=== PATIENT | female | born 1955 | race Caucasian/White ===

== ENCOUNTER → 2016-06-28 | Outpatient (CLI) | payer BC ==
[2016-06-28 08:39] LABS: CHLORIDE,CL 102 mmol/L (98-110); SODIUM,NA 137 mmol/L (136-146)
== END ==
LOC: MW.CHFP 07:57
PROVIDERS: ATTEND Student in an Organized Health Care Education/Training Program
DX: Z00.00 Encounter for general adult medical examination without abnormal findings (principal); I10 Essential (primary) hypertension; E78.00 Pure hypercholesterolemia, unspecified
CPT/HCPCS: 36415; 80053; 80061; 84443

== ENCOUNTER 2016-07-19 22:31 | Emergency (ER) | payer BC ==
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
[2016-07-20] MEDS ORDERED: LORazepam 2 MG/ML MDV IVPUSH ONE (00:04)
[2016-07-20] MEDS ORDERED: diphenhydrAMINE 50 MG/ML SDV IVPUSH ONE (00:04)
[2016-07-20] MEDS ORDERED: Haloperidol Lactate 5 MG/ML SDV IM ONE (00:06)
[2016-07-20 00:41] LABS: CHLORIDE,CL 99 mmol/L (98-110); SODIUM,NA 132 mmol/L (136-146)
[2016-07-20 01:42] VITALS: BP 96/57
--- NOTE | 2016-07-20 11:41 | CT ---
EXAM DATE: 07/19/16 PATIENT'S AGE: 60 Patient: MARS BROWN Facility: [place], [place] Site . Site : 1955 Study: CT Head [id number]/3/2017 11:22:58 PM Ordering Physician: Doctor Gilliam Final Report: INDICATION: Trauma TECHNIQUE: CT head without contrast. COMPARISON: 01/29/2016 FINDINGS: The ventricles and sulci demonstrate normal configuration and size for the patient`s age. There is no mass effect or midline shift. Small hypodensities inferior to the basal ganglia could represent chronic lacunar infarcts or dilated perivascular spaces. There is no loss of cantrell-white differentiation. There is no evidence of an acute intracranial hemorrhage. There is a right orbital floor fracture. There is right periorbital, preseptal and facial soft tissue swelling. There is blood in the right maxillary sinus. There is ethmoid sinus mucosal thickening and a mucosal retention cyst or polyp in the right sphenoid sinus. There is sclerosis of the right mastoid tip. Right exophthalmos is noted. IMPRESSION: No evidence of an acute intracranial hemorrhage, mass effect or loss of cantrell- white differentiation. Right orbital floor fracture and periorbital swelling. Correlate with facial bone imaging. Dictated by Alec Meléndez MD @ 07/19/2016 11:38:19 PM Dictated by: Alec Meléndez MD @ 07/19/2016 23:38:24 (Electronic Signature) Report Signed by Proxy and Original Signed Document filed in the Medical Record. CHRISTINA
--- NOTE | 2016-07-20 11:42 | CT ---
EXAM DATE: 07/19/16 PATIENT'S AGE: 60 Patient: MARS BROWN Facility: [place], [place] Site . Site : 1955 Study: CT Facial [id number]/3/2017 11:23:53 PM Ordering Physician: Doctor Gilliam Final Report: INDICATION: Trauma TECHNIQUE: CT maxillofacial without contrast. COMPARISON: None available FINDINGS: There is a displaced right orbital floor fracture with approximately 8 millimeter depression into the right maxillary sinus. There is right periorbital , preseptal and facial soft tissue swelling. There is right exophthalmos. A small amount of right intraorbital, extraconal blood is seen along the lateral aspect of the orbital floor. There is mild thickening of the right inferior rectus muscle in the region of the fracture. Few small foci of right intraorbital, extraconal gas are noted. There is blood in the right maxillary sinus. Mucosal thickening is seen in the paranasal sinuses with a right sphenoid sinus mucosal retention cyst or polyp. IMPRESSION: A depressed right orbital floor fracture. Small right intraorbital, extraconal blood and mild thickening of the right inferior rectus muscle with right exophthalmos. Recommend further ophthalmologic evaluation. Dictated by Alec Meléndez MD @ 07/19/2016 11:46:07 PM Dictated by: Alec Meléndez MD @ 07/19/2016 23:46:16 (Electronic Signature) Report Signed by Proxy and Original Signed Document filed in the Medical Record. CHRISTINA
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
== END 2016-07-20 01:20 ==
LOC: MW.ED 22:31
DX: S02.31XA Fracture of orbital floor, right side, initial encounter for closed fracture (principal); I25.2 Old myocardial infarction; I25.10 Atherosclerotic heart disease of native coronary artery without angina pectoris; F32.9 Major depressive disorder, single episode, unspecified; E03.9 Hypothyroidism, unspecified; F17.210 Nicotine dependence, cigarettes, uncomplicated; Z98.890 Other specified postprocedural states; Z79.82 Long term (current) use of aspirin; Z79.899 Other long term (current) drug therapy; Z88.0 Allergy status to penicillin; Y09 Assault by unspecified means
CPT/HCPCS: 36415; 70450; 70486; 71010; 80053; 82553; 84484; 85025; 93005; 96374; 96375; 99285; G0480; J1200; J1630; J2060; 99283

== ENCOUNTER 2016-09-30 23:25 | Inpatient (IN) | payer BC ==
[2016-09-30] MEDS ORDERED: Sodium Chloride 0.9% 2,000 ML IV ONE (23:46)
[2016-09-30] MEDS ORDERED: Thiamine 200 MG/2 ML MDV IVPUSH ONE (23:46)
--- NOTE | 2016-09-30 23:49 | EDM.PDOC ---
ED HPI GENERAL MEDICAL PROBLEM - General Chief Complaint: Neurological Problem Stated Complaint: POSSIBLE STROKE Time Seen by Provider: 09/30/16 23:30 Source of Information: Reports: EMS History Limitations: Reports: Intoxication - History of Present Illness INITIAL COMMENTS - FREE TEXT/NARRATIVE: HISTORY AND PHYSICAL: History of present illness: [61-year-old female with a history of alcoholism hyponatremia and hypothyroidism with chronic noncompliance and multiple prior visits to the emergency department for intoxication alcohol abuse and complications thereof, now brought in by EMS for evaluation of altered mental status. Friend went to check on the patient and she was confused and generally weak. She was brought by EMS to the emergency department. Review of systems: As per history of present illness and below otherwise all systems reviewed and negative. Past medical history: As per history of present illness and as reviewed below otherwise noncontributory. Surgical history: As per history of present illness and as reviewed below otherwise noncontributory. Social history: No reported history of drug or alcohol abuse. Family history: As per history of present illness and as reviewed below otherwise noncontributory. Physical exam: Fatigued appearing patient falling asleep easily but easily awakened to verbal stimuli. A shunt is able to comply with a complete neurologic exam and answer questions. She is confused but her neurologic exam is nonfocal. HEENT: Atraumatic, normocephalic, pupils reactive, negative for conjunctival pallor or scleral icterus, mucous membranes moist, throat clear, neck supple, nontender, trachea midline. Lungs: Clear to auscultation, breath sounds equal bilaterally, chest nontender. Heart: S1S2, regular, negative for clicks, rubs, or JVD. Abdomen: Soft, nondistended, nontender. Negative for masses or hepatosplenomegaly. Negative for costovertebral tenderness. Pelvis: Stable nontender. Genitourinary: Deferred. Rectal: Deferred. Extremities: Atraumatic, negative for cords or calf pain. Neurovascular unremarkable. Neuro: Awake, somnolent but arousable, oriented x person and place. Cranial nerves II through XII unremarkable. Cerebellum unremarkable. Motor and sensory unremarkable throughout. Exam nonfocal. Diagnostics: [Chest x-ray unremarkable EKG normal sinus rhythm normal axis no STEMI] Therapeutics: [IV fluids initiated as well as supplemental potassium. Thiamine administered as well as IV Synthroid] Impression: [] Plan: [Patient with altered mental status initially suspected website optimization strategist intoxication given patient's extensive history of alcoholism however a: Was negative and sodium 102. Suspect patient's altered mental status is secondary to her severe hyponatremia. Cautious and conservative repletion of her sodium initiated with IV fluids. Potassium and Synthroid supplemented. CT of the head unremarkable and patient nonfocal neurologically. Case discussed with Dr. Amadeo Castillo hospitalist website optimization strategist who is aware history and findings and agrees with inpatient admission to his service to the ICU.] Critical care 73 minutes Definitive disposition and diagnosis as appropriate pending reevaluation and review of above. - Related Data Allergies Allergy/AdvReac Type Severity Reaction Status Date / Time Penicillins Allergy Cannot Verified 09/30/16 23:31 Remember Home Meds: Home Meds Aspirin [Halfprin] 81 mg PO DAILY #10 tab.ec 01/22/16 [Rx] Escitalopram [Lexapro] 20 mg PO DAILY #10 tablet 01/22/16 [Rx] Levothyroxine Sodium [Levothyroxine Sodium] 150 mcg PO DAILY 07/19/16 [History] buPROPion HCl [Wellbutrin SR] 150 mg PO DAILY 07/19/16 [History] Past Medical History HEENT History: Reports: None Cardiovascular History: Reports: CAD, High Cholesterol, [place] Respiratory History: Reports: Asthma, COPD Gastrointestinal History: Reports: Pancreatitis Genitourinary History: Reports: None 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 History: Reports: 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 Neurological History: Reports: None Psychiatric History: Reports: Addiction, Depression Endocrine/Metabolic History: Reports: Hypothyroidism Hematologic History: Reports: None Immunologic History: Reports: None Oncologic (Cancer) History: Reports: None Dermatologic History: Reports: None - Infectious Disease History Infectious Disease History: Reports: None - Past Surgical History Musculoskeletal Surgical History: Reports: Other (See Below) Social & Family History - Family History Family Medical History: Noncontributory HEENT: Reports: None Cardiac: Reports: None Respiratory: Reports: None GI: Reports: None : Reports: None OBGYN: Reports: None Musculoskeletal: Reports: None Neurological: Reports: None Psychiatric: Reports: None Endocrine/Metabolic: Reports: None Hematologic: Reports: None Immunologic: Reports: None Dermatologic: Reports: None Oncologic: Reports: None - Tobacco Use Smoking Status *Q: Unknown Ever Smoked Years of Tobacco use: 20 Packs/Tins Daily: 2 Second Hand Smoke Exposure: No - Caffeine Use Caffeine Use: Reports: None - Alcohol Use Days Per Week of Alcohol Use: 7 Number of Drinks Per Day: 6 Total Drinks Per Week: 42 - Recreational Drug Use Recreational Drug Use: No - Living Situation & Occupation Living situation: Reports: ED ROS GENERAL - Review of Systems Review Of Systems: See Below (History of present illness) ED EXAM, GENERAL - Physical Exam Exam: See Below (History of present illness) Course - Vital Signs Last Recorded V/S: Last Vital Signs Temp 36.6 C 09/30/16 23:31 Pulse 68 09/30/16 23:31 Resp 16 09/30/16 23:31 BP 115/65 09/30/16 23:31 Pulse Ox 98 09/30/16 23:31 - Orders/Labs/Meds Orders: Active Orders 24 hr Category Date Time Status Patient Status [ADT] Stat ADT 10/01/16 00:52 Active EKG Documentation Completion [RC] STAT Care 09/30/16 23:46 Active Peripheral IV Care [RC] . DIRECTED Care 09/30/16 23:46 Active Chest 1V Frontal [CR] Stat Exams 09/30/16 23:46 Taken Head wo Cont [CT] Stat Exams 09/30/16 23:47 Taken FREE T3 [REF] Stat Lab 09/30/16 23:29 Received Peripheral IV Insertion Adult [OM.PC] Stat Oth 09/30/16 23:46 Ordered Medication Orders Sodium Chloride (Normal Saline) 1,000 mls @ 25 mls/hr IV .BOLUS ONE Stop: 10/02/16 17:22 Potassium Chloride/Sodium Chloride (Normal Saline With 40 Meq Kcl) 500 mls @ 125 mls/hr IV ASDIRECTED [facility] Labs: Laboratory Tests 09/30/16 09/30/16 09/30/16 Range/Units 23:29 23:29 23:29 WBC 20.96 H (4.0-11.0) K/uL RBC 4.39 (4.30-5.90) M/uL Hgb 14.7 (12.0-16.0) g/dL Hct 38.2 (36.0-46.0) % MCV 87.0 (80.0-98.0) fL MCH 33.5 H (27.0-32.0) pg MCHC 38.5 H (31.0-37.0) g/dL RDW Std Deviation 38.5 (28.0-62.0) fl RDW Coeff of Ayleen 12 (11.0-15.0) % Plt Count 209 (150-400) K/uL MPV 10.40 (7.40-12.00) fL Add Manual Diff YES Neutrophils % (Manual) 70 (48.0-80.0) % Band Neutrophils % 5 % Lymphocytes % (Manual) 12 L (16.0-40.0) % Monocytes % (Manual) 13 (0.0-15.0) % Nucleated RBC % 0.0 /100WBC Absolute Seg Neuts 14.7 Band Neutrophils # 1.0 Lymphocytes # (Manual) 2.5 Monocytes # (Manual) 2.7 Nucleated RBCs # 0 K/uL Sodium 102 L* (136-146) mmol/L Potassium 3.0 L (3.5-5.1) mmol/L Chloride 55 L (98-110) mmol/L Carbon Dioxide 27 (21-31) mmol/L BUN 12 (6.0-23.0) mg/dL Creatinine 0.7 (0.6-1.5) mg/dL Est Cr Clr Drug Dosing TNP Estimated GFR (MDRD) > 60.0 ml/min Glucose 106 (60-110) mg/dL Calcium 8.8 (8.8-10.8) mg/dL Total Bilirubin 1.2 (0.1-1.5) mg/dL AST 56 H (5-40) IU/L ALT 36 (8-54) IU/L Alkaline Phosphatase 71 (40-150) Troponin I < 0.10 (0.0-0.29) NG/ML Total Protein 7.0 (6.0-8.0) g/dL Albumin 4.5 (3.4-4.8) g/dL Globulin 2.5 (2.0-3.5) g/dL Albumin/Globulin Ratio 1.8 (1.3-2.8) TSH 3rd Generation 20.23 H (0.47-5.0) uIU/mL Urine Color Urine Appearance Urine pH (5.0-8.0) Ur Specific [place] (1.001-1.035) Urine Protein (NEGATIVE) mg/dL Urine Glucose (UA) (NEGATIVE) mg/dL Urine Ketones (NEGATIVE) mg/dL Urine Occult Blood (NEGATIVE) Urine Nitrite (NEGATIVE) Urine Bilirubin (NEGATIVE) Urine Urobilinogen (<2.0) EU/dL Ur Leukocyte Esterase (NEGATIVE) Urine RBC (0-2/HPF) Urine WBC (0-5/HPF) Ur Epithelial Cells (NONE-FEW) Urine Bacteria (NEGATIVE) Salicylates < 5.0 (0-20) mg/dL Urine Opiates Screen (NEGATIVE) Ur Oxycodone Screen (NEGATIVE) Urine Methadone Screen (NEGATIVE) Acetaminophen < 3.0 ug/mL Ur Barbiturates Screen (NEGATIVE) Ur Phencyclidine Scrn (NEGATIVE) Ur Amphetamine Screen (NEGATIVE) U Methamphetamines Scrn (NEGATIVE) U Benzodiazepines Scrn (NEGATIVE) U Cocaine Metab Screen (NEGATIVE) U Marijuana (THC) Screen (NEGATIVE) Ethyl Alcohol mg/dL 09/30/16 10/01/16 10/01/16 Range/Units 23:29 01:05 01:05 WBC (4.0-11.0) K/uL RBC (4.30-5.90) M/uL Hgb (12.0-16.0) g/dL Hct (36.0-46.0) % MCV (80.0-98.0) fL MCH (27.0-32.0) pg MCHC (31.0-37.0) g/dL RDW Std Deviation (28.0-62.0) fl RDW Coeff of Ayleen (11.0-15.0) % Plt Count (150-400) K/uL MPV (7.40-12.00) fL Add Manual Diff Neutrophils % (Manual) (48.0-80.0) % Band Neutrophils % % Lymphocytes % (Manual) (16.0-40.0) % Monocytes % (Manual) (0.0-15.0) % Nucleated RBC % /100WBC Absolute Seg Neuts Band Neutrophils # Lymphocytes # (Manual) Monocytes # (Manual) Nucleated RBCs # K/uL Sodium (136-146) mmol/L Potassium (3.5-5.1) mmol/L Chloride (98-110) mmol/L Carbon Dioxide (21-31) mmol/L BUN (6.0-23.0) mg/dL Creatinine (0.6-1.5) mg/dL Est Cr Clr Drug Dosing Estimated GFR (MDRD) ml/min Glucose (60-110) mg/dL Calcium (8.8-10.8) mg/dL Total Bilirubin (0.1-1.5) mg/dL AST (5-40) IU/L ALT (8-54) IU/L Alkaline Phosphatase (40-150) Troponin I (0.0-0.29) NG/ML Total Protein (6.0-8.0) g/dL Albumin (3.4-4.8) g/dL Globulin (2.0-3.5) g/dL Albumin/Globulin Ratio (1.3-2.8) TSH 3rd Generation (0.47-5.0) uIU/mL Urine Color YELLOW Urine Appearance CLEAR Urine pH 6.0 (5.0-8.0) Ur Specific [place] 1.025 (1.001-1.035) Urine Protein TRACE (NEGATIVE) mg/dL Urine Glucose (UA) NEGATIVE (NEGATIVE) mg/dL Urine Ketones 15 H (NEGATIVE) mg/dL Urine Occult Blood NEGATIVE (NEGATIVE) Urine Nitrite NEGATIVE (NEGATIVE) Urine Bilirubin NEGATIVE (NEGATIVE) Urine Urobilinogen 0.2 (<2.0) EU/dL Ur Leukocyte Esterase NEGATIVE (NEGATIVE) Urine RBC 0-2 (0-2/HPF) Urine WBC 0-1 (0-5/HPF) Ur Epithelial Cells RARE (NONE-FEW) Urine Bacteria FEW (NEGATIVE) Salicylates (0-20) mg/dL Urine Opiates Screen NEGATIVE (NEGATIVE) Ur Oxycodone Screen NEGATIVE (NEGATIVE) Urine Methadone Screen NEGATIVE (NEGATIVE) Acetaminophen ug/mL Ur Barbiturates Screen NEGATIVE (NEGATIVE) Ur Phencyclidine Scrn NEGATIVE (NEGATIVE) Ur Amphetamine Screen NEGATIVE (NEGATIVE) U Methamphetamines Scrn NEGATIVE (NEGATIVE) U Benzodiazepines Scrn NEGATIVE (NEGATIVE) U Cocaine Metab Screen NEGATIVE (NEGATIVE) U Marijuana (THC) Screen NEGATIVE (NEGATIVE) Ethyl Alcohol < 10.0 mg/dL Meds: Medications Generic Name Dose Route Start Last Admin Trade Name Freq PRN Reason Stop Dose Admin Sodium Chloride 1,000 mls @ 25 mls/hr 10/01/16 01:23 Normal Saline IV 10/02/16 17:22 .BOLUS ONE Potassium Chloride/Sodium Chloride 500 mls @ 125 mls/hr 10/01/16 01:30 Normal Saline With 40 Meq Kcl IV ASDIRECTED [facility] Discontinued Medications Generic Name Dose Route Start Last Admin Trade Name Padilla PRN Reason Stop Dose Admin Sodium Chloride 2,000 mls @ 999 mls/hr 09/30/16 23:46 10/01/16 00:34 Normal Saline IV 10/01/16 01:46 Not Given .Bolus ONE Sodium Chloride 1,000 mls @ 200 mls/hr 10/01/16 00:08 10/01/16 00:34 Normal Saline IV 10/01/16 05:07 200 mls/hr .BOLUS ONE Administration Potassium Chloride/Dextrose/Sod Cl 50 mls @ 25 mls/hr 10/01/16 00:45 D5 Ns With 20 Meq Kcl IV ASDIRECTED [facility] Levothyroxine Sodium 100 mcg 10/01/16 00:48 10/01/16 01:51 Synthroid IVPUSH 10/01/16 00:49 100 mcg ONETIME ONE Administration Ondansetron HCl 4 mg 10/01/16 00:23 10/01/16 00:34 Zofran IVPUSH 10/01/16 00:24 4 mg ONETIME ONE Administration Thiamine HCl 100 mg 09/30/16 23:46 10/01/16 00:34 Vitamin B-1 IVPUSH 09/30/16 23:47 100 mg ONETIME ONE Administration Departure - Departure Time of Disposition: 00:56 Disposition: Admitted As Inpatient 65 Condition: Critical Clinical Impression: Hyponatremia, Hypokalemia, Hypochloremia, Noncompliance with medication regimen , Hypothyroidism, Altered mental status - Discharge Information - My Orders Last 24 Hours: My Active Orders 09/30/16 23:29 FREE T3 [REF] Stat 09/30/16 23:46 EKG Documentation Completion [RC] STAT Peripheral IV Care [RC] . DIRECTED Chest 1V Frontal [CR] Stat Peripheral IV Insertion Adult [OM.PC] Stat 09/30/16 23:47 Head wo Cont [CT] Stat 10/01/16 00:52 Patient Status [ADT] Stat - Assessment/Plan Last 24 Hours: My Active Orders 09/30/16 23:29 FREE T3 [REF] Stat 09/30/16 23:46 EKG Documentation Completion [RC] STAT Peripheral IV Care [RC] . DIRECTED Chest 1V Frontal [CR] Stat Peripheral IV Insertion Adult [OM.PC] Stat 09/30/16 23:47 Head wo Cont [CT] Stat 10/01/16 00:52 Patient Status [ADT] Stat
[2016-09-30 23:56] LABS: CHLORIDE,CL 55 mmol/L (98-110); SODIUM,NA 102 mmol/L (136-146)
[2016-10-01 00:05] LABS: ACETAMINOPHEN < 3.0 ug/mL
[2016-10-01] MEDS ORDERED: Sodium Chloride 0.9% 1,000 ML IV ONE ×2 (00:08→01:23)
[2016-10-01] MEDS ORDERED: Ondansetron 4 MG/2 ML SDV IVPUSH ONE (00:23)
[2016-10-01] MEDS ORDERED: DEXTROSE IV SCH (00:45)
[2016-10-01] MEDS ORDERED: KCL IV SCH (00:45)
[2016-10-01] MEDS ORDERED: NACL IV SCH (00:45)
[2016-10-01] MEDS ORDERED: Levothyroxine 100 MCG Vial IVPUSH ONE (00:48)
[2016-10-01] MEDS ORDERED: Sodium Chloride 0.9% with KCl 500 ML IV SCH (01:30)
[2016-10-01 02:41] LABS: CHLORIDE,CL 56 mmol/L (98-110); SODIUM,NA 102 mmol/L (136-146)
[2016-10-01] MEDS ORDERED: Potassium Chloride 20 MEQ Tab.ER PO ONE ×2 (02:57→19:35)
[2016-10-01] MEDS ORDERED: LORazepam 2 MG/ML MDV IVPUSH PRN (03:05)
[2016-10-01] MEDS ORDERED: Sodium Chloride 0.9% with KCl 1,000 ML IV SCH (03:15)
--- NOTE | 2016-10-01 03:15 | PCM.HP ---
H&P History of Present Illness - History of Present Illness Initial Comments - Free Text/Narative: 61 yo female with pmh of hypothyrodism and alcoholism. She has had multiple admission for alcohol intoxication and hyponatremia. She presents to the ED due to altered mental status. She was found by friends to be confused with generalized weakness. In the ED she was noted to have a sodium of 102 but alcohol level was undetectable. - Related Data Allergies/Adverse Reactions: Allergies Allergy/AdvReac Type Severity Reaction Status Date / Time Penicillins Allergy Cannot Verified 09/30/16 23:31 Remember Home Medications: Home Meds Aspirin [Halfprin] 81 mg PO DAILY #10 tab.ec 01/22/16 [Rx] Escitalopram [Lexapro] 20 mg PO DAILY #10 tablet 01/22/16 [Rx] Levothyroxine Sodium [Levothyroxine Sodium] 150 mcg PO ACBREAKFAST 07/19/16 [ History] buPROPion HCl [Wellbutrin SR] 150 mg PO BID 07/19/16 [History] Past Medical History HEENT History: Reports: None Cardiovascular History: Reports: CAD, High Cholesterol, [place] Respiratory History: Reports: Asthma, COPD Gastrointestinal History: Reports: Pancreatitis Genitourinary History: Reports: None [employer] History: Reports: None Neurological History: Reports: None Psychiatric History: Reports: Addiction, Depression Endocrine/Metabolic History: Reports: Hypothyroidism Hematologic History: Reports: None Immunologic History: Reports: None Oncologic (Cancer) History: Reports: None Dermatologic History: Reports: None - Infectious Disease History Infectious Disease History: Reports: None - Past Surgical History Musculoskeletal Surgical History: Reports: Other (See Below) Social & Family History - Family History Family Medical History: Noncontributory HEENT: Reports: None Cardiac: Reports: None Respiratory: Reports: None GI: Reports: None : Reports: None OBGYN: Reports: None Musculoskeletal: Reports: None Neurological: Reports: None Psychiatric: Reports: None Endocrine/Metabolic: Reports: None Hematologic: Reports: None Immunologic: Reports: None Dermatologic: Reports: None Oncologic: Reports: None - Tobacco Use Smoking Status *Q: Unknown Ever Smoked Years of Tobacco use: 20 Packs/Tins Daily: 2 Second Hand Smoke Exposure: No - Caffeine Use Caffeine Use: Reports: None - Alcohol Use Days Per Week of Alcohol Use: 7 Number of Drinks Per Day: 6 Total Drinks Per Week: 42 - Recreational Drug Use Recreational Drug Use: No - Living Situation & Occupation Living situation: Reports: H&P Review of Systems - Review of Systems: Review Of Systems: See Below Exam - Exam Exam: See Below - Vital Signs Vital Signs: Last Vital Signs Temp 36.1 C 10/01/16 02:00 Pulse 68 09/30/16 23:31 Resp 12 10/01/16 02:00 BP 113/59 L 10/01/16 02:00 Pulse Ox 97 10/01/16 02:00 Weight: 43.998 kg - Exam General: Alert, Oriented (orientated to place), Lethargic HEENT: Mucosa Moist & [place] Neck: Supple, Trachea Midline, Full Range of Motion. No: JVD Lungs: Clear to Auscultation, Normal Respiratory Effort Cardiovascular: Regular Rate, Regular Rhythm Abdomen: Soft. No: Tenderness Extremities: Normal Inspection. No: Edema Skin: Warm, Dry, Intact Neurological: Cranial Nerves Intact, Strength Equal Bilateral, Normal Speech, Normal Tone. No: Focal Deficit Neuro Extensive - Mental Status: Memory Loss-Recent Events (unable to recall todays events) - Patient Data Lab Results Last 24 hrs: Laboratory Results - last 24 hr 10/01/16 10/01/16 Range/Units 02:20 02:20 Sodium 102 L* (136-146) mmol/L Potassium 2.9 L (3.5-5.1) mmol/L Chloride 56 L (98-110) mmol/L Carbon Dioxide 30 (21-31) mmol/L BUN 11 (6.0-23.0) mg/dL Creatinine 0.6 (0.6-1.5) mg/dL Est Cr Clr Drug Dosing TNP Estimated GFR (MDRD) > 60.0 ml/min Glucose 79 (60-110) mg/dL Calcium 8.4 L (8.8-10.8) mg/dL Magnesium 1.7 (1.5-2.3) mEq/L Result Diagrams: 10/01/16 08:25 10/01/16 10:49 *Q Meaningful Use (ADM) - VTE *Q VTE Criteria *Q: - Stroke *Q Stroke Criteria *Q: - AMI *Q AMI Criteria *Q: Problem List Initiated/Reviewed/Updated: Yes Orders Last 24hrs: Active Orders 24 hr Category Date Time Status BMP [BASIC METABOLIC PANEL,BMP] [CHEM] Q2H Lab 10/01/16 04:30 Ordered BMP [BASIC METABOLIC PANEL,BMP] [CHEM] Q2H Lab 10/01/16 06:30 Ordered BMP [BASIC METABOLIC PANEL,BMP] [CHEM] Q2H Lab 10/01/16 08:30 Ordered MAGNESIUM [CHEM] Routine Lab 10/01/16 02:20 Results OSMOLALITY - SERUM [REF] Routine Lab 10/01/16 02:46 Received OSMOLALITY - URINE Routine Lab 10/01/16 02:46 Ordered SODIUM,URINE RANDOM [URCHEM] Routine Lab 10/01/16 02:50 Uncollected T4 FREE [CHEM] Routine Lab 10/01/16 02:20 Results T4 TOTAL [CHEM] Routine Lab 10/01/16 02:20 Results Folic Acid Med 10/01/16 09:00 Active 1 mg SUBCUT DAILY LORazepam [Ativan] Med 10/01/16 03:05 Ordered See Protocol IVPUSH Q4H PRN Sodium Chloride 0.9% with KCl 40 mEq @ Enter Rate (1000 Med 10/01/16 03:15 Ordered mL) Sodium Chloride 0.9% with KCl [Normal Saline with 40 mEq KCl] 1,000 ml IV ASDIRECTED Thiamine [Vitamin B-1] Med 10/01/16 21:00 Active 100 mg PO BEDTIME Medication Orders Folic Acid (Folic Acid) 1 mg SUBCUT DAILY EDOUARD Potassium Chloride/Sodium Chloride (Normal Saline With 40 Meq Kcl) 1,000 mls @ 150 mls/hr IV ASDIRECTED EDOUARD Stop: 10/01/16 09:54 Lorazepam (Ativan) 0 mg IVPUSH Q4H PRN; Protocol PRN Reason: Agitation Thiamine HCl (Vitamin B-1) 100 mg PO BEDTIME EDOUARD Assessment/Plan Comment:: 61 yo female who presents with altered mental status. Patient is alert, cooperative but lethargic. She has severe hyponatremia with history of alcohol abuse. Difficult to assess how far off from baseline her mental status is. Hyponatremia: sodium is 102. I called eICU and spoke with Dr. Tolentino who will help with monitoring sodium. Will give NS at 150 and check sodium q2hrs ETOH abuse: Thiamin and folic acid, CIWA protocol with prn ativan Hypothyrodsim: will check t4, 100mg IV of synthroid given in ED.
[2016-10-01 05:39] LABS: CHLORIDE,CL 58 mmol/L (98-110)
[2016-10-01 05:42] LABS: SODIUM,NA 105 mmol/L (136-146)
[2016-10-01 07:02] LABS: CHLORIDE,CL 62 mmol/L (98-110)
[2016-10-01 07:15] LABS: SODIUM,NA 104 mmol/L (136-146)
[2016-10-01] MEDS: Folic Acid 50 MG/10 ML MDV SUBCUT SCH (08:26)
[2016-10-01 09:04] LABS: CHLORIDE,CL 65 mmol/L (98-110)
[2016-10-01 09:14] LABS: SODIUM,NA 108 mmol/L (136-146)
[2016-10-01] MEDS ORDERED: Sodium Chloride 0.45% with KCl 1,000 ML IV SCH (10:30)
[2016-10-01] MEDS: Nicotine 21 MG/24 Hr Patch TRDERM SCH (10:46)
[2016-10-01] MEDS: Ondansetron 4 MG/2 ML SDV IVPUSH PRN ×2 (11:45→21:44)
[2016-10-01 12:19] LABS: CHLORIDE,CL 70 mmol/L (98-110)
[2016-10-01 12:26] LABS: SODIUM,NA 111 mmol/L (136-146)
[2016-10-01] MEDS ORDERED: Dextrose 5% in Water 1,000 ML IV SCH (12:45)
--- NOTE | 2016-10-01 14:26 | PCM.PN ---
- Review of Systems Systems Review Comment:: more awake today. - Patient Data Vitals - most recent: Last Vital Signs Temp 36.9 C 10/01/16 11:00 Pulse 59 L 10/01/16 00:30 Resp 14 10/01/16 12:00 BP 110/59 L 10/01/16 12:00 Pulse Ox 98 10/01/16 12:00 Weight - most recent: 43.998 kg I&O - last 24 hours: Intake & Output 09/30/16 10/01/16 10/01/16 22:59 06:59 14:59 Intake Total 190 2000 Output Total 400 1400 Balance -210 600 Lab Results last 24 hrs: Laboratory Results - last 24 hr 10/01/16 10/01/16 10/01/16 Range/Units 02:20 02:20 04:25 WBC (4.0-11.0) K/uL RBC (4.30-5.90) M/uL Hgb (12.0-16.0) g/dL Hct (36.0-46.0) % MCV (80.0-98.0) fL MCH (27.0-32.0) pg MCHC (31.0-37.0) g/dL RDW Std Deviation (28.0-62.0) fl RDW Coeff of Ayleen (11.0-15.0) % Plt Count (150-400) K/uL MPV (7.40-12.00) fL Neut % (Auto) (48.0-80.0) % Lymph % (Auto) (16.0-40.0) % [place] % (Auto) (0.0-15.0) % Eos % (Auto) (0.0-7.0) % Baso % (Auto) (0.0-1.5) % Neut # (Auto) (1.4-5.7) K/uL Lymph # (Auto) (0.6-2.4) K/uL [place] # (Auto) (0.0-0.8) K/uL Eos # (Auto) (0.0-0.7) K/uL Baso # (Auto) (0.0-0.1) K/uL Nucleated RBC % /100WBC Nucleated RBCs # K/uL Sodium 102 L* 105 L* (136-146) mmol/L Potassium 2.9 L 3.1 L (3.5-5.1) mmol/L Chloride 56 L 58 L (98-110) mmol/L Carbon Dioxide 30 28 (21-31) mmol/L BUN 11 11 (6.0-23.0) mg/dL Creatinine 0.6 0.6 (0.6-1.5) mg/dL Est Cr Clr Drug Dosing TNP TNP Estimated GFR (MDRD) > 60.0 > 60.0 ml/min Glucose 79 66 (60-110) mg/dL Calcium 8.4 L 8.4 L (8.8-10.8) mg/dL Magnesium 1.7 (1.5-2.3) mEq/L Free T4 1.10 (0.7-1.48) ng/dL 10/01/16 10/01/16 10/01/16 Range/Units 06:35 08:25 08:25 WBC 20.79 H (4.0-11.0) K/uL RBC 4.20 L (4.30-5.90) M/uL Hgb 14.2 (12.0-16.0) g/dL Hct 37.1 (36.0-46.0) % MCV 88.3 (80.0-98.0) fL MCH 33.8 H (27.0-32.0) pg MCHC 38.3 H (31.0-37.0) g/dL RDW Std Deviation 39.0 (28.0-62.0) fl RDW Coeff of Ayleen 12 (11.0-15.0) % Plt Count 181 (150-400) K/uL MPV 10.50 (7.40-12.00) fL Neut % (Auto) 82.8 H (48.0-80.0) % Lymph % (Auto) 4.8 L (16.0-40.0) % [place] % (Auto) 12.4 (0.0-15.0) % Eos % (Auto) 0.0 (0.0-7.0) % Baso % (Auto) 0.0 (0.0-1.5) % Neut # (Auto) 17.2 H (1.4-5.7) K/uL Lymph # (Auto) 1.0 (0.6-2.4) K/uL [place] # (Auto) 2.6 H (0.0-0.8) K/uL Eos # (Auto) 0.0 (0.0-0.7) K/uL Baso # (Auto) 0.0 (0.0-0.1) K/uL Nucleated RBC % 0.3 /100WBC Nucleated RBCs # 0 K/uL Sodium 104 L* 108 L* (136-146) mmol/L Potassium 3.1 L 3.2 L (3.5-5.1) mmol/L Chloride 62 L 65 L (98-110) mmol/L Carbon Dioxide 28 27 (21-31) mmol/L BUN 11 10 (6.0-23.0) mg/dL Creatinine 0.6 0.6 (0.6-1.5) mg/dL Est Cr Clr Drug Dosing 74.74 74.74 Estimated GFR (MDRD) > 60.0 > 60.0 ml/min Glucose 74 72 (60-110) mg/dL Calcium 8.0 L 8.1 L (8.8-10.8) mg/dL Magnesium (1.5-2.3) mEq/L Free T4 (0.7-1.48) ng/dL 10/01/16 Range/Units 10:49 WBC (4.0-11.0) K/uL RBC (4.30-5.90) M/uL Hgb (12.0-16.0) g/dL Hct (36.0-46.0) % MCV (80.0-98.0) fL MCH (27.0-32.0) pg MCHC (31.0-37.0) g/dL RDW Std Deviation (28.0-62.0) fl RDW Coeff of Ayleen (11.0-15.0) % Plt Count (150-400) K/uL MPV (7.40-12.00) fL Neut % (Auto) (48.0-80.0) % Lymph % (Auto) (16.0-40.0) % [place] % (Auto) (0.0-15.0) % Eos % (Auto) (0.0-7.0) % Baso % (Auto) (0.0-1.5) % Neut # (Auto) (1.4-5.7) K/uL Lymph # (Auto) (0.6-2.4) K/uL [place] # (Auto) (0.0-0.8) K/uL Eos # (Auto) (0.0-0.7) K/uL Baso # (Auto) (0.0-0.1) K/uL Nucleated RBC % /100WBC Nucleated RBCs # K/uL Sodium 111 L* (136-146) mmol/L Potassium 3.3 L (3.5-5.1) mmol/L Chloride 70 L (98-110) mmol/L Carbon Dioxide 28 (21-31) mmol/L BUN 10 (6.0-23.0) mg/dL Creatinine 0.7 (0.6-1.5) mg/dL Est Cr Clr Drug Dosing 64.06 Estimated GFR (MDRD) > 60.0 ml/min Glucose 75 (60-110) mg/dL Calcium 8.5 L (8.8-10.8) mg/dL Magnesium (1.5-2.3) mEq/L Free T4 (0.7-1.48) ng/dL Med Orders - Current: Current Medications Folic Acid (Folic Acid) 1 mg SUBCUT DAILY [facility] Last Admin: 10/01/16 08:26 Dose: 1 mg Dextrose/Water (Dextrose 5% In Water) 1,000 mls @ 50 mls/hr IV ASDIRECTED [facility] Last Admin: 10/01/16 12:55 Dose: 50 mls/hr Levofloxacin (Levaquin) 750 mg PO Q24H EDOUARD Lorazepam (Ativan) 0 mg IVPUSH Q4H PRN; Protocol PRN Reason: Agitation Nicotine (Habitrol) 21 mg TRDERM DAILY [facility] Last Admin: 10/01/16 10:46 Dose: 21 mg Ondansetron HCl (Zofran) 4 mg IVPUSH Q6H PRN PRN Reason: Nausea/Vomiting Last Admin: 10/01/16 11:45 Dose: 4 mg Thiamine HCl (Vitamin B-1) 100 mg PO BEDTIME EDOUARD Discontinued Medications Sodium Chloride (Normal Saline) 2,000 mls @ 999 mls/hr IV .Bolus ONE Stop: 10/01/16 01:46 Last Admin: 10/01/16 00:34 Dose: Not Given Sodium Chloride (Normal Saline) 1,000 mls @ 200 mls/hr IV .BOLUS ONE Stop: 10/01/16 05:07 Last Admin: 10/01/16 00:34 Dose: 200 mls/hr Potassium Chloride/Dextrose/Sod Cl (D5 Ns With 20 Meq Kcl) 50 mls @ 25 mls/hr IV ASDIRECTED EDOUARD Sodium Chloride (Normal Saline) 1,000 mls @ 25 mls/hr IV .BOLUS ONE Stop: 10/02/16 17:22 Last Infusion: 10/01/16 02:31 Dose: 25 mls/hr Potassium Chloride/Sodium Chloride (Normal Saline With 40 Meq Kcl) 500 mls @ 125 mls/hr IV ASDIRECTED EDOUARD Last Infusion: 10/01/16 02:32 Dose: 125 mls/hr Potassium Chloride/Sodium Chloride (Normal Saline With 40 Meq Kcl) 1,000 mls @ 150 mls/hr IV ASDIRECTED EDOUARD Stop: 10/01/16 09:54 Last Admin: 10/01/16 03:22 Dose: 150 mls/hr Potassium Chloride/Sodium Chloride (1/2 Ns With 20 Meq Kcl) 1,000 mls @ 50 mls/ hr IV ASDIRECTED EDOUARD Last Admin: 10/01/16 10:50 Dose: 50 mls/hr Levothyroxine Sodium (Synthroid) 100 mcg IVPUSH ONETIME ONE Stop: 10/01/16 00:49 Last Admin: 10/01/16 01:51 Dose: 100 mcg Ondansetron HCl (Zofran) 4 mg IVPUSH ONETIME ONE Stop: 10/01/16 00:24 Last Admin: 10/01/16 00:34 Dose: 4 mg Potassium Chloride (Klor-Con M20) 40 meq PO ONETIME ONE Stop: 10/01/16 02:58 Last Admin: 10/01/16 03:07 Dose: 40 meq Thiamine HCl (Vitamin B-1) 100 mg IVPUSH ONETIME ONE Stop: 09/30/16 23:47 Last Admin: 10/01/16 00:34 Dose: 100 mg - Exam General: alert, oriented HEENT: Mucous membr. moist/pink Neck: supple Lungs: Clear to auscultation, Normal respiratory effort Cardiovascular: Regular Rate, Regular Rhythm Abdomen: bowel sounds present, soft, no tenderness, no distension Back Exam: No: CVA Tenderness (L), CVA Tenderness (R) Extremities: no edema Skin: warm, dry, intact Neurological: no new focal deficit - Problem List Review Problem List Initiated/Reviewed/Updated: Yes - My Orders Last 24 Hours: My Active Orders 10/01/16 01:05 CULTURE URINE [RM] Routine OSMOLALITY - URINE Routine 10/01/16 02:20 MAGNESIUM [CHEM] Routine T4 FREE [CHEM] Routine T4 TOTAL [CHEM] Routine 10/01/16 02:46 OSMOLALITY - SERUM [REF] Routine 10/01/16 03:05 LORazepam [Ativan] See Protocol IVPUSH Q4H PRN 10/01/16 09:00 Folic Acid 1 mg SUBCUT DAILY 10/01/16 10:19 Blood Culture x2 Reflex Set [OM.PC] Stat 10/01/16 10:34 CULTURE BLOOD [BC] Stat 10/01/16 10:49 CULTURE BLOOD [BC] Stat 10/01/16 14:30 Levofloxacin [Levaquin] 750 mg PO Q24H 10/01/16 21:00 Thiamine [Vitamin B-1] 100 mg PO BEDTIME 10/01/16 Breakfast Regular Diet [DIET] 10/02/16 05:11 CBC WITH AUTO DIFF [HEME] AM 10/03/16 05:11 CBC WITH AUTO DIFF [HEME] AM 10/04/16 05:11 CBC WITH AUTO DIFF [HEME] AM - Plan Plan:: 61 yo female who presents with altered mental status. Patient is alert, cooperative but lethargic. She has severe hyponatremia with history of alcohol abuse. Difficult to assess how far off from baseline her mental status is. Hyponatremia: sodium is 111. patient on d5W to slow down rate of correction. eICU following ETOH abuse: Thiamin and folic acid, CIWA protocol with prn ativan Hypothyrodsim: resume home dose of thyroid replacement Leukocytosis: unexplained no source identified on exam. no fevers, patient does not appear toxic. patient does report dysuria. Will start Levaquin empirically. blood and urine cultures obtained.
[2016-10-01] MEDS ORDERED: Levofloxacin 500 MG Tab PO SCH (14:30)
[2016-10-01] MEDS: Levofloxacin 250 MG Tab PO SCH (14:44)
[2016-10-01 15:08] LABS: CHLORIDE,CL 72 mmol/L (98-110)
[2016-10-01 15:11] LABS: SODIUM,NA 113 mmol/L (136-146)
[2016-10-01] MEDS: Desmopressin 4 MCG/1 ML Amp SUBCUT SCH ×2 (16:12→18:32)
--- NOTE | 2016-10-01 17:35 | CT ---
EXAM DATE: 10/01/16 PATIENT'S AGE: 61 Patient: MARS BROWN Facility: [place], [place] Site . Site : 1955 Study: CT Head [id number]/[id number] 11:51:49 PM Ordering Physician: Doctor Gilliam Final Report: INDICATION: Change in mental status TECHNIQUE: CT head without contrast. COMPARISON: 07/18/2016 FINDINGS: CSF spaces: Within normal limits for age. Brain parenchyma: The cantrell-white differentiation is normal. No sign of mass, hemorrhage, or midline shift. Skull base and calvarium: Serosal thickening right maxillary sinus. The visualized orbits are grossly unremarkable. No skull fractures. IMPRESSION: Unremarkable noncontrast head CT. Dictated by Tyrel Pierre MD @ 10/01/2016 12:05:17 AM Dictated by: Tyrel Pierre MD @ 10/01/2016 00:05:19 (Electronic Signature) Report Signed by Proxy. CHRISTINA
--- NOTE | 2016-10-01 17:36 | CR ---
EXAM DATE: 10/01/16 PATIENT'S AGE: 61 Patient: MARS BROWN Facility: [place], [place] Site . Site : 1955 Study: XRay Chest [id number]/16/2017 12:06:34 AM Ordering Physician: Doctor Gilliam Final Report: INDICATION: Altered mental status TECHNIQUE: Chest radiograph 1 view COMPARISON: 07/20/2016. FINDINGS: Cardiovascular and mediastinum: The heart silhouette is normal in size and morphology. The mediastinum is normal in appearance. Lungs and pleural spaces: Both lungs are unremarkable in appearance. No sign of pleural effusion seen. No pneumothorax is identified. Bones and soft tissues: Left clavicular reconstruction plate noted without interval change. IMPRESSION: 1. No acute cardiopulmonary disease is seen. Dictated by Abhi Escalante MD @ 10/01/2016 12:11:35 AM Dictated by: Abhi Escalante MD @ 10/01/2016 00:12:10 (Electronic Signature) Report Signed by Proxy. CHRISTINA
[2016-10-01 19:27] LABS: CHLORIDE,CL 73 mmol/L (98-110)
[2016-10-01 19:33] LABS: SODIUM,NA 112 mmol/L (136-146)
[2016-10-01] MEDS ORDERED: Potassium Chloride 40 MEQ in Dextrose 5% in Water 1,000 ML IV SCH ×2 (19:45)
[2016-10-01] MEDS: Thiamine 100 MG Tab PO SCH (20:07)
[2016-10-01] MEDS: Aluminum Hydroxide/Magnesium Hydroxide/Simethicone Susp 30 ML Cup PO PRN (20:47)
[2016-10-01] MEDS: Morphine 2 MG/ML Syringe IVPUSH PRN (21:44)
[2016-10-01 23:40] LABS: CHLORIDE,CL 73 mmol/L (98-110)
[2016-10-01 23:41] LABS: SODIUM,NA 109 mmol/L (136-146)
[2016-10-02] MEDS ORDERED: Potassium Chloride 10% 20 MEQ/15 ML Soln 30 ML UD Cup PO ONE (00:09)
[2016-10-02] MEDS: Desmopressin 4 MCG/1 ML Amp SUBCUT SCH ×3 (00:29→13:01)
[2016-10-02 02:32] LABS: CHLORIDE,CL 75 mmol/L (98-110)
[2016-10-02 02:36] LABS: SODIUM,NA 110 mmol/L (136-146)
[2016-10-02] MEDS: Levothyroxine 150 MCG Tab PO SCH (06:40)
[2016-10-02 07:44] LABS: CHLORIDE,CL 79 mmol/L (98-110)
[2016-10-02 07:51] LABS: SODIUM,NA 112 mmol/L (136-146)
[2016-10-02] MEDS: Folic Acid 50 MG/10 ML MDV SUBCUT SCH (09:05)
[2016-10-02] MEDS: Nicotine 21 MG/24 Hr Patch TRDERM SCH (09:05)
[2016-10-02 12:55] LABS: CHLORIDE,CL 79 mmol/L (98-110)
[2016-10-02 12:58] LABS: SODIUM,NA 112 mmol/L (136-146)
--- NOTE | 2016-10-02 13:34 | PCM.PN ---
- Review of Systems Systems Review Comment:: reports abdominal pain - Patient Data Vitals - most recent: Last Vital Signs Temp 36.3 C 10/02/16 08:00 Pulse 59 L 10/01/16 00:30 Resp 13 10/02/16 13:00 BP 105/63 10/02/16 13:00 Pulse Ox 98 10/02/16 13:00 Weight - most recent: 47.5 kg I&O - last 24 hours: Intake & Output 10/01/16 10/02/16 10/02/16 22:59 06:59 14:59 Intake Total 487 767 Output Total 300 300 Balance 187 467 Lab Results last 24 hrs: Laboratory Results - last 24 hr 10/01/16 10/01/16 10/01/16 Range/Units 14:30 14:30 18:38 WBC (4.0-11.0) K/uL RBC (4.30-5.90) M/uL Hgb (12.0-16.0) g/dL Hct (36.0-46.0) % MCV (80.0-98.0) fL MCH (27.0-32.0) pg MCHC (31.0-37.0) g/dL RDW Std Deviation (28.0-62.0) fl RDW Coeff of Ayleen (11.0-15.0) % Plt Count (150-400) K/uL MPV (7.40-12.00) fL Neut % (Auto) (48.0-80.0) % Lymph % (Auto) (16.0-40.0) % [place] % (Auto) (0.0-15.0) % Eos % (Auto) (0.0-7.0) % Baso % (Auto) (0.0-1.5) % Neut # (Auto) (1.4-5.7) K/uL Lymph # (Auto) (0.6-2.4) K/uL [place] # (Auto) (0.0-0.8) K/uL Eos # (Auto) (0.0-0.7) K/uL Baso # (Auto) (0.0-0.1) K/uL Nucleated RBC % /100WBC Nucleated RBCs # K/uL Lactate 0.9 (0.20-2.00) mmol/L Sodium 113 L* 112 L* (136-146) mmol/L Potassium 3.3 L 2.6 L (3.5-5.1) mmol/L Chloride 72 L 73 L (98-110) mmol/L Carbon Dioxide 30 26 (21-31) mmol/L BUN 12 12 (6.0-23.0) mg/dL Creatinine 0.7 0.7 (0.6-1.5) mg/dL Est Cr Clr Drug Dosing 57.88 57.88 mL/min Estimated GFR (MDRD) > 60.0 > 60.0 ml/min Glucose 100 123 H (60-110) mg/dL Calcium 8.5 L 8.0 L (8.8-10.8) mg/dL Troponin I (0.0-0.29) NG/ML 10/01/16 10/01/16 10/02/16 Range/Units 19:28 22:55 02:05 WBC (4.0-11.0) K/uL RBC (4.30-5.90) M/uL Hgb (12.0-16.0) g/dL Hct (36.0-46.0) % MCV (80.0-98.0) fL MCH (27.0-32.0) pg MCHC (31.0-37.0) g/dL RDW Std Deviation (28.0-62.0) fl RDW Coeff of Ayleen (11.0-15.0) % Plt Count (150-400) K/uL MPV (7.40-12.00) fL Neut % (Auto) (48.0-80.0) % Lymph % (Auto) (16.0-40.0) % [place] % (Auto) (0.0-15.0) % Eos % (Auto) (0.0-7.0) % Baso % (Auto) (0.0-1.5) % Neut # (Auto) (1.4-5.7) K/uL Lymph # (Auto) (0.6-2.4) K/uL [place] # (Auto) (0.0-0.8) K/uL Eos # (Auto) (0.0-0.7) K/uL Baso # (Auto) (0.0-0.1) K/uL Nucleated RBC % /100WBC Nucleated RBCs # K/uL Lactate (0.20-2.00) mmol/L Sodium 109 L* 110 L* (136-146) mmol/L Potassium 2.9 L 4.2 (3.5-5.1) mmol/L Chloride 73 L 75 L (98-110) mmol/L Carbon Dioxide 26 24 (21-31) mmol/L BUN 12 11 (6.0-23.0) mg/dL Creatinine 0.7 0.7 (0.6-1.5) mg/dL Est Cr Clr Drug Dosing 57.88 57.88 mL/min Estimated GFR (MDRD) > 60.0 > 60.0 ml/min Glucose 132 H 84 (60-110) mg/dL Calcium 7.8 L 8.1 L (8.8-10.8) mg/dL Troponin I < 0.10 (0.0-0.29) NG/ML 10/02/16 10/02/16 10/02/16 Range/Units 02:05 07:10 07:10 WBC 11.11 H (4.0-11.0) K/uL RBC 3.89 L (4.30-5.90) M/uL Hgb 12.9 (12.0-16.0) g/dL Hct 35.3 L (36.0-46.0) % MCV 90.7 (80.0-98.0) fL MCH 33.2 H (27.0-32.0) pg MCHC 36.5 (31.0-37.0) g/dL RDW Std Deviation 40.9 (28.0-62.0) fl RDW Coeff of Ayleen 12 (11.0-15.0) % Plt Count 172 (150-400) K/uL MPV 10.10 (7.40-12.00) fL Neut % (Auto) 72.8 (48.0-80.0) % Lymph % (Auto) 16.6 (16.0-40.0) % [place] % (Auto) 10.2 (0.0-15.0) % Eos % (Auto) 0.3 (0.0-7.0) % Baso % (Auto) 0.1 (0.0-1.5) % Neut # (Auto) 8.1 H (1.4-5.7) K/uL Lymph # (Auto) 1.8 (0.6-2.4) K/uL [place] # (Auto) 1.1 H (0.0-0.8) K/uL Eos # (Auto) 0.0 (0.0-0.7) K/uL Baso # (Auto) 0.0 (0.0-0.1) K/uL Nucleated RBC % 0.0 /100WBC Nucleated RBCs # 0 K/uL Lactate (0.20-2.00) mmol/L Sodium 112 L* (136-146) mmol/L Potassium 4.8 (3.5-5.1) mmol/L Chloride 79 L (98-110) mmol/L Carbon Dioxide 26 (21-31) mmol/L BUN 11 (6.0-23.0) mg/dL Creatinine 0.8 (0.6-1.5) mg/dL Est Cr Clr Drug Dosing 54.67 mL/min Estimated GFR (MDRD) > 60.0 ml/min Glucose 89 (60-110) mg/dL Calcium 8.3 L (8.8-10.8) mg/dL Troponin I < 0.10 (0.0-0.29) NG/ML 10/02/16 10/02/16 Range/Units 07:10 12:20 WBC (4.0-11.0) K/uL RBC (4.30-5.90) M/uL Hgb (12.0-16.0) g/dL Hct (36.0-46.0) % MCV (80.0-98.0) fL MCH (27.0-32.0) pg MCHC (31.0-37.0) g/dL RDW Std Deviation (28.0-62.0) fl RDW Coeff of Ayleen (11.0-15.0) % Plt Count (150-400) K/uL MPV (7.40-12.00) fL Neut % (Auto) (48.0-80.0) % Lymph % (Auto) (16.0-40.0) % [place] % (Auto) (0.0-15.0) % Eos % (Auto) (0.0-7.0) % Baso % (Auto) (0.0-1.5) % Neut # (Auto) (1.4-5.7) K/uL Lymph # (Auto) (0.6-2.4) K/uL [place] # (Auto) (0.0-0.8) K/uL Eos # (Auto) (0.0-0.7) K/uL Baso # (Auto) (0.0-0.1) K/uL Nucleated RBC % /100WBC Nucleated RBCs # K/uL Lactate (0.20-2.00) mmol/L Sodium 112 L* (136-146) mmol/L Potassium 4.0 (3.5-5.1) mmol/L Chloride 79 L (98-110) mmol/L Carbon Dioxide 24 (21-31) mmol/L BUN 12 (6.0-23.0) mg/dL Creatinine 0.7 (0.6-1.5) mg/dL Est Cr Clr Drug Dosing 62.48 mL/min Estimated GFR (MDRD) > 60.0 ml/min Glucose 80 (60-110) mg/dL Calcium 8.5 L (8.8-10.8) mg/dL Troponin I < 0.10 (0.0-0.29) NG/ML Jonathan Results last 24 hrs: Microbiology 10/01/16 10:49 Aerobic Blood Culture - Preliminary Blood - Venous NO GROWTH AFTER 1 DAY Anaerobic Blood Culture - Preliminary NO GROWTH AFTER 1 DAY 10/01/16 10:34 Aerobic Blood Culture - Preliminary Blood - Venous - Lab Draw NO GROWTH AFTER 1 DAY Anaerobic Blood Culture - Preliminary NO GROWTH AFTER 1 DAY Med Orders - Current: Current Medications Al Hydroxide/Mg Hydroxide (Mag-Al Plus) 30 ml PO Q4H PRN PRN Reason: Indigestion Last Admin: 10/01/16 20:47 Dose: 30 ml Folic Acid (Folic Acid) 1 mg SUBCUT DAILY [facility] Last Admin: 10/02/16 09:05 Dose: 1 mg Levofloxacin (Levaquin) 750 mg PO Q24H [facility] Last Admin: 10/01/16 14:44 Dose: 750 mg Levothyroxine Sodium (Levothyroxine) 150 mcg PO ACBREAKFAST [facility] Last Admin: 10/02/16 06:40 Dose: 150 mcg Lorazepam (Ativan) 0 mg IVPUSH Q4H PRN; Protocol PRN Reason: Agitation Morphine Sulfate (Morphine) 2 mg IVPUSH Q2H PRN PRN Reason: Pain Last Admin: 10/01/16 21:44 Dose: 2 mg Nicotine (Habitrol) 21 mg TRDERM DAILY [facility] Last Admin: 10/02/16 09:05 Dose: 21 mg Ondansetron HCl (Zofran) 4 mg IVPUSH Q6H PRN PRN Reason: Nausea/Vomiting Last Admin: 10/01/16 21:44 Dose: 4 mg Thiamine HCl (Vitamin B-1) 100 mg PO BEDTIME [facility] Last Admin: 10/01/16 20:07 Dose: 100 mg Discontinued Medications Desmopressin Acetate (Desmopressin) 2 mcg SUBCUT Q6HR [facility] Last Admin: 10/02/16 13:01 Dose: Not Given Sodium Chloride (Normal Saline) 2,000 mls @ 999 mls/hr IV .Bolus ONE Stop: 10/01/16 01:46 Last Admin: 10/01/16 00:34 Dose: Not Given Sodium Chloride (Normal Saline) 1,000 mls @ 200 mls/hr IV .BOLUS ONE Stop: 10/01/16 05:07 Last Admin: 10/01/16 00:34 Dose: 200 mls/hr Potassium Chloride/Dextrose/Sod Cl (D5 Ns With 20 Meq Kcl) 50 mls @ 25 mls/hr IV ASDIRECTED [facility] Sodium Chloride (Normal Saline) 1,000 mls @ 25 mls/hr IV .BOLUS ONE Stop: 10/02/16 17:22 Last Infusion: 10/01/16 02:31 Dose: 25 mls/hr Potassium Chloride/Sodium Chloride (Normal Saline With 40 Meq Kcl) 500 mls @ 125 mls/hr IV ASDIRECTED [facility] Last Infusion: 10/01/16 02:32 Dose: 125 mls/hr Potassium Chloride/Sodium Chloride (Normal Saline With 40 Meq Kcl) 1,000 mls @ 150 mls/hr IV ASDIRECTED [facility] Stop: 10/01/16 09:54 Last Admin: 10/01/16 03:22 Dose: 150 mls/hr Potassium Chloride/Sodium Chloride (1/2 Ns With 20 Meq Kcl) 1,000 mls @ 50 mls/ hr IV ASDIRECTED [facility] Last Admin: 10/01/16 10:50 Dose: 50 mls/hr Dextrose/Water (Dextrose 5% In Water) 1,000 mls @ 100 mls/hr IV ASDIRECTED [facility] Stop: 10/02/16 00:08 Last Infusion: 10/01/16 20:39 Dose: 100 mls/hr Potassium Chloride 40 meq/ (Dextrose/Water) 1,020 mls @ 150 mls/hr IV ASDIRECTED [facility] Last Infusion: 10/02/16 00:24 Dose: 150 mls/hr Levofloxacin (Levaquin) 750 mg PO Q24H [facility] Levothyroxine Sodium (Synthroid) 100 mcg IVPUSH ONETIME ONE Stop: 10/01/16 00:49 Last Admin: 10/01/16 01:51 Dose: 100 mcg Ondansetron HCl (Zofran) 4 mg IVPUSH ONETIME ONE Stop: 10/01/16 00:24 Last Admin: 10/01/16 00:34 Dose: 4 mg Potassium Chloride (Klor-Con M20) 40 meq PO ONETIME ONE Stop: 10/01/16 02:58 Last Admin: 10/01/16 03:07 Dose: 40 meq Potassium Chloride (Klor-Con M20) 40 meq PO ONETIME ONE Stop: 10/01/16 19:36 Last Admin: 10/01/16 20:08 Dose: 40 meq Potassium Chloride (Potassium Chloride) 60 meq PO ONETIME ONE Stop: 10/02/16 00:10 Last Admin: 10/02/16 00:29 Dose: 60 meq Potassium Chloride (Klor-Con M20) 20 meq PO BID [facility] Stop: 10/04/16 09:01 Thiamine HCl (Vitamin B-1) 100 mg IVPUSH ONETIME ONE Stop: 09/30/16 23:47 Last Admin: 10/01/16 00:34 Dose: 100 mg - Exam General: alert, oriented Lungs: Clear to auscultation, Normal respiratory effort Cardiovascular: Regular Rate, Regular Rhythm Abdomen: bowel sounds present, soft, no tenderness, no distension Extremities: no edema Skin: warm, dry, intact Neurological: no new focal deficit - Problem List Review Problem List Initiated/Reviewed/Updated: Yes - My Orders Last 24 Hours: My Active Orders 10/01/16 14:30 Levofloxacin [Levaquin] 750 mg PO Q24H 10/01/16 19:17 EKG 12 Lead [EKG Documentation Completion] [RC] STAT 10/01/16 21:00 Thiamine [Vitamin B-1] 100 mg PO BEDTIME 10/02/16 07:30 Levothyroxine 150 mcg PO ACBREAKFAST 10/02/16 Lunch Regular Diet [DIET] 10/03/16 05:11 CBC WITH AUTO DIFF [HEME] AM 10/04/16 05:11 CBC WITH AUTO DIFF [HEME] AM - Plan Plan:: 61 yo female who presents with altered mental status. Patient is alert, cooperative but lethargic. She has severe hyponatremia with history of alcohol abuse. Difficult to assess how far off from baseline her mental status is. Hyponatremia: sodium is 112. IVF discontinued. eICU following ETOH abuse: Thiamin and folic acid, CIWA protocol with prn ativan Hypothyrodsim: resume home dose of thyroid replacement Leukocytosis: unexplained. Levaquin started empirically yesterday. blood and urine cultures pending.
[2016-10-02] MEDS: Pantoprazole 40 MG Tab.CR PO SCH (13:51)
[2016-10-02] MEDS: Levofloxacin 250 MG Tab PO SCH (13:51)
[2016-10-02 16:35] LABS: CHLORIDE,CL 79 mmol/L (98-110)
[2016-10-02 16:39] LABS: SODIUM,NA 115 mmol/L (136-146)
[2016-10-02] MEDS: Thiamine 100 MG Tab PO SCH (20:56)
[2016-10-02] MEDS ORDERED: Potassium Chloride 20 MEQ Tab.ER PO SCH (21:00)
[2016-10-02 21:07] LABS: CHLORIDE,CL 82 mmol/L (98-110)
[2016-10-02 21:13] LABS: SODIUM,NA 115 mmol/L (136-146)
[2016-10-02] MEDS: Morphine 2 MG/ML Syringe IVPUSH PRN (21:28)
[2016-10-02] MEDS ORDERED: Dextrose 5% in Water 1,000 ML IV SCH (22:00)
[2016-10-03 01:00] LABS: CHLORIDE,CL 83 mmol/L (98-110)
[2016-10-03 01:02] LABS: SODIUM,NA 114 mmol/L (136-146)
[2016-10-03] MEDS: Morphine 2 MG/ML Syringe IVPUSH PRN (03:50)
[2016-10-03 04:42] LABS: CHLORIDE,CL 84 mmol/L (98-110)
[2016-10-03 04:43] LABS: SODIUM,NA 114 mmol/L (136-146)
[2016-10-03] MEDS: Levothyroxine 150 MCG Tab PO SCH (06:40)
[2016-10-03 08:34] LABS: CHLORIDE,CL 82 mmol/L (98-110)
[2016-10-03 08:36] LABS: SODIUM,NA 116 mmol/L (136-146)
[2016-10-03] MEDS: Pantoprazole 40 MG Tab.CR PO SCH (08:54)
[2016-10-03] MEDS: Nicotine 21 MG/24 Hr Patch TRDERM SCH (08:54)
[2016-10-03] MEDS: Folic Acid 50 MG/10 ML MDV SUBCUT SCH (08:54)
--- NOTE | 2016-10-03 09:47 | PCM.PN ---
- Review of Systems Systems Review Comment:: denies any pain, no new complaints - Patient Data Vitals - most recent: Last Vital Signs Temp 36.3 C 10/03/16 09:00 Pulse 59 L 10/01/16 00:30 Resp 11 L 10/03/16 09:00 BP 112/49 L 10/03/16 09:00 Pulse Ox 96 10/03/16 09:00 Weight - most recent: 47.9 kg I&O - last 24 hours: Intake & Output 10/02/16 10/03/16 10/03/16 22:59 06:59 14:59 Intake Total 100 253 Output Total 900 300 Balance -800 -47 Lab Results last 24 hrs: Laboratory Results - last 24 hr 10/02/16 10/02/16 10/02/16 Range/Units 12:20 12:20 16:01 WBC (4.0-11.0) K/uL RBC (4.30-5.90) M/uL Hgb (12.0-16.0) g/dL Hct (36.0-46.0) % MCV (80.0-98.0) fL MCH (27.0-32.0) pg MCHC (31.0-37.0) g/dL RDW Std Deviation (28.0-62.0) fl RDW Coeff of Ayleen (11.0-15.0) % Plt Count (150-400) K/uL MPV (7.40-12.00) fL Neut % (Auto) (48.0-80.0) % Lymph % (Auto) (16.0-40.0) % [place] % (Auto) (0.0-15.0) % Eos % (Auto) (0.0-7.0) % Baso % (Auto) (0.0-1.5) % Neut # (Auto) (1.4-5.7) K/uL Lymph # (Auto) (0.6-2.4) K/uL [place] # (Auto) (0.0-0.8) K/uL Eos # (Auto) (0.0-0.7) K/uL Baso # (Auto) (0.0-0.1) K/uL Nucleated RBC % /100WBC Nucleated RBCs # K/uL Sodium 112 L* 115 L* (136-146) mmol/L Potassium 4.0 4.1 (3.5-5.1) mmol/L Chloride 79 L 79 L (98-110) mmol/L Carbon Dioxide 24 26 (21-31) mmol/L BUN 12 15 (6.0-23.0) mg/dL Creatinine 0.7 0.9 (0.6-1.5) mg/dL Est Cr Clr Drug Dosing 62.48 48.60 mL/min Estimated GFR (MDRD) > 60.0 > 60.0 ml/min Glucose 80 82 (60-110) mg/dL Calcium 8.5 L 8.4 L (8.8-10.8) mg/dL Total Bilirubin 0.5 (0.1-1.5) mg/dL Direct Bilirubin 0.3 (0.0-0.5) mg/dL Indirect Bilirubin 0.2 (0.0-1.0) mg/dL AST 31 (5-40) IU/L ALT 21 (8-54) IU/L Alkaline Phosphatase 65 (40-150) Total Protein 5.9 L (6.0-8.0) g/dL Albumin 3.8 (3.4-4.8) g/dL Globulin 2.1 (2.0-3.5) g/dL Albumin/Globulin Ratio 1.8 (1.3-2.8) Amylase 66 (10-90) U/L Lipase 60 (7-80) U/L 10/02/16 10/03/16 10/03/16 Range/Units 19:56 00:20 04:10 WBC 12.32 H (4.0-11.0) K/uL RBC 3.64 L (4.30-5.90) M/uL Hgb 12.0 (12.0-16.0) g/dL Hct 33.4 L (36.0-46.0) % MCV 91.8 (80.0-98.0) fL MCH 33.0 H (27.0-32.0) pg MCHC 35.9 (31.0-37.0) g/dL RDW Std Deviation 42.3 (28.0-62.0) fl RDW Coeff of Ayleen 13 (11.0-15.0) % Plt Count 201 (150-400) K/uL MPV 10.30 (7.40-12.00) fL Neut % (Auto) 70.3 (48.0-80.0) % Lymph % (Auto) 18.3 (16.0-40.0) % [place] % (Auto) 10.2 (0.0-15.0) % Eos % (Auto) 1.1 (0.0-7.0) % Baso % (Auto) 0.1 (0.0-1.5) % Neut # (Auto) 8.7 H (1.4-5.7) K/uL Lymph # (Auto) 2.3 (0.6-2.4) K/uL [place] # (Auto) 1.3 H (0.0-0.8) K/uL Eos # (Auto) 0.1 (0.0-0.7) K/uL Baso # (Auto) 0.0 (0.0-0.1) K/uL Nucleated RBC % 0.0 /100WBC Nucleated RBCs # 0 K/uL Sodium 115 L* 114 L* (136-146) mmol/L Potassium 4.2 4.0 (3.5-5.1) mmol/L Chloride 82 L 83 L (98-110) mmol/L Carbon Dioxide 23 22 (21-31) mmol/L BUN 16 14 (6.0-23.0) mg/dL Creatinine 0.8 0.7 (0.6-1.5) mg/dL Est Cr Clr Drug Dosing 54.67 62.48 mL/min Estimated GFR (MDRD) > 60.0 > 60.0 ml/min Glucose 82 92 (60-110) mg/dL Calcium 8.6 L 8.1 L (8.8-10.8) mg/dL Total Bilirubin (0.1-1.5) mg/dL Direct Bilirubin (0.0-0.5) mg/dL Indirect Bilirubin (0.0-1.0) mg/dL AST (5-40) IU/L ALT (8-54) IU/L Alkaline Phosphatase (40-150) Total Protein (6.0-8.0) g/dL Albumin (3.4-4.8) g/dL Globulin (2.0-3.5) g/dL Albumin/Globulin Ratio (1.3-2.8) Amylase (10-90) U/L Lipase (7-80) U/L 10/03/16 10/03/16 Range/Units 04:10 08:05 WBC (4.0-11.0) K/uL RBC (4.30-5.90) M/uL Hgb (12.0-16.0) g/dL Hct (36.0-46.0) % MCV (80.0-98.0) fL MCH (27.0-32.0) pg MCHC (31.0-37.0) g/dL RDW Std Deviation (28.0-62.0) fl RDW Coeff of Ayleen (11.0-15.0) % Plt Count (150-400) K/uL MPV (7.40-12.00) fL Neut % (Auto) (48.0-80.0) % Lymph % (Auto) (16.0-40.0) % [place] % (Auto) (0.0-15.0) % Eos % (Auto) (0.0-7.0) % Baso % (Auto) (0.0-1.5) % Neut # (Auto) (1.4-5.7) K/uL Lymph # (Auto) (0.6-2.4) K/uL [place] # (Auto) (0.0-0.8) K/uL Eos # (Auto) (0.0-0.7) K/uL Baso # (Auto) (0.0-0.1) K/uL Nucleated RBC % /100WBC Nucleated RBCs # K/uL Sodium 114 L* 116 L* (136-146) mmol/L Potassium 4.0 3.7 (3.5-5.1) mmol/L Chloride 84 L 82 L (98-110) mmol/L Carbon Dioxide 21 25 (21-31) mmol/L BUN 14 13 (6.0-23.0) mg/dL Creatinine 0.8 0.7 (0.6-1.5) mg/dL Est Cr Clr Drug Dosing 54.67 63.01 mL/min Estimated GFR (MDRD) > 60.0 > 60.0 ml/min Glucose 93 103 (60-110) mg/dL Calcium 8.3 L 8.4 L (8.8-10.8) mg/dL Total Bilirubin (0.1-1.5) mg/dL Direct Bilirubin (0.0-0.5) mg/dL Indirect Bilirubin (0.0-1.0) mg/dL AST (5-40) IU/L ALT (8-54) IU/L Alkaline Phosphatase (40-150) Total Protein (6.0-8.0) g/dL Albumin (3.4-4.8) g/dL Globulin (2.0-3.5) g/dL Albumin/Globulin Ratio (1.3-2.8) Amylase (10-90) U/L Lipase (7-80) U/L Jonathan Results last 24 hrs: Microbiology 10/01/16 10:49 Aerobic Blood Culture - Preliminary Blood - Venous NO GROWTH AFTER 1 DAY Anaerobic Blood Culture - Preliminary NO GROWTH AFTER 1 DAY 10/01/16 10:34 Aerobic Blood Culture - Preliminary Blood - Venous - Lab Draw NO GROWTH AFTER 1 DAY Anaerobic Blood Culture - Preliminary NO GROWTH AFTER 1 DAY Med Orders - Current: Current Medications Al Hydroxide/Mg Hydroxide (Mag-Al Plus) 30 ml PO Q4H PRN PRN Reason: Indigestion Last Admin: 10/01/16 20:47 Dose: 30 ml Folic Acid (Folic Acid) 1 mg SUBCUT DAILY [facility] Last Admin: 10/03/16 08:54 Dose: 1 mg Levofloxacin (Levaquin) 750 mg PO Q24H [facility] Last Admin: 10/02/16 13:51 Dose: 750 mg Levothyroxine Sodium (Levothyroxine) 150 mcg PO ACBREAKFAST [facility] Last Admin: 10/03/16 06:40 Dose: 150 mcg Lorazepam (Ativan) 0 mg IVPUSH Q4H PRN; Protocol PRN Reason: Agitation Morphine Sulfate (Morphine) 2 mg IVPUSH Q2H PRN PRN Reason: Pain Last Admin: 10/03/16 03:50 Dose: 2 mg Nicotine (Habitrol) 21 mg TRDERM DAILY [facility] Last Admin: 10/03/16 08:54 Dose: 21 mg Ondansetron HCl (Zofran) 4 mg IVPUSH Q6H PRN PRN Reason: Nausea/Vomiting Last Admin: 10/01/16 21:44 Dose: 4 mg Pantoprazole Sodium (Protonix) 40 mg PO DAILY [facility] Last Admin: 10/03/16 08:54 Dose: 40 mg Thiamine HCl (Vitamin B-1) 100 mg PO BEDTIME [facility] Last Admin: 10/02/16 20:56 Dose: 100 mg Discontinued Medications Desmopressin Acetate (Desmopressin) 2 mcg SUBCUT Q6HR [facility] Last Admin: 10/02/16 13:01 Dose: Not Given Sodium Chloride (Normal Saline) 2,000 mls @ 999 mls/hr IV .Bolus ONE Stop: 10/01/16 01:46 Last Admin: 10/01/16 00:34 Dose: Not Given Sodium Chloride (Normal Saline) 1,000 mls @ 200 mls/hr IV .BOLUS ONE Stop: 10/01/16 05:07 Last Admin: 10/01/16 00:34 Dose: 200 mls/hr Potassium Chloride/Dextrose/Sod Cl (D5 Ns With 20 Meq Kcl) 50 mls @ 25 mls/hr IV ASDIRECTED [facility] Sodium Chloride (Normal Saline) 1,000 mls @ 25 mls/hr IV .BOLUS ONE Stop: 10/02/16 17:22 Last Infusion: 10/01/16 02:31 Dose: 25 mls/hr Potassium Chloride/Sodium Chloride (Normal Saline With 40 Meq Kcl) 500 mls @ 125 mls/hr IV ASDIRECTED [facility] Last Infusion: 10/01/16 02:32 Dose: 125 mls/hr Potassium Chloride/Sodium Chloride (Normal Saline With 40 Meq Kcl) 1,000 mls @ 150 mls/hr IV ASDIRECTED [facility] Stop: 10/01/16 09:54 Last Admin: 10/01/16 03:22 Dose: 150 mls/hr Potassium Chloride/Sodium Chloride (1/2 Ns With 20 Meq Kcl) 1,000 mls @ 50 mls/ hr IV ASDIRECTED [facility] Last Admin: 10/01/16 10:50 Dose: 50 mls/hr Dextrose/Water (Dextrose 5% In Water) 1,000 mls @ 100 mls/hr IV ASDIRECTED [facility] Stop: 10/02/16 00:08 Last Infusion: 10/01/16 20:39 Dose: 100 mls/hr Potassium Chloride 40 meq/ (Dextrose/Water) 1,020 mls @ 150 mls/hr IV ASDIRECTED [facility] Last Infusion: 10/02/16 00:24 Dose: 150 mls/hr Dextrose/Water (Dextrose 5% In Water) 1,000 mls @ 50 mls/hr IV ASDIRECTED [facility] Stop: 10/03/16 01:09 Last Infusion: 10/02/16 22:28 Dose: 0 mls/hr Levofloxacin (Levaquin) 750 mg PO Q24H [facility] Levothyroxine Sodium (Synthroid) 100 mcg IVPUSH ONETIME ONE Stop: 10/01/16 00:49 Last Admin: 10/01/16 01:51 Dose: 100 mcg Ondansetron HCl (Zofran) 4 mg IVPUSH ONETIME ONE Stop: 10/01/16 00:24 Last Admin: 10/01/16 00:34 Dose: 4 mg Potassium Chloride (Klor-Con M20) 40 meq PO ONETIME ONE Stop: 10/01/16 02:58 Last Admin: 10/01/16 03:07 Dose: 40 meq Potassium Chloride (Klor-Con M20) 40 meq PO ONETIME ONE Stop: 10/01/16 19:36 Last Admin: 10/01/16 20:08 Dose: 40 meq Potassium Chloride (Potassium Chloride) 60 meq PO ONETIME ONE Stop: 10/02/16 00:10 Last Admin: 10/02/16 00:29 Dose: 60 meq Potassium Chloride (Klor-Con M20) 20 meq PO BID [facility] Stop: 10/04/16 09:01 Thiamine HCl (Vitamin B-1) 100 mg IVPUSH ONETIME ONE Stop: 09/30/16 23:47 Last Admin: 10/01/16 00:34 Dose: 100 mg - Exam General: alert, oriented, cooperative Neck: supple Lungs: Clear to auscultation, Normal respiratory effort Cardiovascular: Regular Rate, Regular Rhythm Abdomen: bowel sounds present, soft, no tenderness, no distension Extremities: no edema Skin: warm, dry, intact Neurological: no new focal deficit - Problem List Review Problem List Initiated/Reviewed/Updated: Yes - My Orders Last 24 Hours: My Active Orders 10/02/16 13:26 Code Status [Resuscitation Status] Routine 10/02/16 13:30 Pantoprazole [ProTONIX] 40 mg PO DAILY 10/02/16 Lunch Regular Diet [DIET] 10/04/16 05:11 CBC WITH AUTO DIFF [HEME] AM - Plan Plan:: 61 yo female who presents with altered mental status. Patient is alert, cooperative but lethargic. She has severe hyponatremia with history of alcohol abuse. Difficult to assess how far off from baseline her mental status is. Hyponatremia: sodium is 116. checking sodium q4hs. eICU following ETOH abuse: Thiamin and folic acid, CIWA protocol with prn ativan Hypothyrodsim: home dose of thyroid replacement Leukocytosis: unexplained. Levaquin started empirically yesterday. blood cultures pending. if cultures still now growth tomorrow will d/c
[2016-10-03 12:41] LABS: CHLORIDE,CL 85 mmol/L (98-110)
[2016-10-03 12:44] LABS: SODIUM,NA 115 mmol/L (136-146)
[2016-10-03 16:31] LABS: CHLORIDE,CL 86 mmol/L (98-110)
[2016-10-03 16:34] LABS: SODIUM,NA 119 mmol/L (136-146)
[2016-10-03] MEDS: Thiamine 100 MG Tab PO SCH (20:03)
[2016-10-03] MEDS: Aluminum Hydroxide/Magnesium Hydroxide/Simethicone Susp 30 ML Cup PO PRN (20:03)
[2016-10-03 20:28] LABS: CHLORIDE,CL 90 mmol/L (98-110)
[2016-10-03 20:30] LABS: SODIUM,NA 120 mmol/L (136-146)
[2016-10-04 01:01] LABS: CHLORIDE,CL 91 mmol/L (98-110); SODIUM,NA 123 mmol/L (136-146)
[2016-10-04 04:44] LABS: CHLORIDE,CL 94 mmol/L (98-110); SODIUM,NA 124 mmol/L (136-146)
[2016-10-04] MEDS: Levothyroxine 150 MCG Tab PO SCH (06:31)
[2016-10-04] MEDS: Pantoprazole 40 MG Tab.CR PO SCH (08:39)
[2016-10-04] MEDS: Nicotine 21 MG/24 Hr Patch TRDERM SCH (08:40)
[2016-10-04] MEDS: Folic Acid 50 MG/10 ML MDV SUBCUT SCH (09:26)
[2016-10-04] MEDS: Ondansetron 4 MG/2 ML SDV IVPUSH PRN ×2 (10:46→20:14)
--- NOTE | 2016-10-04 12:19 | PCM.PN ---
- Review of Systems Systems Review Comment:: feeling better - Patient Data Vitals - most recent: Last Vital Signs Temp 36.8 C 10/04/16 12:00 Pulse 65 10/04/16 01:00 Resp 14 10/04/16 12:00 BP 120/67 10/04/16 12:00 Pulse Ox 99 10/04/16 12:00 Weight - most recent: 47.3 kg I&O - last 24 hours: Intake & Output 10/03/16 10/04/16 10/04/16 22:59 06:59 14:59 Intake Total 200 550 Output Total 850 1750 Balance -650 -1200 Lab Results last 24 hrs: Laboratory Results - last 24 hr 10/03/16 10/03/16 10/03/16 Range/Units 12:00 15:54 20:05 WBC (4.0-11.0) K/uL RBC (4.30-5.90) M/uL Hgb (12.0-16.0) g/dL Hct (36.0-46.0) % MCV (80.0-98.0) fL MCH (27.0-32.0) pg MCHC (31.0-37.0) g/dL RDW Std Deviation (28.0-62.0) fl RDW Coeff of Ayleen (11.0-15.0) % Plt Count (150-400) K/uL MPV (7.40-12.00) fL Neut % (Auto) (48.0-80.0) % Lymph % (Auto) (16.0-40.0) % Sunflower % (Auto) (0.0-15.0) % Eos % (Auto) (0.0-7.0) % Baso % (Auto) (0.0-1.5) % Neut # (Auto) (1.4-5.7) K/uL Lymph # (Auto) (0.6-2.4) K/uL Sunflower # (Auto) (0.0-0.8) K/uL Eos # (Auto) (0.0-0.7) K/uL Baso # (Auto) (0.0-0.1) K/uL Nucleated RBC % /100WBC Nucleated RBCs # K/uL Sodium 115 L* 119 L* 120 L (136-146) mmol/L Potassium 4.1 4.1 4.0 (3.5-5.1) mmol/L Chloride 85 L 86 L 90 L (98-110) mmol/L Carbon Dioxide 21 24 21 (21-31) mmol/L BUN 13 12 13 (6.0-23.0) mg/dL Creatinine 0.7 0.8 0.7 (0.6-1.5) mg/dL Est Cr Clr Drug Dosing 63.01 55.13 63.01 mL/min Estimated GFR (MDRD) > 60.0 > 60.0 > 60.0 ml/min Glucose 94 110 121 H (60-110) mg/dL Calcium 8.5 L 8.9 8.7 L (8.8-10.8) mg/dL 10/04/16 10/04/16 10/04/16 Range/Units 00:15 04:20 04:20 WBC 13.56 H (4.0-11.0) K/uL RBC 3.93 L (4.30-5.90) M/uL Hgb 12.9 (12.0-16.0) g/dL Hct 36.5 (36.0-46.0) % MCV 92.9 (80.0-98.0) fL MCH 32.8 H (27.0-32.0) pg MCHC 35.3 (31.0-37.0) g/dL RDW Std Deviation 43.2 (28.0-62.0) fl RDW Coeff of Ayleen 13 (11.0-15.0) % Plt Count 221 (150-400) K/uL MPV 9.90 (7.40-12.00) fL Neut % (Auto) 73.3 (48.0-80.0) % Lymph % (Auto) 16.7 (16.0-40.0) % Sunflower % (Auto) 7.7 (0.0-15.0) % Eos % (Auto) 2.1 (0.0-7.0) % Baso % (Auto) 0.2 (0.0-1.5) % Neut # (Auto) 9.9 H (1.4-5.7) K/uL Lymph # (Auto) 2.3 (0.6-2.4) K/uL Sunflower # (Auto) 1.0 H (0.0-0.8) K/uL Eos # (Auto) 0.3 (0.0-0.7) K/uL Baso # (Auto) 0.0 (0.0-0.1) K/uL Nucleated RBC % 0.0 /100WBC Nucleated RBCs # 0 K/uL Sodium 123 L 124 L (136-146) mmol/L Potassium 3.8 4.0 (3.5-5.1) mmol/L Chloride 91 L 94 L (98-110) mmol/L Carbon Dioxide 23 22 (21-31) mmol/L BUN 13 13 (6.0-23.0) mg/dL Creatinine 0.7 0.7 (0.6-1.5) mg/dL Est Cr Clr Drug Dosing 63.01 63.01 mL/min Estimated GFR (MDRD) > 60.0 > 60.0 ml/min Glucose 105 124 H (60-110) mg/dL Calcium 8.5 L 8.6 L (8.8-10.8) mg/dL Jonathan Results last 24 hrs: Microbiology 10/01/16 10:49 Aerobic Blood Culture - Preliminary Blood - Venous NO GROWTH AFTER 3 DAYS Anaerobic Blood Culture - Preliminary NO GROWTH AFTER 3 DAYS 10/01/16 10:34 Aerobic Blood Culture - Preliminary Blood - Venous - Lab Draw NO GROWTH AFTER 3 DAYS Anaerobic Blood Culture - Preliminary NO GROWTH AFTER 3 DAYS Med Orders - Current: Current Medications Acetaminophen (Tylenol) 650 mg PO Q6H PRN PRN Reason: Pain Al Hydroxide/Mg Hydroxide (Mag-Al Plus) 30 ml PO Q4H PRN PRN Reason: Indigestion Last Admin: 10/03/16 20:03 Dose: 30 ml Folic Acid (Folic Acid) 1 mg SUBCUT DAILY [facility] Last Admin: 10/04/16 09:26 Dose: 1 mg Levothyroxine Sodium (Levothyroxine) 150 mcg PO ACBREAKFAST [facility] Last Admin: 10/04/16 06:31 Dose: 150 mcg Lorazepam (Ativan) 0 mg IVPUSH Q4H PRN; Protocol PRN Reason: Agitation Morphine Sulfate (Morphine) 2 mg IVPUSH Q2H PRN PRN Reason: Pain Last Admin: 10/03/16 03:50 Dose: 2 mg Nicotine (Habitrol) 21 mg TRDERM DAILY [facility] Last Admin: 10/04/16 08:40 Dose: 21 mg Ondansetron HCl (Zofran) 4 mg IVPUSH Q6H PRN PRN Reason: Nausea/Vomiting Last Admin: 10/04/16 10:46 Dose: 4 mg Pantoprazole Sodium (Protonix) 40 mg PO DAILY [facility] Last Admin: 10/04/16 08:39 Dose: 40 mg Thiamine HCl (Vitamin B-1) 100 mg PO BEDTIME [facility] Last Admin: 10/03/16 20:03 Dose: 100 mg Discontinued Medications Desmopressin Acetate (Desmopressin) 2 mcg SUBCUT Q6HR [facility] Last Admin: 10/02/16 13:01 Dose: Not Given Sodium Chloride (Normal Saline) 2,000 mls @ 999 mls/hr IV .Bolus ONE Stop: 10/01/16 01:46 Last Admin: 10/01/16 00:34 Dose: Not Given Sodium Chloride (Normal Saline) 1,000 mls @ 200 mls/hr IV .BOLUS ONE Stop: 10/01/16 05:07 Last Admin: 10/01/16 00:34 Dose: 200 mls/hr Potassium Chloride/Dextrose/Sod Cl (D5 Ns With 20 Meq Kcl) 50 mls @ 25 mls/hr IV ASDIRECTED [facility] Sodium Chloride (Normal Saline) 1,000 mls @ 25 mls/hr IV .BOLUS ONE Stop: 10/02/16 17:22 Last Infusion: 10/01/16 02:31 Dose: 25 mls/hr Potassium Chloride/Sodium Chloride (Normal Saline With 40 Meq Kcl) 500 mls @ 125 mls/hr IV ASDIRECTED [facility] Last Infusion: 10/01/16 02:32 Dose: 125 mls/hr Potassium Chloride/Sodium Chloride (Normal Saline With 40 Meq Kcl) 1,000 mls @ 150 mls/hr IV ASDIRECTED [facility] Stop: 10/01/16 09:54 Last Admin: 10/01/16 03:22 Dose: 150 mls/hr Potassium Chloride/Sodium Chloride (1/2 Ns With 20 Meq Kcl) 1,000 mls @ 50 mls/ hr IV ASDIRECTED [facility] Last Admin: 10/01/16 10:50 Dose: 50 mls/hr Dextrose/Water (Dextrose 5% In Water) 1,000 mls @ 100 mls/hr IV ASDIRECTED [facility] Stop: 10/02/16 00:08 Last Infusion: 10/01/16 20:39 Dose: 100 mls/hr Potassium Chloride 40 meq/ (Dextrose/Water) 1,020 mls @ 150 mls/hr IV ASDIRECTED [facility] Last Infusion: 10/02/16 00:24 Dose: 150 mls/hr Dextrose/Water (Dextrose 5% In Water) 1,000 mls @ 50 mls/hr IV ASDIRECTED [facility] Stop: 10/03/16 01:09 Last Infusion: 10/02/16 22:28 Dose: 0 mls/hr Levofloxacin (Levaquin) 750 mg PO Q24H [facility] Levofloxacin (Levaquin) 750 mg PO Q24H [facility] Last Admin: 10/02/16 13:51 Dose: 750 mg Levothyroxine Sodium (Synthroid) 100 mcg IVPUSH ONETIME ONE Stop: 10/01/16 00:49 Last Admin: 10/01/16 01:51 Dose: 100 mcg Ondansetron HCl (Zofran) 4 mg IVPUSH ONETIME ONE Stop: 10/01/16 00:24 Last Admin: 10/01/16 00:34 Dose: 4 mg Potassium Chloride (Klor-Con M20) 40 meq PO ONETIME ONE Stop: 10/01/16 02:58 Last Admin: 10/01/16 03:07 Dose: 40 meq Potassium Chloride (Klor-Con M20) 40 meq PO ONETIME ONE Stop: 10/01/16 19:36 Last Admin: 10/01/16 20:08 Dose: 40 meq Potassium Chloride (Potassium Chloride) 60 meq PO ONETIME ONE Stop: 10/02/16 00:10 Last Admin: 10/02/16 00:29 Dose: 60 meq Potassium Chloride (Klor-Con M20) 20 meq PO BID [facility] Stop: 10/04/16 09:01 Thiamine HCl (Vitamin B-1) 100 mg IVPUSH ONETIME ONE Stop: 09/30/16 23:47 Last Admin: 10/01/16 00:34 Dose: 100 mg - Exam General: alert, cooperative Lungs: Clear to auscultation, Normal respiratory effort Cardiovascular: Regular Rate, Regular Rhythm Abdomen: bowel sounds present, soft, no tenderness, no distension Skin: warm, dry, intact Neurological: no new focal deficit - Problem List Review Problem List Initiated/Reviewed/Updated: Yes - Plan Plan:: 61 yo female who admitted with hyponatremia Hyponatremia: sodium is 124. eICU following ETOH abuse: Thiamin and folic acid, CIWA protocol with prn ativan Hypothyrodsim: home dose of thyroid replacement
[2016-10-04 12:53] LABS: CHLORIDE,CL 91 mmol/L (98-110); SODIUM,NA 125 mmol/L (136-146)
[2016-10-04] MEDS: Acetaminophen 325 MG Tab PO PRN (18:24)
[2016-10-04] MEDS: Thiamine 100 MG Tab PO SCH (20:14)
[2016-10-04 20:39] LABS: CHLORIDE,CL 92 mmol/L (98-110); SODIUM,NA 126 mmol/L (136-146)
[2016-10-05] MEDS ORDERED: Benzocaine/Cetylpyridinium/Menthol Lozenge MUCMEM PRN (03:32)
[2016-10-05 05:24] LABS: CHLORIDE,CL 97 mmol/L (98-110); SODIUM,NA 128 mmol/L (136-146)
[2016-10-05] MEDS: Levothyroxine 150 MCG Tab PO SCH (06:52)
[2016-10-05] MEDS: Pantoprazole 40 MG Tab.CR PO SCH (08:16)
[2016-10-05] MEDS: Folic Acid 50 MG/10 ML MDV SUBCUT SCH (08:16)
[2016-10-05] MEDS: Nicotine 21 MG/24 Hr Patch TRDERM SCH (08:17)
[2016-10-05] MEDS: Ondansetron 4 MG/2 ML SDV IVPUSH PRN (08:17)
--- NOTE | 2016-10-05 09:34 | PCM.PN ---
- General Info Date of Service: 10/05/16 Admission Dx/Problem (Free Text): Hyponatremia Subjective Update: Feeling nauseated this am. No vomiting. Has been up moving but feels week. Ate breakfast this morning. No chest pain, sob, palpitations. Functional Status: Reports: pain controlled, tolerating diet, ambulating - Review of Systems General: Reports: Weakness, Fatigue. Denies: Fever HEENT: Denies: dysphasia Pulmonary: Denies: shortness of breath, pleuritic chest pain, wheezing Cardiovascular: Denies: Chest Pain, Palpitations, Edema Gastrointestinal: Reports: Nausea. Denies: Abdominal pain, Constipation, Diarrhea, Vomiting Genitourinary: Denies: dysuria, hematuria Musculoskeletal: Denies: neck pain, leg pain Skin: Denies: cyanosis Neurological: Denies: Confusion Psychiatric: Denies: confusion - Patient Data Vitals - most recent: Last Vital Signs Temp 36.4 C 10/05/16 08:45 Pulse 66 10/05/16 08:45 Resp 17 10/05/16 08:45 BP 101/60 10/05/16 08:45 Pulse Ox 99 10/05/16 08:45 Weight - most recent: 47.5 kg I&O - last 24 hours: Intake & Output 10/04/16 10/05/16 10/05/16 22:59 06:59 14:59 Intake Total 800 200 Output Total 600 1350 Balance 200 -1150 Lab Results last 24 hrs: Laboratory Results - last 24 hr 10/01/16 10/04/16 10/04/16 Range/Units 02:20 12:15 20:12 WBC (4.0-11.0) K/uL RBC (4.30-5.90) M/uL Hgb (12.0-16.0) g/dL Hct (36.0-46.0) % MCV (80.0-98.0) fL MCH (27.0-32.0) pg MCHC (31.0-37.0) g/dL RDW Std Deviation (28.0-62.0) fl RDW Coeff of Ayleen (11.0-15.0) % Plt Count (150-400) K/uL MPV (7.40-12.00) fL Add Manual Diff Neutrophils % (Manual) (48.0-80.0) % Lymphocytes % (Manual) (16.0-40.0) % Monocytes % (Manual) (0.0-15.0) % Eosinophils % (Manual) (0.0-7.0) % Nucleated RBC % /100WBC Absolute Seg Neuts Lymphocytes # (Manual) Monocytes # (Manual) Eosinophils # (Manual) Nucleated RBCs # K/uL Sodium 125 L 126 L (136-146) mmol/L Potassium 4.8 4.2 (3.5-5.1) mmol/L Chloride 91 L 92 L (98-110) mmol/L Carbon Dioxide 24 23 (21-31) mmol/L BUN 14 18 (6.0-23.0) mg/dL Creatinine 0.7 0.7 (0.6-1.5) mg/dL Est Cr Clr Drug Dosing 62.22 62.22 mL/min Estimated GFR (MDRD) > 60.0 > 60.0 ml/min Glucose 122 H 90 (60-110) mg/dL Calcium 8.8 8.6 L (8.8-10.8) mg/dL Magnesium 1.7 (1.5-2.3) mEq/L Free T4 1.10 (0.7-1.48) ng/dL Thyroxine (T4) 3.31 L (4.87-11.72) ug/dL 10/05/16 10/05/16 Range/Units 04:50 04:50 WBC 10.90 (4.0-11.0) K/uL RBC 3.54 L (4.30-5.90) M/uL Hgb 12.0 (12.0-16.0) g/dL Hct 33.4 L (36.0-46.0) % MCV 94.4 (80.0-98.0) fL MCH 33.9 H (27.0-32.0) pg MCHC 35.9 (31.0-37.0) g/dL RDW Std Deviation 45.2 (28.0-62.0) fl RDW Coeff of Ayleen 13 (11.0-15.0) % Plt Count 229 (150-400) K/uL MPV 9.80 (7.40-12.00) fL Add Manual Diff YES Neutrophils % (Manual) 69 (48.0-80.0) % Lymphocytes % (Manual) 26 (16.0-40.0) % Monocytes % (Manual) 4 (0.0-15.0) % Eosinophils % (Manual) 1 (0.0-7.0) % Nucleated RBC % 0.0 /100WBC Absolute Seg Neuts 7.5 Lymphocytes # (Manual) 2.8 Monocytes # (Manual) 0.4 Eosinophils # (Manual) 0.1 Nucleated RBCs # 0 K/uL Sodium 128 L (136-146) mmol/L Potassium 4.2 (3.5-5.1) mmol/L Chloride 97 L (98-110) mmol/L Carbon Dioxide 23 (21-31) mmol/L BUN 15 (6.0-23.0) mg/dL Creatinine 0.7 (0.6-1.5) mg/dL Est Cr Clr Drug Dosing 62.48 mL/min Estimated GFR (MDRD) > 60.0 ml/min Glucose 98 (60-110) mg/dL Calcium 8.2 L (8.8-10.8) mg/dL Magnesium (1.5-2.3) mEq/L Free T4 (0.7-1.48) ng/dL Thyroxine (T4) (4.87-11.72) ug/dL Jonathan Results last 24 hrs: Microbiology 10/01/16 10:49 Aerobic Blood Culture - Preliminary Blood - Venous NO GROWTH AFTER 3 DAYS Anaerobic Blood Culture - Preliminary NO GROWTH AFTER 3 DAYS 10/01/16 10:34 Aerobic Blood Culture - Preliminary Blood - Venous - Lab Draw NO GROWTH AFTER 3 DAYS Anaerobic Blood Culture - Preliminary NO GROWTH AFTER 3 DAYS Med Orders - Current: Current Medications Acetaminophen (Tylenol) 650 mg PO Q6H PRN PRN Reason: Pain Last Admin: 10/04/16 18:24 Dose: 650 mg Al Hydroxide/Mg Hydroxide (Mag-Al Plus) 30 ml PO Q4H PRN PRN Reason: Indigestion Last Admin: 10/03/16 20:03 Dose: 30 ml Benzocaine/Menthol (Cepacol Sore Throat) 1 lozenge MUCMEM Q2H PRN PRN Reason: Sore Throat Last Admin: 10/05/16 04:39 Dose: 1 lozenge Folic Acid (Folic Acid) 1 mg SUBCUT DAILY [facility] Last Admin: 10/05/16 08:16 Dose: 1 mg Levothyroxine Sodium (Levothyroxine) 150 mcg PO ACBREAKFAST [facility] Last Admin: 10/05/16 06:52 Dose: 150 mcg Lorazepam (Ativan) 0 mg IVPUSH Q4H PRN; Protocol PRN Reason: Agitation Morphine Sulfate (Morphine) 2 mg IVPUSH Q2H PRN PRN Reason: Pain Last Admin: 10/03/16 03:50 Dose: 2 mg Nicotine (Habitrol) 21 mg TRDERM DAILY [facility] Last Admin: 10/05/16 08:17 Dose: 21 mg Ondansetron HCl (Zofran) 4 mg IVPUSH Q6H PRN PRN Reason: Nausea/Vomiting Last Admin: 10/05/16 08:17 Dose: 4 mg Pantoprazole Sodium (Protonix) 40 mg PO DAILY [facility] Last Admin: 10/05/16 08:16 Dose: 40 mg Thiamine HCl (Vitamin B-1) 100 mg PO BEDTIME [facility] Last Admin: 10/04/16 20:14 Dose: 100 mg Discontinued Medications Desmopressin Acetate (Desmopressin) 2 mcg SUBCUT Q6HR [facility] Last Admin: 10/02/16 13:01 Dose: Not Given Sodium Chloride (Normal Saline) 2,000 mls @ 999 mls/hr IV .Bolus ONE Stop: 10/01/16 01:46 Last Admin: 10/01/16 00:34 Dose: Not Given Sodium Chloride (Normal Saline) 1,000 mls @ 200 mls/hr IV .BOLUS ONE Stop: 10/01/16 05:07 Last Admin: 10/01/16 00:34 Dose: 200 mls/hr Potassium Chloride/Dextrose/Sod Cl (D5 Ns With 20 Meq Kcl) 50 mls @ 25 mls/hr IV ASDIRECTED [facility] Sodium Chloride (Normal Saline) 1,000 mls @ 25 mls/hr IV .BOLUS ONE Stop: 10/02/16 17:22 Last Infusion: 10/01/16 02:31 Dose: 25 mls/hr Potassium Chloride/Sodium Chloride (Normal Saline With 40 Meq Kcl) 500 mls @ 125 mls/hr IV ASDIRECTED [facility] Last Infusion: 10/01/16 02:32 Dose: 125 mls/hr Potassium Chloride/Sodium Chloride (Normal Saline With 40 Meq Kcl) 1,000 mls @ 150 mls/hr IV ASDIRECTED [facility] Stop: 10/01/16 09:54 Last Admin: 10/01/16 03:22 Dose: 150 mls/hr Potassium Chloride/Sodium Chloride (1/2 Ns With 20 Meq Kcl) 1,000 mls @ 50 mls/ hr IV ASDIRECTED [facility] Last Admin: 10/01/16 10:50 Dose: 50 mls/hr Dextrose/Water (Dextrose 5% In Water) 1,000 mls @ 100 mls/hr IV ASDIRECTED [facility] Stop: 10/02/16 00:08 Last Infusion: 10/01/16 20:39 Dose: 100 mls/hr Potassium Chloride 40 meq/ (Dextrose/Water) 1,020 mls @ 150 mls/hr IV ASDIRECTED [facility] Last Infusion: 10/02/16 00:24 Dose: 150 mls/hr Dextrose/Water (Dextrose 5% In Water) 1,000 mls @ 50 mls/hr IV ASDIRECTED [facility] Stop: 10/03/16 01:09 Last Infusion: 10/02/16 22:28 Dose: 0 mls/hr Levofloxacin (Levaquin) 750 mg PO Q24H [facility] Levofloxacin (Levaquin) 750 mg PO Q24H [facility] Last Admin: 10/02/16 13:51 Dose: 750 mg Levothyroxine Sodium (Synthroid) 100 mcg IVPUSH ONETIME ONE Stop: 10/01/16 00:49 Last Admin: 10/01/16 01:51 Dose: 100 mcg Ondansetron HCl (Zofran) 4 mg IVPUSH ONETIME ONE Stop: 10/01/16 00:24 Last Admin: 10/01/16 00:34 Dose: 4 mg Potassium Chloride (Klor-Con M20) 40 meq PO ONETIME ONE Stop: 10/01/16 02:58 Last Admin: 10/01/16 03:07 Dose: 40 meq Potassium Chloride (Klor-Con M20) 40 meq PO ONETIME ONE Stop: 10/01/16 19:36 Last Admin: 10/01/16 20:08 Dose: 40 meq Potassium Chloride (Potassium Chloride) 60 meq PO ONETIME ONE Stop: 10/02/16 00:10 Last Admin: 10/02/16 00:29 Dose: 60 meq Potassium Chloride (Klor-Con M20) 20 meq PO BID [facility] Stop: 10/04/16 09:01 Thiamine HCl (Vitamin B-1) 100 mg IVPUSH ONETIME ONE Stop: 09/30/16 23:47 Last Admin: 10/01/16 00:34 Dose: 100 mg - Exam Quality Assessment: DVT prophylaxis General: alert, oriented, cooperative, no acute distress HEENT: Pupils equal, Pupils reactive, EOMI, Mucous membr. moist/pink Neck: supple Lungs: Clear to auscultation, Normal respiratory effort Cardiovascular: Regular Rate, Regular Rhythm Abdomen: bowel sounds present, soft, no tenderness, no distension Back Exam: Normal Inspection Extremities: no edema, normal pulses, no tenderness/swelling Peripheral Pulses: 2+: Radial (L), Radial (R), Posterior Tibial (L), Posterior Tibial (R), Dorsalis Pedis (L), Dorsalis Pedis (R) Skin: warm, dry, intact Neurological: no new focal deficit Psy/Mental Status: alert, normal affect, normal mood - Problem List & Annotations (1) Altered mental status SNOMED Code(s): 422312607 Code(s): R41.82 - ALTERED MENTAL STATUS, UNSPECIFIED Status: Resolved Priority: Medium Current Visit: Yes Qualifiers: Altered mental status type: transient alteration of awareness Qualified Code(s): R40.4 - Transient alteration of awareness (2) Hyponatremia SNOMED Code(s): 02345584 Code(s): E87.1 - HYPO-OSMOLALITY AND HYPONATREMIA Status: Acute Priority : High Current Visit: Yes (3) Hypothyroidism SNOMED Code(s): 52296515 Code(s): E03.9 - HYPOTHYROIDISM, UNSPECIFIED Status: Chronic Priority: Medium Current Visit: Yes Qualifiers: Hypothyroidism type: unspecified Qualified Code(s): E03.9 - Hypothyroidism , unspecified (4) Alcohol abuse SNOMED Code(s): 54015955 Code(s): F10.10 - ALCOHOL ABUSE, UNCOMPLICATED Status: Acute Priority: High Current Visit: Yes - Problem List Review Problem List Initiated/Reviewed/Updated: Yes - Plan Plan:: 61 yo female admitted 10/01/16 for hyponatremia with pmh of ETOH abuse and hyothyroidism. Hypnatremia: Na 128 today, most likely getting near her baseline from her chronic ETOH abuse. No symptoms today. Will continue to monitor and plan for discharge in next day. ETOH abuse: Chronic. CIWA 0-2 with no ativan overnight. Continue Thiamine and Folic acid. Hypothyroidism: Cont. home thyroid replacement. VTE: SCD, High fall risk. Dispo: 1-2 days.
[2016-10-05] MEDS: buPROPion 150 MG Tab.SR PO SCH ×2 (13:40→20:08)
[2016-10-05] MEDS: Acetaminophen 325 MG Tab PO PRN (13:40)
[2016-10-05] MEDS: Escitalopram 10 MG Tab PO SCH (13:40)
[2016-10-05 17:36] LABS: CHLORIDE,CL 96 mmol/L (98-110); SODIUM,NA 129 mmol/L (136-146)
[2016-10-05] MEDS: Thiamine 100 MG Tab PO SCH (20:08)
[2016-10-06 05:02] LABS: CHLORIDE,CL 101 mmol/L (98-110); SODIUM,NA 131 mmol/L (136-146)
[2016-10-06] MEDS: Levothyroxine 150 MCG Tab PO SCH (06:29)
[2016-10-06 07:29] VITALS: BP 101/57
[2016-10-06] MEDS: buPROPion 150 MG Tab.SR PO SCH (08:01)
[2016-10-06] MEDS: Pantoprazole 40 MG Tab.CR PO SCH (08:01)
[2016-10-06] MEDS: Escitalopram 10 MG Tab PO SCH (08:01)
[2016-10-06] MEDS: Folic Acid 50 MG/10 ML MDV SUBCUT SCH (08:02)
[2016-10-06] MEDS: Nicotine 21 MG/24 Hr Patch TRDERM SCH (08:03)
[2016-10-06] MEDS: Ondansetron 4 MG/2 ML SDV IVPUSH PRN (09:40)
--- NOTE | 2016-10-06 12:56 | PCM.DCSUM1 ---
<Theo Mercado - Last Filed: 10/06/16 12:53> Discharge Summary - Hospital Course HPI Initial Comments: 61-year-old female admitted 10/01/16 for hyponatremia with past medical history of EtOH abuse and hypothyroidism. Brief History: Patient has had multiple admissions for alcohol intoxication and hyponatremia. She initially presented to the ED on 10/01/16 for altered mental status. She was reportedly found by friends to be confused with generalized weakness. When she presented in the ED she was noted to have a sodium of 102. EtOH was undetectable. Head CT and chest x-ray in the emergency department was unremarkable.ECG showed no acute ischemic changes. Patient was admitted for hyponatremia most likely secondary to EtOH. - Discharge Data Discharge Date: 10/06/16 Discharge Disposition: Home, Self-Care 01 Condition: Good - Discharge Diagnosis/Problem(s) (1) Altered mental status SNOMED Code(s): 924249521 ICD Code: R41.82 - ALTERED MENTAL STATUS, UNSPECIFIED Status: Resolved Priority: Medium Qualifiers: Altered mental status type: transient alteration of awareness Qualified Code(s): R40.4 - Transient alteration of awareness (2) Hyponatremia SNOMED Code(s): 75991223 ICD Code: E87.1 - HYPO-OSMOLALITY AND HYPONATREMIA Status: Resolved Priority: High (3) Hypothyroidism SNOMED Code(s): 94668515 ICD Code: E03.9 - HYPOTHYROIDISM, UNSPECIFIED Status: Chronic Priority: Medium Qualifiers: Hypothyroidism type: unspecified Qualified Code(s): E03.9 - Hypothyroidism , unspecified (4) Alcohol abuse SNOMED Code(s): 54424661 ICD Code: F10.10 - ALCOHOL ABUSE, UNCOMPLICATED Status: Chronic Priority : High - Patient Summary/Data Hospital Course: Hyponatremia was slowly resolved using D5W to limit rapid increase. Patient's cognition improved dramatically as hyponatremia resolved. On day of discharge patient's sodium was 131 which looking at previous admissions was close to her normal baseline. Patient was treated with thiamine and folic acid and CIWA protocol was initiated for alcohol withdrawal. On day of discharge, patient showed no signs of withdrawal and had not received Ativan for greater than 24 hours. She was instructed to abstain from alcohol and discussion on AA as well as formal treatment was discussed. Patient reported that she been to previous treatments and does attend AA but does not wish for formal treatment at this time. - Patient Instructions Diet: Heart Healthy Diet Activity: Rest and Relax Today Driving: Do Not Drive Showering/Bathing: May Shower Notify Provider of: Fever, Increased Pain, Swelling and Redness, Nausea and/or Vomiting Other/Special Instructions: Follow-up with PCP. Abstain from ETOH. Return to ED if having any new symptoms. - Discharge Plan Prescriptions/Med Rec: Ondansetron [Zofran ODT] 4 mg PO Q6H PRN #14 tab.dis PRN Reason: Nausea Pantoprazole [ProTONIX] 40 mg PO DAILY #14 tab.cr Home Medications: Home Meds Aspirin [Halfprin] 81 mg PO DAILY #10 tab.ec 01/22/16 [Rx] Escitalopram [Lexapro] 20 mg PO DAILY #10 tablet 01/22/16 [Rx] Levothyroxine Sodium 150 mcg PO ACBREAKFAST 07/19/16 [History] buPROPion HCl [Wellbutrin SR] 150 mg PO BID 07/19/16 [History] Ondansetron [Zofran ODT] 4 mg PO Q6H PRN #14 tab.dis 10/06/16 [Rx] Pantoprazole [ProTONIX] 40 mg PO DAILY #14 tab.cr 10/06/16 [Rx] Patient Handouts: Ondansetron oral dissolving tablet, Hyponatremia, Easy-to- Read, Pantoprazole tablets Referrals: Tyrel Youssef MD [Physician] - 10/13/16 10:15 am - Discharge Summary/Plan Comment DC Time >30 min.: Yes Discharge Summary/Plan Comment: 61-year-old female admitted 10/01/16 for hyponatremia with past medical history of EtOH abuse and hypothyroidism. Patient has had multiple admissions for alcohol intoxication and hyponatremia. She initially presented to the ED on 10/01/16 for altered mental status. She was reportedly found by friends to be confused with generalized weakness. When she presented in the ED she was noted to have a sodium of 102. EtOH was undetectable. Head CT and chest x-ray in the emergency department was unremarkable. ECG showed no acute ischemic changes. Patient was admitted for hyponatremia most likely secondary to EtOH. Hyponatremia was slowly resolved using D5W to limit rapid increase. Patient's cognition improved dramatically as hyponatremia resolved. On day of discharge patient's sodium was 131 which looking at previous admissions was close to her normal baseline. Patient was treated with thiamine and folic acid and CIWA protocol was initiated for alcohol withdrawal. On day of discharge, patient showed no signs of withdrawal and had not received Ativan for greater than 24 hours. She was instructed to abstain from alcohol and discussion on AA as well as formal treatment was discussed. Patient reported that she been to previous treatments and does attend AA but does not wish for formal treatment at this time. Patient was discharged in good condition with a prescription for Protonix for her GERD and Zofran for her occasional nausea. She was also scheduled a followup appointment with Tyrel Youssef M.D., patient's PCP. - General Info Date of Service: 10/06/16 Admission Dx/Problem (Free Text: Hyponatremia Subjective Update: Doing well this am. Ready to go home. No pain, tolerating diet. - Review of Systems General: Denies: Fever, Weakness, Fatigue HEENT: Denies: headaches, visual changes Pulmonary: Denies: shortness of breath, wheezing Cardiovascular: Denies: Chest Pain, Palpitations, Edema Gastrointestinal: Denies: Abdominal pain, Nausea, Vomiting Genitourinary: Denies: dysuria, hematuria Musculoskeletal: Denies: neck pain, leg pain Skin: Denies: cyanosis Neurological: Denies: Confusion, Dizziness Psychiatric: Denies: confusion - Patient Data Vitals - Most Recent: Last Vital Signs Temp 36.4 C 10/06/16 07:27 Pulse 88 10/06/16 07:27 Resp 17 10/06/16 07:27 BP 101/57 L 10/06/16 07:27 Pulse Ox 99 10/06/16 07:27 Weight - Most Recent: 45.5 kg I&O - Last 24 hours: Intake & Output 10/05/16 10/06/16 10/06/16 22:59 06:59 14:59 Intake Total 200 1600 610 Output Total 200 250 200 Balance 0 1350 410 Lab Results - Last 24 hrs: Laboratory Results - last 24 hr 10/05/16 10/06/16 Range/Units 17:00 04:12 Sodium 129 L 131 L (136-146) mmol/L Potassium 4.3 4.4 (3.5-5.1) mmol/L Chloride 96 L 101 (98-110) mmol/L Carbon Dioxide 26 24 (21-31) mmol/L BUN 14 14 (6.0-23.0) mg/dL Creatinine 0.8 0.7 (0.6-1.5) mg/dL Est Cr Clr Drug Dosing 54.67 62.48 mL/min Estimated GFR (MDRD) > 60.0 > 60.0 ml/min Glucose 88 78 (60-110) mg/dL Calcium 8.8 8.3 L (8.8-10.8) mg/dL JOVANNA Results - Last 24 hrs: Microbiology 10/01/16 10:49 Aerobic Blood Culture - Final Blood - Venous NO GROWTH AFTER 5 DAYS Anaerobic Blood Culture - Final NO GROWTH AFTER 5 DAYS 10/01/16 10:34 Aerobic Blood Culture - Final Blood - Venous - Lab Draw NO GROWTH AFTER 5 DAYS Anaerobic Blood Culture - Final NO GROWTH AFTER 5 DAYS Med Orders - Current: Current Medications Discontinued Medications Acetaminophen (Tylenol) 650 mg PO Q6H PRN PRN Reason: Pain Last Admin: 10/05/16 13:40 Dose: 650 mg Al Hydroxide/Mg Hydroxide (Mag-Al Plus) 30 ml PO Q4H PRN PRN Reason: Indigestion Last Admin: 10/03/16 20:03 Dose: 30 ml Benzocaine/Menthol (Cepacol Sore Throat) 1 lozenge MUCMEM Q2H PRN PRN Reason: Sore Throat Last Admin: 10/05/16 04:39 Dose: 1 lozenge Bupropion HCl (Wellbutrin Sr) 150 mg PO BID [facility] Last Admin: 10/06/16 08:01 Dose: 150 mg Desmopressin Acetate (Desmopressin) 2 mcg SUBCUT Q6HR [facility] Last Admin: 10/02/16 13:01 Dose: Not Given Escitalopram Oxalate (Lexapro) 20 mg PO DAILY [facility] Last Admin: 10/06/16 08:01 Dose: 20 mg Folic Acid (Folic Acid) 1 mg SUBCUT DAILY [facility] Last Admin: 10/06/16 08:02 Dose: 1 mg Sodium Chloride (Normal Saline) 2,000 mls @ 999 mls/hr IV .Bolus ONE Stop: 10/01/16 01:46 Last Admin: 10/01/16 00:34 Dose: Not Given Sodium Chloride (Normal Saline) 1,000 mls @ 200 mls/hr IV .BOLUS ONE Stop: 10/01/16 05:07 Last Admin: 10/01/16 00:34 Dose: 200 mls/hr Potassium Chloride/Dextrose/Sod Cl (D5 Ns With 20 Meq Kcl) 50 mls @ 25 mls/hr IV ASDIRECTED [facility] Sodium Chloride (Normal Saline) 1,000 mls @ 25 mls/hr IV .BOLUS ONE Stop: 10/02/16 17:22 Last Infusion: 10/01/16 02:31 Dose: 25 mls/hr Potassium Chloride/Sodium Chloride (Normal Saline With 40 Meq Kcl) 500 mls @ 125 mls/hr IV ASDIRECTED [facility] Last Infusion: 10/01/16 02:32 Dose: 125 mls/hr Potassium Chloride/Sodium Chloride (Normal Saline With 40 Meq Kcl) 1,000 mls @ 150 mls/hr IV ASDIRECTED [facility] Stop: 10/01/16 09:54 Last Admin: 10/01/16 03:22 Dose: 150 mls/hr Potassium Chloride/Sodium Chloride (1/2 Ns With 20 Meq Kcl) 1,000 mls @ 50 mls/ hr IV ASDIRECTED [facility] Last Admin: 10/01/16 10:50 Dose: 50 mls/hr Dextrose/Water (Dextrose 5% In Water) 1,000 mls @ 100 mls/hr IV ASDIRECTED [facility] Stop: 10/02/16 00:08 Last Infusion: 10/01/16 20:39 Dose: 100 mls/hr Potassium Chloride 40 meq/ (Dextrose/Water) 1,020 mls @ 150 mls/hr IV ASDIRECTED [facility] Last Infusion: 10/02/16 00:24 Dose: 150 mls/hr Dextrose/Water (Dextrose 5% In Water) 1,000 mls @ 50 mls/hr IV ASDIRECTED [facility] Stop: 10/03/16 01:09 Last Infusion: 10/02/16 22:28 Dose: 0 mls/hr Levofloxacin (Levaquin) 750 mg PO Q24H [facility] Levofloxacin (Levaquin) 750 mg PO Q24H [facility] Last Admin: 10/02/16 13:51 Dose: 750 mg Levothyroxine Sodium (Synthroid) 100 mcg IVPUSH ONETIME ONE Stop: 10/01/16 00:49 Last Admin: 10/01/16 01:51 Dose: 100 mcg Levothyroxine Sodium (Levothyroxine) 150 mcg PO ACBREAKFAST [facility] Last Admin: 10/06/16 06:29 Dose: 150 mcg Lorazepam (Ativan) 0 mg IVPUSH Q4H PRN; Protocol PRN Reason: Agitation Morphine Sulfate (Morphine) 2 mg IVPUSH Q2H PRN PRN Reason: Pain Last Admin: 10/03/16 03:50 Dose: 2 mg Nicotine (Habitrol) 21 mg TRDERM DAILY [facility] Last Admin: 10/06/16 08:03 Dose: 21 mg Ondansetron HCl (Zofran) 4 mg IVPUSH ONETIME ONE Stop: 10/01/16 00:24 Last Admin: 10/01/16 00:34 Dose: 4 mg Ondansetron HCl (Zofran) 4 mg IVPUSH Q6H PRN PRN Reason: Nausea/Vomiting Last Admin: 10/06/16 09:40 Dose: 4 mg Pantoprazole Sodium (Protonix) 40 mg PO DAILY [facility] Last Admin: 10/06/16 08:01 Dose: 40 mg Potassium Chloride (Klor-Con M20) 40 meq PO ONETIME ONE Stop: 10/01/16 02:58 Last Admin: 10/01/16 03:07 Dose: 40 meq Potassium Chloride (Klor-Con M20) 40 meq PO ONETIME ONE Stop: 10/01/16 19:36 Last Admin: 10/01/16 20:08 Dose: 40 meq Potassium Chloride (Potassium Chloride) 60 meq PO ONETIME ONE Stop: 10/02/16 00:10 Last Admin: 10/02/16 00:29 Dose: 60 meq Potassium Chloride (Klor-Con M20) 20 meq PO BID [facility] Stop: 10/04/16 09:01 Thiamine HCl (Vitamin B-1) 100 mg IVPUSH ONETIME ONE Stop: 09/30/16 23:47 Last Admin: 10/01/16 00:34 Dose: 100 mg Thiamine HCl (Vitamin B-1) 100 mg PO BEDTIME [facility] Last Admin: 10/05/16 20:08 Dose: 100 mg - Exam Quality Assessment: Reports: DVT prophylaxis General: Reports: alert, oriented, cooperative, no acute distress HEENT: Reports: Pupils equal, Pupils reactive, EOMI, Mucous membr. moist/pink Neck: Reports: supple Lungs: Reports: Clear to auscultation, Normal respiratory effort Cardiovascular: Reports: Regular Rate, Regular Rhythm Abdomen: Reports: bowel sounds present, soft, no tenderness, no distension Rectal (Female) Exam: Normal Rectal Tone Back Exam: Reports: Normal Inspection, Full Range of Motion Extremities: Reports: no edema, normal pulses Skin: Reports: warm, dry, intact Wound/Incisions: Reports: healing well Neurological: Reports: no new focal deficit Psy/Mental Status: Reports: alert, normal affect, normal mood *Q Meaningful Use (DIS) - VTE *Q VTE Criteria *Q: - Stroke *Q Stroke Criteria *Q: - AMI *Q AMI Criteria *Q: <JonathanAmadeo Frank - Last Filed: 10/06/16 18:22> - Patient Data Vitals - Most Recent: Last Vital Signs Temp 36.4 C 10/06/16 07:27 Pulse 88 10/06/16 07:27 Resp 17 10/06/16 07:27 BP 101/57 L 10/06/16 07:27 Pulse Ox 99 10/06/16 07:27 I&O - Last 24 hours: Intake & Output 10/06/16 10/06/16 10/06/16 06:59 14:59 22:59 Intake Total 1600 610 Output Total 250 200 Balance 1350 410 Lab Results - Last 24 hrs: Laboratory Results - last 24 hr 10/06/16 Range/Units 04:12 Sodium 131 L (136-146) mmol/L Potassium 4.4 (3.5-5.1) mmol/L Chloride 101 (98-110) mmol/L Carbon Dioxide 24 (21-31) mmol/L BUN 14 (6.0-23.0) mg/dL Creatinine 0.7 (0.6-1.5) mg/dL Est Cr Clr Drug Dosing 62.48 mL/min Estimated GFR (MDRD) > 60.0 ml/min Glucose 78 (60-110) mg/dL Calcium 8.3 L (8.8-10.8) mg/dL JOVANNA Results - Last 24 hrs: Microbiology 10/01/16 10:49 Aerobic Blood Culture - Final Blood - Venous NO GROWTH AFTER 5 DAYS Anaerobic Blood Culture - Final NO GROWTH AFTER 5 DAYS 10/01/16 10:34 Aerobic Blood Culture - Final Blood - Venous - Lab Draw NO GROWTH AFTER 5 DAYS Anaerobic Blood Culture - Final NO GROWTH AFTER 5 DAYS Med Orders - Current: Current Medications Discontinued Medications Acetaminophen (Tylenol) 650 mg PO Q6H PRN PRN Reason: Pain Last Admin: 10/05/16 13:40 Dose: 650 mg Al Hydroxide/Mg Hydroxide (Mag-Al Plus) 30 ml PO Q4H PRN PRN Reason: Indigestion Last Admin: 10/03/16 20:03 Dose: 30 ml Benzocaine/Menthol (Cepacol Sore Throat) 1 lozenge MUCMEM Q2H PRN PRN Reason: Sore Throat Last Admin: 10/05/16 04:39 Dose: 1 lozenge Bupropion HCl (Wellbutrin Sr) 150 mg PO BID [facility] Last Admin: 10/06/16 08:01 Dose: 150 mg Desmopressin Acetate (Desmopressin) 2 mcg SUBCUT Q6HR [facility] Last Admin: 10/02/16 13:01 Dose: Not Given Escitalopram Oxalate (Lexapro) 20 mg PO DAILY [facility] Last Admin: 10/06/16 08:01 Dose: 20 mg Folic Acid (Folic Acid) 1 mg SUBCUT DAILY [facility] Last Admin: 10/06/16 08:02 Dose: 1 mg Sodium Chloride (Normal Saline) 2,000 mls @ 999 mls/hr IV .Bolus ONE Stop: 10/01/16 01:46 Last Admin: 10/01/16 00:34 Dose: Not Given Sodium Chloride (Normal Saline) 1,000 mls @ 200 mls/hr IV .BOLUS ONE Stop: 10/01/16 05:07 Last Admin: 10/01/16 00:34 Dose: 200 mls/hr Potassium Chloride/Dextrose/Sod Cl (D5 Ns With 20 Meq Kcl) 50 mls @ 25 mls/hr IV ASDIRECTED [facility] Sodium Chloride (Normal Saline) 1,000 mls @ 25 mls/hr IV .BOLUS ONE Stop: 10/02/16 17:22 Last Infusion: 10/01/16 02:31 Dose: 25 mls/hr Potassium Chloride/Sodium Chloride (Normal Saline With 40 Meq Kcl) 500 mls @ 125 mls/hr IV ASDIRECTED [facility] Last Infusion: 10/01/16 02:32 Dose: 125 mls/hr Potassium Chloride/Sodium Chloride (Normal Saline With 40 Meq Kcl) 1,000 mls @ 150 mls/hr IV ASDIRECTED [facility] Stop: 10/01/16 09:54 Last Admin: 10/01/16 03:22 Dose: 150 mls/hr Potassium Chloride/Sodium Chloride (1/2 Ns With 20 Meq Kcl) 1,000 mls @ 50 mls/ hr IV ASDIRECTED [facility] Last Admin: 10/01/16 10:50 Dose: 50 mls/hr Dextrose/Water (Dextrose 5% In Water) 1,000 mls @ 100 mls/hr IV ASDIRECTED [facility]OU[facility] Stop: 10/02/16 00:08 Last Infusion: 10/01/16 20:39 Dose: 100 mls/hr Potassium Chloride 40 meq/ (Dextrose/Water) 1,020 mls @ 150 mls/hr IV ASDIRECTED [facility] Last Infusion: 10/02/16 00:24 Dose: 150 mls/hr Dextrose/Water (Dextrose 5% In Water) 1,000 mls @ 50 mls/hr IV ASDIRECTED [facility] Stop: 10/03/16 01:09 Last Infusion: 10/02/16 22:28 Dose: 0 mls/hr Levofloxacin (Levaquin) 750 mg PO Q24H [facility] Levofloxacin (Levaquin) 750 mg PO Q24H [facility] Last Admin: 10/02/16 13:51 Dose: 750 mg Levothyroxine Sodium (Synthroid) 100 mcg IVPUSH ONETIME ONE Stop: 10/01/16 00:49 Last Admin: 10/01/16 01:51 Dose: 100 mcg Levothyroxine Sodium (Levothyroxine) 150 mcg PO ACBREAKFAST [facility] Last Admin: 10/06/16 06:29 Dose: 150 mcg Lorazepam (Ativan) 0 mg IVPUSH Q4H PRN; Protocol PRN Reason: Agitation Morphine Sulfate (Morphine) 2 mg IVPUSH Q2H PRN PRN Reason: Pain Last Admin: 10/03/16 03:50 Dose: 2 mg Nicotine (Habitrol) 21 mg TRDERM DAILY [facility] Last Admin: 10/06/16 08:03 Dose: 21 mg Ondansetron HCl (Zofran) 4 mg IVPUSH ONETIME ONE Stop: 10/01/16 00:24 Last Admin: 10/01/16 00:34 Dose: 4 mg Ondansetron HCl (Zofran) 4 mg IVPUSH Q6H PRN PRN Reason: Nausea/Vomiting Last Admin: 10/06/16 09:40 Dose: 4 mg Pantoprazole Sodium (Protonix) 40 mg PO DAILY [facility] Last Admin: 10/06/16 08:01 Dose: 40 mg Potassium Chloride (Klor-Con M20) 40 meq PO ONETIME ONE Stop: 10/01/16 02:58 Last Admin: 10/01/16 03:07 Dose: 40 meq Potassium Chloride (Klor-Con M20) 40 meq PO ONETIME ONE Stop: 10/01/16 19:36 Last Admin: 10/01/16 20:08 Dose: 40 meq Potassium Chloride (Potassium Chloride) 60 meq PO ONETIME ONE Stop: 10/02/16 00:10 Last Admin: 10/02/16 00:29 Dose: 60 meq Potassium Chloride (Klor-Con M20) 20 meq PO BID [facility] Stop: 10/04/16 09:01 Thiamine HCl (Vitamin B-1) 100 mg IVPUSH ONETIME ONE Stop: 09/30/16 23:47 Last Admin: 10/01/16 00:34 Dose: 100 mg Thiamine HCl (Vitamin B-1) 100 mg PO BEDTIME [facility] Last Admin: 10/05/16 20:08 Dose: 100 mg *Q Meaningful Use (DIS) - VTE *Q VTE Criteria *Q: - Stroke *Q Stroke Criteria *Q: - AMI *Q AMI Criteria *Q: - Free Text/Narrative Note: I have examined the patient. I have discussed findings and treatment plan with resident. I agree with the assessment and plan outlined in the following resident's note.
== END 2016-10-06 10:15 | disposition home or self-care (01) | DRG 425 ==
LOC: MW.ED 23:25 → MW.ICU 10-01 01:10 → MW.MS 10-05 13:10
PROVIDERS: ADMIT Internal Medicine; ATTEND Internal Medicine
PROC: HZ2ZZZZ Detoxification Services for Substance Abuse Treatment (ICD-10-PCS; principal; 2016-10-01)
DX: E87.1 Hypo-osmolality and hyponatremia (principal); F10.10 Alcohol abuse, uncomplicated; R40.4 Transient alteration of awareness; E03.9 Hypothyroidism, unspecified; K21.9 Gastro-esophageal reflux disease without esophagitis; I25.10 Atherosclerotic heart disease of native coronary artery without angina pectoris; I25.2 Old myocardial infarction; E78.00 Pure hypercholesterolemia, unspecified; F32.9 Major depressive disorder, single episode, unspecified; D72.829 Elevated white blood cell count, unspecified
CPT/HCPCS: 36415; 70450; 70450-26; 71010; 71010-26; 80048; 80053; 80076; 80305; 81001; 82150; 83605; 83690; 83735; 83930; 83935; 84300; 84436; 84439; 84443; 84481; 84484; 85025; 87040; 87086; 93005; 96361; 96374; 96375; 99285; 99285-25; A9270-GY; G0480; J2270; J2405; J2597; J3411; J3480; J7040; J7060

== ENCOUNTER 2016-10-12 09:01 | Emergency (ER) | payer BC ==
--- NOTE | 2016-10-12 09:19 | EDM.PDOC ---
ED HPI GENERAL MEDICAL PROBLEM - General Chief Complaint: Drug or Alcohol Abuse Stated Complaint: ETOH/PSYCH Time Seen by Provider: 10/12/16 09:18 Source of Information: Reports: Patient - History of Present Illness INITIAL COMMENTS - FREE TEXT/NARRATIVE: HISTORY AND PHYSICAL: History of present illness: []Patient presents to emergency room via ambulance, her roommate reports multiple seizures over the last 24 hours Patient is a known alcoholic she has been through treatment at least 6 times in the past, she presents with a CIAWA score of about 21, she does have hallucinations seeing her in speaking with him as well as then wanting him to come up to the ER and bring her home Roommate reports up to 18 beers drainage yesterday only one beer this morning She does have a history of depression on Lexapro Currently she is expressed some suicidal ideation with a plan of using a gun she did mention this to myself during exam Have discussed the patient with psychiatrist Dr. 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 Past medical history: As per history of present illness and as reviewed below otherwise noncontributory. Surgical history: As per history of present illness and as reviewed below otherwise noncontributory. Social history: No reported history of drug or alcohol abuse. Family history: As per history of present illness and as reviewed below otherwise noncontributory. Physical exam: HEENT: Atraumatic, normocephalic, pupils reactive, negative for conjunctival pallor or scleral icterus, mucous membranes moist, throat clear, neck supple, nontender, trachea midline. Lungs: Clear to auscultation, breath sounds equal bilaterally, chest nontender. Heart: S1S2, regular, negative for clicks, rubs, or JVD. Abdomen: Soft, nondistended, nontender. Negative for masses or hepatosplenomegaly. Negative for costovertebral tenderness. Pelvis: Stable nontender. Genitourinary: Deferred. Rectal: Deferred. Extremities: Atraumatic, negative for cords or calf pain. Neurovascular unremarkable. Neuro: Awake, alert, oriented. Cranial nerves II through XII unremarkable. Cerebellum unremarkable. Motor and sensory unremarkable throughout. Exam nonfocal. Diagnostics: []Lab as below EKG Chest 1 view Therapeutics: [Ativan 1 mg IV 1 L normal saline bolus Impression: []Alcohol withdrawal Seizure by reported history Alcohol use abuse and dependence Suicide ideation with plan Definitive disposition and diagnosis as appropriate pending reevaluation and review of above. collar bone Pain Score (Numeric/FACES): 5 - Related Data Allergies Allergy/AdvReac Type Severity Reaction Status Date / Time Penicillins Allergy Cannot Verified 10/12/16 10:09 Remember Home Meds: Home Meds Aspirin [Halfprin] 81 mg PO DAILY #10 tab.ec 01/22/16 [Rx] Escitalopram [Lexapro] 20 mg PO DAILY #10 tablet 01/22/16 [Rx] Levothyroxine Sodium 150 mcg PO ACBREAKFAST 07/19/16 [History] buPROPion HCl [Wellbutrin SR] 150 mg PO BID 07/19/16 [History] Pantoprazole [ProTONIX] 40 mg PO DAILY #14 tab.cr 10/06/16 [Rx] Albuterol/Ipratropium [Combivent Respimat] 1 puff INH ASDIRECTED 10/12/16 [ History] Lisinopril 2.5 mg PO DAILY 10/12/16 [History] Nitroglycerin 0.4 mg SL ASDIRECTED 10/12/16 [History] Simvastatin [Simvastatin] 1 tab PO DAILY 10/12/16 [History] Past Medical History HEENT History: Reports: None Cardiovascular History: Reports: CAD, High Cholesterol, [place] Respiratory History: Reports: Asthma, COPD Gastrointestinal History: Reports: Pancreatitis Genitourinary History: Reports: None CRITICAL POWER TECHNICIAN History: Reports: None Neurological History: Reports: None Psychiatric History: Reports: Addiction, Depression Endocrine/Metabolic History: Reports: Hypothyroidism Hematologic History: Reports: None Immunologic History: Reports: None Oncologic (Cancer) History: Reports: None Dermatologic History: Reports: None - Infectious Disease History Infectious Disease History: Reports: None - Past Surgical History Musculoskeletal Surgical History: Reports: Other (See Below) Social & Family History - Family History Family Medical History: Noncontributory HEENT: Reports: None Cardiac: Reports: None Respiratory: Reports: None GI: Reports: None : Reports: None OBGYN: Reports: None Musculoskeletal: Reports: None Neurological: Reports: None Psychiatric: Reports: None Endocrine/Metabolic: Reports: None Hematologic: Reports: None Immunologic: Reports: None Dermatologic: Reports: None Oncologic: Reports: None - Tobacco Use Smoking Status *Q: Current Every Day Smoker Years of Tobacco use: 20 Packs/Tins Daily: 2 Used Tobacco, but Quit: No Second Hand Smoke Exposure: No - Caffeine Use Caffeine Use: Reports: Coffee - Alcohol Use Days Per Week of Alcohol Use: 7 Number of Drinks Per Day: 6 Total Drinks Per Week: 42 - Recreational Drug Use Recreational Drug Use: No - Living Situation & Occupation Living situation: Reports: ED ROS GENERAL - Review of Systems Review Of Systems: ROS reveals no pertinent complaints other than HPI. ED EXAM, GENERAL - Physical Exam Exam: See Below Course - Vital Signs Last Recorded V/S: Last Vital Signs Temp 36.6 C 10/12/16 09:10 Pulse 85 10/12/16 09:10 Resp 18 10/12/16 09:10 BP 140/100 H 10/12/16 09:10 Pulse Ox 98 10/12/16 09:10 - Orders/Labs/Meds Orders: Active Orders 24 hr Category Date Time Status EKG Documentation Completion [RC] STAT Care 10/12/16 09:13 Active FREE T3 [REF] Stat Lab 10/12/16 09:19 Received Labs: Laboratory Tests 10/12/16 10/12/16 10/12/16 Range/Units 09:10 09:10 09:19 WBC 7.30 (4.0-11.0) K/uL RBC 3.74 L (4.30-5.90) M/uL Hgb 12.4 (12.0-16.0) g/dL Hct 36.0 (36.0-46.0) % MCV 96.3 (80.0-98.0) fL MCH 33.2 H (27.0-32.0) pg MCHC 34.4 (31.0-37.0) g/dL RDW Std Deviation 50.7 (28.0-62.0) fl RDW Coeff of Ayleen 15 (11.0-15.0) % Plt Count 410 H (150-400) K/uL MPV 8.60 (7.40-12.00) fL Neut % (Auto) 73.2 (48.0-80.0) % Lymph % (Auto) 19.3 (16.0-40.0) % [place] % (Auto) 7.0 (0.0-15.0) % Eos % (Auto) 0.1 (0.0-7.0) % Baso % (Auto) 0.4 (0.0-1.5) % Neut # (Auto) 5.3 (1.4-5.7) K/uL Lymph # (Auto) 1.4 (0.6-2.4) K/uL [place] # (Auto) 0.5 (0.0-0.8) K/uL Eos # (Auto) 0.0 (0.0-0.7) K/uL Baso # (Auto) 0.0 (0.0-0.1) K/uL Nucleated RBC % 0.0 /100WBC Nucleated RBCs # 0 K/uL Sodium (136-146) mmol/L Potassium (3.5-5.1) mmol/L Chloride (98-110) mmol/L Carbon Dioxide (21-31) mmol/L BUN (6.0-23.0) mg/dL Creatinine (0.6-1.5) mg/dL Est Cr Clr Drug Dosing mL/min Estimated GFR (MDRD) ml/min Glucose (60-110) mg/dL Calcium (8.8-10.8) mg/dL Magnesium (1.5-2.3) mEq/L Total Bilirubin (0.1-1.5) mg/dL AST (5-40) IU/L ALT (8-54) IU/L Alkaline Phosphatase (40-150) Total Protein (6.0-8.0) g/dL Albumin (3.4-4.8) g/dL Globulin (2.0-3.5) g/dL Albumin/Globulin Ratio (1.3-2.8) TSH 3rd Generation (0.47-5.0) uIU/mL Urine Color YELLOW Urine Appearance CLEAR Urine pH 5.5 (5.0-8.0) Ur Specific Dresser 1.010 (1.001-1.035) Urine Protein NEGATIVE (NEGATIVE) mg/dL Urine Glucose (UA) NEGATIVE (NEGATIVE) mg/dL Urine Ketones NEGATIVE (NEGATIVE) mg/dL Urine Occult Blood NEGATIVE (NEGATIVE) Urine Nitrite NEGATIVE (NEGATIVE) Urine Bilirubin NEGATIVE (NEGATIVE) Urine Urobilinogen 0.2 (<2.0) EU/dL Ur Leukocyte Esterase NEGATIVE (NEGATIVE) Urine RBC 0-5 (0-2/HPF) Urine WBC 0-5 (0-5/HPF) Ur Epithelial Cells MODERATE (NONE-FEW) Urine Bacteria FEW (NEGATIVE) Salicylates (0-20) mg/dL Urine Opiates Screen NEGATIVE (NEGATIVE) Ur Oxycodone Screen NEGATIVE (NEGATIVE) Urine Methadone Screen NEGATIVE (NEGATIVE) Acetaminophen ug/mL Ur Barbiturates Screen NEGATIVE (NEGATIVE) Ur Phencyclidine Scrn NEGATIVE (NEGATIVE) Ur Amphetamine Screen NEGATIVE (NEGATIVE) U Methamphetamines Scrn NEGATIVE (NEGATIVE) U Benzodiazepines Scrn NEGATIVE (NEGATIVE) U Cocaine Metab Screen NEGATIVE (NEGATIVE) U Marijuana (THC) Screen NEGATIVE (NEGATIVE) Ethyl Alcohol mg/dL 10/12/16 Range/Units 09:19 WBC (4.0-11.0) K/uL RBC (4.30-5.90) M/uL Hgb (12.0-16.0) g/dL Hct (36.0-46.0) % MCV (80.0-98.0) fL MCH (27.0-32.0) pg MCHC (31.0-37.0) g/dL RDW Std Deviation (28.0-62.0) fl RDW Coeff of Ayleen (11.0-15.0) % Plt Count (150-400) K/uL MPV (7.40-12.00) fL Neut % (Auto) (48.0-80.0) % Lymph % (Auto) (16.0-40.0) % [place] % (Auto) (0.0-15.0) % Eos % (Auto) (0.0-7.0) % Baso % (Auto) (0.0-1.5) % Neut # (Auto) (1.4-5.7) K/uL Lymph # (Auto) (0.6-2.4) K/uL [place] # (Auto) (0.0-0.8) K/uL Eos # (Auto) (0.0-0.7) K/uL Baso # (Auto) (0.0-0.1) K/uL Nucleated RBC % /100WBC Nucleated RBCs # K/uL Sodium 136 (136-146) mmol/L Potassium 4.1 (3.5-5.1) mmol/L Chloride 103 (98-110) mmol/L Carbon Dioxide 19 L (21-31) mmol/L BUN 6 (6.0-23.0) mg/dL Creatinine 0.7 (0.6-1.5) mg/dL Est Cr Clr Drug Dosing 62.35 mL/min Estimated GFR (MDRD) > 60.0 ml/min Glucose 86 (60-110) mg/dL Calcium 9.2 (8.8-10.8) mg/dL Magnesium 1.6 (1.5-2.3) mEq/L Total Bilirubin 0.4 (0.1-1.5) mg/dL AST 35 (5-40) IU/L ALT 18 (8-54) IU/L Alkaline Phosphatase 62 (40-150) Total Protein 7.0 (6.0-8.0) g/dL Albumin 4.3 (3.4-4.8) g/dL Globulin 2.7 (2.0-3.5) g/dL Albumin/Globulin Ratio 1.6 (1.3-2.8) TSH 3rd Generation 13.13 H (0.47-5.0) uIU/mL Urine Color Urine Appearance Urine pH (5.0-8.0) Ur Specific Dresser (1.001-1.035) Urine Protein (NEGATIVE) mg/dL Urine Glucose (UA) (NEGATIVE) mg/dL Urine Ketones (NEGATIVE) mg/dL Urine Occult Blood (NEGATIVE) Urine Nitrite (NEGATIVE) Urine Bilirubin (NEGATIVE) Urine Urobilinogen (<2.0) EU/dL Ur Leukocyte Esterase (NEGATIVE) Urine RBC (0-2/HPF) Urine WBC (0-5/HPF) Ur Epithelial Cells (NONE-FEW) Urine Bacteria (NEGATIVE) Salicylates < 5.0 (0-20) mg/dL Urine Opiates Screen (NEGATIVE) Ur Oxycodone Screen (NEGATIVE) Urine Methadone Screen (NEGATIVE) Acetaminophen < 3.0 ug/mL Ur Barbiturates Screen (NEGATIVE) Ur Phencyclidine Scrn (NEGATIVE) Ur Amphetamine Screen (NEGATIVE) U Methamphetamines Scrn (NEGATIVE) U Benzodiazepines Scrn (NEGATIVE) U Cocaine Metab Screen (NEGATIVE) U Marijuana (THC) Screen (NEGATIVE) Ethyl Alcohol 66.7 mg/dL Meds: Medications Discontinued Medications Generic Name Dose Route Start Last Admin Trade Name Padilla PRN Reason Stop Dose Admin Lorazepam 2 mg 10/12/16 10:08 Ativan IVPUSH 10/12/16 10:09 ONETIME ONE Departure - Departure Time of Disposition: 10:25 Disposition: DC/Tfer to Other 70 Condition: Good Clinical Impression: Alcohol withdrawal syndrome, Suicidal ideations - Discharge Information Forms: ED Department Discharge Additional Instructions: Patient to be transferred to [facility] - My Orders Last 24 Hours: My Active Orders 10/12/16 09:13 EKG Documentation Completion [RC] STAT 10/12/16 09:19 FREE T3 [REF] Stat - Assessment/Plan Last 24 Hours: My Active Orders 10/12/16 09:13 EKG Documentation Completion [RC] STAT 10/12/16 09:19 FREE T3 [REF] Stat
[2016-10-12 09:52] LABS: CHLORIDE,CL 103 mmol/L (98-110); SODIUM,NA 136 mmol/L (136-146)
[2016-10-12 09:56] LABS: ACETAMINOPHEN < 3.0 ug/mL
--- NOTE | 2016-10-12 09:59 | CR ---
EXAMINATION: Portable chest radiograph. HISTORY: Shortness of breath. FINDINGS: The trachea is midline. The cardiomediastinal silhouette is within normal limits. No pulmonary infil trates, effusions or pneumothorax. Mild hyperinflation. Left clavicular screw and plate hardware noted. IMPRESSION: No acute cardiopulmonary process.
[2016-10-12] MEDS ORDERED: LORazepam 2 MG/ML MDV IVPUSH ONE (10:08)
[2016-10-12] MEDS ORDERED: Sodium Chloride 0.9% 1,000 ML IV ONE (10:27)
[2016-10-12] MEDS ORDERED: Ziprasidone Mesylate 20 MG Vial IM ONE (11:24)
[2016-10-12] MEDS ORDERED: Water For Injection, Sterile 20 ML ONE (11:32)
[2016-10-12 13:48] VITALS: BP 178/101
== END 2016-10-12 11:45 | disposition other institution (70) ==
LOC: MW.ED 09:01
DX: F10.239 Alcohol dependence with withdrawal, unspecified (principal); R45.851 Suicidal ideations; I25.10 Atherosclerotic heart disease of native coronary artery without angina pectoris; E78.00 Pure hypercholesterolemia, unspecified; I25.2 Old myocardial infarction; J45.909 Unspecified asthma, uncomplicated; J44.9 Chronic obstructive pulmonary disease, unspecified; F32.9 Major depressive disorder, single episode, unspecified; E03.9 Hypothyroidism, unspecified; F17.210 Nicotine dependence, cigarettes, uncomplicated; Z88.0 Allergy status to penicillin; Z79.82 Long term (current) use of aspirin; Z79.899 Other long term (current) drug therapy
CPT/HCPCS: 36415; 71010; 80053; 80305; 81001; 83735; 84443; 84481; 85025; 93005; 96361; 96374; 96375; 99285; G0480; J2060; J3486; J7040

== ENCOUNTER 2017-02-09 15:20 | Emergency (ER) | payer BC ==
[2017-02-09] MEDS ORDERED: Sodium Chloride 0.9% 1,000 ML IV ONE (15:35)
[2017-02-09] MEDS ORDERED: Ondansetron 4 MG/2 ML SDV IVPUSH ONE (15:35)
--- NOTE | 2017-02-09 15:48 | EDM.PDOCBH ---
ED HPI GENERAL MEDICAL PROBLEM - General Chief Complaint: Drug or Alcohol Abuse Stated Complaint: ALCOHOL Time Seen by Provider: 02/09/17 15:33 Source of Information: Reports: Patient History Limitations: Reports: No Limitations - History of Present Illness INITIAL COMMENTS - FREE TEXT/NARRATIVE: HISTORY AND PHYSICAL: History of present illness: Patient is a 61-year-old female who presents to the emergency room via EMS with complaints of alcohol intoxication. She states that she does not feel "well all over". She does have a history of alcohol abuse and states that she recently got out of treatment program soon started drinking after. Has been drinking daily for the last 3 weeks, 12 cans of bud light per day. Denies any drug abuse. Patient reports that she has "a lot of" mental illness and is supposed to take medication which she currently is not. Currently complains of generalized weakness, "seizures", and inability to stop drinking alcohol. Reports she has had seizures since leaving the treatment facility. "They becoming more severe and intense every day ". As we are having our conversation the patient states that she is having a seizure. She is able to talk and follow commands during this "seizure activity". She is not incontinent of urine and is alert. History of suicidal ideation. Currently has no thoughts of self-harm or harming others. Review of systems: As per history of present illness and below otherwise all systems reviewed and negative. Past medical history: As per history of present illness and as reviewed below otherwise noncontributory. Surgical history: As per history of present illness and as reviewed below otherwise noncontributory. Social history: No reported history of drug or alcohol abuse. Family history: As per history of present illness and as reviewed below otherwise noncontributory. Physical exam: Gen.: Alert and oriented 61-year-old female. Appears nontoxic. HEENT: Atraumatic, normocephalic, pupils reactive, negative for conjunctival pallor or scleral icterus, mucous membranes moist, throat clear, neck supple, nontender, trachea midline. Lungs: Clear to auscultation, breath sounds equal bilaterally, chest nontender. Heart: S1S2, regular, negative for clicks, rubs, or JVD. Abdomen: Soft, nondistended, nontender. Negative for masses or hepatosplenomegaly. Negative for costovertebral tenderness. Pelvis: Stable nontender. Genitourinary: Deferred. Rectal: Deferred. Extremities: Atraumatic, negative for cords or calf pain. Neurovascular unremarkable. Neuro: Awake, alert, oriented. Cranial nerves II through XII unremarkable. Cerebellum unremarkable. Motor and sensory unremarkable throughout. Exam nonfocal. Patient ate a meal tray without any nausea. Reviewed patient's labs with her, patient states she feels better after eating and receiving IV fluids and Zofran. When asked what her call of today's visit was states that she just wanted to "feel better ". She does not want any type of IN-or OUT-patient alcohol treatment. She states after she receives the remainder of her IV fluid she would like to be discharged to home. I instructed her that she should follow up with PCP for follow up and connect with behavioral health/treatment facility or her alcohol abuse. Patient voices understanding and is agreeable to plan of care. Has a ride home from a family member. Diagnostics: CBC, CMP, troponin, EKG, one view chest, alcohol level Therapeutics: IV fluid, Zofran, IV Banana bag Impression: Alcohol intoxication Plan: 1. Stop drinking alcohol 2. Encourage plenty of nonalcoholic fluids and eat well-balanced meals throughout the day. 3. Follow-up with behavioral health/treatment facility for better management of your drinking. Follow-up with the primary caregiver in the next 1-2 days. Return to the ED as needed and as discussed Definitive disposition and diagnosis as appropriate pending reevaluation and review of above. Duration: Week(s):, Chronic Left Chest Pain Score (Numeric/FACES): 4 - Related Data Allergies Allergy/AdvReac Type Severity Reaction Status Date / Time Penicillins Allergy Mild Hives Verified 02/16/17 01:29 Home Meds: Home Meds Aspirin [Halfprin] 81 mg PO DAILY #10 tab.ec 01/22/16 [Rx] Escitalopram [Lexapro] 20 mg PO DAILY #10 tablet 01/22/16 [Rx] Levothyroxine Sodium 150 mcg PO ACBREAKFAST 07/19/16 [History] buPROPion HCl [Wellbutrin SR] 150 mg PO BID 07/19/16 [History] Pantoprazole [ProTONIX] 40 mg PO DAILY #14 tab.cr 10/06/16 [Rx] Albuterol/Ipratropium [Combivent Respimat] 1 puff INH ASDIRECTED 10/12/16 [ History] Lisinopril 2.5 mg PO DAILY 10/12/16 [History] Nitroglycerin 0.4 mg SL ASDIRECTED 10/12/16 [History] Simvastatin 1 tab PO DAILY 10/12/16 [History] Ondansetron [IMW: Ondansetron ODT] 1 tab PO DAILY 02/16/17 [History] Tiotropium [Spiriva Handihaler] 1 puff DAILY 02/16/17 [History] Past Medical History HEENT History: Reports: None Cardiovascular History: Reports: CAD, High Cholesterol, [place] Respiratory History: Reports: Asthma, COPD Gastrointestinal History: Reports: Pancreatitis Genitourinary History: Reports: None 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 History: Reports: None Musculoskeletal History: Reports: None Neurological History: Reports: None Psychiatric History: Reports: Addiction, Depression Endocrine/Metabolic History: Reports: Hypothyroidism Hematologic History: Reports: None Immunologic History: Reports: None Oncologic (Cancer) History: Reports: None Dermatologic History: Reports: None - Infectious Disease History Infectious Disease History: Reports: None - Past Surgical History Musculoskeletal Surgical History: Reports: Other (See Below) Social & Family History - Family History Family Medical History: Noncontributory HEENT: Reports: None Cardiac: Reports: None Respiratory: Reports: None GI: Reports: None : Reports: None OBGYN: Reports: None Musculoskeletal: Reports: None Neurological: Reports: None Psychiatric: Reports: None Endocrine/Metabolic: Reports: None Hematologic: Reports: None Immunologic: Reports: None Dermatologic: Reports: None Oncologic: Reports: None - Tobacco Use Smoking Status *Q: Current Every Day Smoker Years of Tobacco use: 20 Packs/Tins Daily: 2 Used Tobacco, but Quit: No Second Hand Smoke Exposure: No - Caffeine Use Caffeine Use: Reports: Coffee - Alcohol Use Days Per Week of Alcohol Use: 7 Number of Drinks Per Day: 6 Total Drinks Per Week: 42 - Recreational Drug Use Recreational Drug Use: No - Living Situation & Occupation Living situation: Reports: ED ROS GENERAL - Review of Systems Review Of Systems: ROS reveals no pertinent complaints other than HPI. Constitutional: Reports: Weakness. Denies: Fever, Chills, Diaphoresis Respiratory: Denies: Shortness of Breath, Cough Endocrine: Denies: Fatigue GI/Abdominal: Denies: Abdominal Pain : Denies: Dysuria Neurological: Denies: Dizziness, Headache ED EXAM, BEHAVIORAL HEALTH - Physical Exam Exam: See Below (See dictation) COURSE, BEHAVIORAL HEALTH COMP - Course Vital Signs: Last Vital Signs Temp 36.6 C 02/09/17 18:57 Pulse 77 02/09/17 18:57 Resp 19 02/09/17 18:57 BP 106/57 L 02/09/17 18:57 Pulse Ox 94 L 02/09/17 18:57 Orders, Labs, Meds: Laboratory Tests 02/09/17 02/09/17 02/09/17 Range/Units 15:50 15:50 19:02 WBC 7.83 (4.0-11.0) K/uL RBC 4.18 L (4.30-5.90) M/uL Hgb 14.2 (12.0-16.0) g/dL Hct 38.9 (36.0-46.0) % MCV 93.1 (80.0-98.0) fL MCH 34.0 H (27.0-32.0) pg MCHC 36.5 (31.0-37.0) g/dL RDW Std Deviation 48.5 (28.0-62.0) fl RDW Coeff of Ayleen 14 (11.0-15.0) % Plt Count 145 L (150-400) K/uL MPV 10.20 (7.40-12.00) fL Neut % (Auto) 74.2 (48.0-80.0) % Lymph % (Auto) 20.1 (16.0-40.0) % [place] % (Auto) 5.2 (0.0-15.0) % Eos % (Auto) 0.1 (0.0-7.0) % Baso % (Auto) 0.4 (0.0-1.5) % Neut # (Auto) 5.8 H (1.4-5.7) K/uL Lymph # (Auto) 1.6 (0.6-2.4) K/uL [place] # (Auto) 0.4 (0.0-0.8) K/uL Eos # (Auto) 0.0 (0.0-0.7) K/uL Baso # (Auto) 0.0 (0.0-0.1) K/uL Nucleated RBC % 0.0 /100WBC Nucleated RBCs # 0 K/uL Sodium 123 L (136-146) mmol/L Potassium 4.0 (3.5-5.1) mmol/L Chloride 88 L (98-110) mmol/L Carbon Dioxide 21 (21-31) mmol/L BUN 6 (6.0-23.0) mg/dL Creatinine 0.7 (0.6-1.5) mg/dL Est Cr Clr Drug Dosing TNP Estimated GFR (MDRD) > 60.0 ml/min Glucose 73 (60-110) mg/dL POC Glucose 82 (60-110) mg/dL Calcium 9.3 (8.8-10.8) mg/dL Magnesium 1.7 (1.5-2.3) mEq/L Total Bilirubin 0.7 (0.1-1.5) mg/dL AST 250 H (5-40) IU/L ALT 137 H (8-54) IU/L Alkaline Phosphatase 123 (40-150) Troponin I < 0.10 (0.0-0.29) NG/ML Total Protein 7.3 (6.0-8.0) g/dL Albumin 4.6 (3.4-4.8) g/dL Globulin 2.7 (2.0-3.5) g/dL Albumin/Globulin Ratio 1.7 (1.3-2.8) Ethyl Alcohol 223.7 mg/dL Medications Discontinued Medications Generic Name Dose Route Start Last Admin Trade Name Freq PRN Reason Stop Dose Admin Sodium Chloride 1,000 mls @ 999 mls/hr 02/09/17 15:35 02/09/17 16:00 Normal Saline IV 02/09/17 16:35 999 mls/hr STAT ONE Administration Multivitamins/Minerals 10 ml/ 1,011.2 mls @ 999 mls/hr 02/09/17 17:05 17:36 Thiamine HCl 100 mg/ Folic IV 02/09/17 18:05 999 mls/hr Acid 1 mg/ Sodium Chloride ONETIME ONE Administration Ondansetron HCl 4 mg 02/09/17 15:35 02/09/17 16:00 Zofran IVPUSH 02/09/17 15:36 4 mg ONETIME ONE Administration Departure - Departure Time of Disposition: 18:18 Disposition: Home, Self-Care 01 Clinical Impression: Alcohol abuse - Discharge Information Instructions: Alcohol Intoxication, [id number] Referrals: PCP,None [Primary Care Provider] - Forms: ED Department Discharge Additional Instructions: My general discharge The following information is given to patients seen in the emergency department who are being discharged to home. This information is to outline your options for follow-up care. We provide all patients seen in our emergency department with a follow-up referral. The need for follow-up, as well as the timing and circumstances, are variable depending upon the specifics of your emergency department visit. If you don't have a primary care physician on staff, we will provide you with a referral. We always advise you to contact your personal physician following an emergency department visit to inform them of the circumstance of the visit and for follow-up with them and/or the need for any referrals to a consulting specialist. The emergency department will also refer you to a specialist when appropriate. This referral assures that you have the opportunity for follow-up care with a specialist. All of these measure are taken in an effort to provide you with optimal care, which includes your follow-up. Under all circumstances we always encourage you to contact your private physician who remains a resource for coordinating your care. When calling for follow-up care, please make the office aware that this follow-up is from your recent emergency room visit. If for any reason you are refused follow-up, please contact the [facility] Emergency Department at and asked to speak to the emergency department charge nurse. [facility] [address] [place] [phone] 1. Stop drinking alcohol 2. Encourage plenty of nonalcoholic fluids and eat well-balanced meals throughout the day. 3. Follow-up with behavioral health/treatment facility for better management of your drinking. Follow-up with the primary caregiver in the next 1-2 days. Return to the ED as needed and as discussed
[2017-02-09 16:23] LABS: CHLORIDE,CL 88 mmol/L (98-110); SODIUM,NA 123 mmol/L (136-146)
[2017-02-09] MEDS ORDERED: MVI, Adult with Vitamin K 10 ML, Thiamine 100 MG, Folic Acid 1 MG in Sodium Chloride 0.... IV ONE ×4 (17:05)
[2017-02-09 18:58] VITALS: BP 106/57
== END 2017-02-09 19:14 | disposition home or self-care (01) ==
LOC: MW.ED 15:20
DX: F10.129 Alcohol abuse with intoxication, unspecified (principal); Y90.7 Blood alcohol level of 200-239 mg/100 ml; F17.210 Nicotine dependence, cigarettes, uncomplicated; E78.00 Pure hypercholesterolemia, unspecified; E03.9 Hypothyroidism, unspecified; Z79.899 Other long term (current) drug therapy
CPT/HCPCS: 36415; 80053; 82962; 83735; 84484; 85025; 93005; 96361; 96365; 96375; 99285; G0480; J2405; J3411; J7040; 99284

== ENCOUNTER 2017-02-15 15:48 | Inpatient (IN) | payer BC ==
[2017-02-15] MEDS ORDERED: MVI, Adult with Vitamin K 10 ML, Thiamine 100 MG, Folic Acid 1 MG in Sodium Chloride 0.... IV ONE ×4 (15:54)
--- NOTE | 2017-02-15 15:57 | EDM.PDOC ---
ED HPI GENERAL MEDICAL PROBLEM - General Stated Complaint: MENTAL EVAL Time Seen by Provider: 02/15/17 15:53 - History of Present Illness INITIAL COMMENTS - FREE TEXT/NARRATIVE: HISTORY AND PHYSICAL: History of present illness: Patient 61-year-old female presents with a concern of alcohol abuse and anxiety she has been seen many times in the past she is well-known to EMS and our emergency department she denies any other concern Review of systems: As per history of present illness and below otherwise all systems reviewed and negative. Past medical history: As per history of present illness and as reviewed below otherwise noncontributory. Surgical history: As per history of present illness and as reviewed below otherwise noncontributory. Social history: No reported history of drug or alcohol abuse. Family history: As per history of present illness and as reviewed below otherwise noncontributory. Physical exam: HEENT: Atraumatic, normocephalic, pupils reactive, negative for conjunctival pallor or scleral icterus, mucous membranes moist, throat clear, neck supple, nontender, trachea midline. Lungs: Clear to auscultation, breath sounds equal bilaterally, chest nontender. Heart: S1S2, regular, negative for clicks, rubs, or JVD. Abdomen: Soft, nondistended, nontender. Negative for masses or hepatosplenomegaly. Negative for costovertebral tenderness. Pelvis: Stable nontender. Genitourinary: Deferred. Rectal: Deferred. Extremities: Atraumatic, negative for cords or calf pain. Neurovascular unremarkable. Neuro: Awake, alert, oriented. Follows commands moves all extremities limited grossly nonfocal exam Diagnostics: CBC CMP EKG Therapeutics: Banana bag Impression: #1 alcohol abuse #2 anxiety Definitive disposition and diagnosis as appropriate pending reevaluation and review of above. Right Lower Abdomen Pain Score (Numeric/FACES): 3 Headache Pain Score (Numeric/FACES): 2 - Related Data Allergies Allergy/AdvReac Type Severity Reaction Status Date / Time Penicillins Allergy Mild Hives Verified 02/16/17 01:29 Home Meds: Home Meds Aspirin [Halfprin] 81 mg PO DAILY #10 tab.ec 01/22/16 [Rx] Escitalopram [Lexapro] 20 mg PO DAILY #10 tablet 01/22/16 [Rx] Levothyroxine Sodium 150 mcg PO ACBREAKFAST 07/19/16 [History] buPROPion HCl [Wellbutrin SR] 150 mg PO BID 07/19/16 [History] Pantoprazole [ProTONIX] 40 mg PO DAILY #14 tab.cr 10/06/16 [Rx] Albuterol/Ipratropium [Combivent Respimat] 1 puff INH ASDIRECTED 10/12/16 [ History] Lisinopril 2.5 mg PO DAILY 10/12/16 [History] Nitroglycerin 0.4 mg SL ASDIRECTED 10/12/16 [History] Simvastatin [Simvastatin] 1 tab PO DAILY 10/12/16 [History] Ondansetron [IMW: Ondansetron ODT] 1 tab PO DAILY 02/16/17 [History] Tiotropium [Spiriva Handihaler] 1 puff DAILY 02/16/17 [History] Past Medical History HEENT History: Reports: None Cardiovascular History: Reports: CAD, High Cholesterol, [place] Respiratory History: Reports: Asthma, COPD Gastrointestinal History: Reports: Pancreatitis Genitourinary History: Reports: None CONCAVER History: Reports: None Musculoskeletal History: Reports: None Neurological History: Reports: None Psychiatric History: Reports: Addiction, Depression Endocrine/Metabolic History: Reports: Hypothyroidism Hematologic History: Reports: None Immunologic History: Reports: None Oncologic (Cancer) History: Reports: None Dermatologic History: Reports: None - Infectious Disease History Infectious Disease History: Reports: None - Past Surgical History Musculoskeletal Surgical History: Reports: Other (See Below) Social & Family History - Family History Family Medical History: Noncontributory HEENT: Reports: None Cardiac: Reports: None Respiratory: Reports: None GI: Reports: None : Reports: None OBGYN: Reports: None Musculoskeletal: Reports: None Neurological: Reports: None Psychiatric: Reports: None Endocrine/Metabolic: Reports: None Hematologic: Reports: None Immunologic: Reports: None Dermatologic: Reports: None Oncologic: Reports: None - Tobacco Use Smoking Status *Q: Current Every Day Smoker Years of Tobacco use: 20 Packs/Tins Daily: 2 Used Tobacco, but Quit: No Second Hand Smoke Exposure: No - Caffeine Use Caffeine Use: Reports: Coffee - Alcohol Use Days Per Week of Alcohol Use: 7 Number of Drinks Per Day: 6 Total Drinks Per Week: 42 - Recreational Drug Use Recreational Drug Use: No - Living Situation & Occupation Living situation: Reports: ED ROS GENERAL - Review of Systems Review Of Systems: ROS reveals no pertinent complaints other than HPI. ED EXAM, GENERAL - Physical Exam Exam: See Below (See dictation) Course - Vital Signs Last Recorded V/S: Last Vital Signs Temp 36.7 C 02/16/17 20:00 Pulse 77 02/16/17 20:00 Resp 18 02/16/17 20:00 BP 119/77 02/16/17 20:00 Pulse Ox 91 L 02/16/17 20:00 - Orders/Labs/Meds Orders: Medication Orders Artificial Tears (Refresh Plus 0.5%) 1 each EYEBOTH ASDIRECTED PRN PRN Reason: Dry Eyes Last Admin: 02/16/17 21:22 Dose: 1 drop Enoxaparin Sodium (Lovenox) 40 mg SUBCUT Q24H [facility] Last Admin: 02/16/17 10:16 Dose: Folic Acid (Folic Acid) 1 mg PO DAILY [facility] Last Admin: 02/16/17 09:23 Dose: Ibuprofen (Motrin) 400 mg PO Q6H PRN PRN Reason: Headache/Pain Last Admin: 02/16/17 21:22 Dose: 400 mg Levothyroxine Sodium (Levothyroxine) 150 mcg PO ACBREAKFAST [facility] Last Admin: 02/16/17 09:22 Dose: Lorazepam (Ativan) 0 mg IVPUSH Q4H PRN; Protocol PRN Reason: Agitation Last Admin: 02/16/17 21:28 Dose: 1 mg Nicotine (Habitrol) 21 mg TRDERM DAILY [facility] Last Admin: 02/16/17 09:23 Dose: Admin: 02/16/17 03:04 Dose: 21 mg Ondansetron HCl (Zofran) 4 mg IVPUSH Q4H PRN PRN Reason: Nausea Last Admin: 02/16/17 03:05 Dose: 4 mg Pantoprazole Sodium (Protonix) 40 mg PO DAILY [facility] Last Admin: 02/16/17 09:24 Dose: Thiamine HCl (Vitamin B-1) 100 mg PO DAILY [facility] Last Admin: 02/16/17 09:24 Dose: Labs: Laboratory Tests 02/15/17 02/15/17 02/15/17 Range/Units 16:54 16:54 16:54 WBC 8.51 (4.0-11.0) K/uL RBC 4.51 (4.30-5.90) M/uL Hgb 15.2 (12.0-16.0) g/dL Hct 41.8 (36.0-46.0) % MCV 92.7 (80.0-98.0) fL MCH 33.7 H (27.0-32.0) pg MCHC 36.4 (31.0-37.0) g/dL RDW Std Deviation 49.5 (28.0-62.0) fl RDW Coeff of Ayleen 15 (11.0-15.0) % Plt Count 156 (150-400) K/uL MPV 11.40 (7.40-12.00) fL Neut % (Auto) 78.2 (48.0-80.0) % Lymph % (Auto) 17.2 (16.0-40.0) % Crosby % (Auto) 4.3 (0.0-15.0) % Eos % (Auto) 0.1 (0.0-7.0) % Baso % (Auto) 0.2 (0.0-1.5) % Neut # (Auto) 6.7 H (1.4-5.7) K/uL Lymph # (Auto) 1.5 (0.6-2.4) K/uL Crosby # (Auto) 0.4 (0.0-0.8) K/uL Eos # (Auto) 0.0 (0.0-0.7) K/uL Baso # (Auto) 0.0 (0.0-0.1) K/uL Nucleated RBC % 0.0 /100WBC Nucleated RBCs # 0 K/uL Sodium 121 L (136-146) mmol/L Potassium 4.4 (3.5-5.1) mmol/L Chloride 87 L (98-110) mmol/L Carbon Dioxide 20 L (21-31) mmol/L BUN 6 (6.0-23.0) mg/dL Creatinine 0.7 (0.6-1.5) mg/dL Est Cr Clr Drug Dosing 59.67 mL/min Estimated GFR (MDRD) > 60.0 ml/min Glucose 68 (60-110) mg/dL Calcium 9.1 (8.8-10.8) mg/dL Total Bilirubin 0.5 (0.1-1.5) mg/dL AST 339 H (5-40) IU/L ALT 156 H (8-54) IU/L Alkaline Phosphatase 145 (40-150) Total Protein 7.5 (6.0-8.0) g/dL Albumin 4.5 (3.4-4.8) g/dL Globulin 3.0 (2.0-3.5) g/dL Albumin/Globulin Ratio 1.5 (1.3-2.8) Salicylates < 5.0 (0-20) mg/dL Acetaminophen < 3.0 ug/mL Ethyl Alcohol 270.8 mg/dL Meds: Medications Generic Name Dose Route Start Last Admin Trade Name Freq PRN Reason Stop Dose Admin Artificial Tears 1 each 02/16/17 12:11 02/16/17 21:22 Refresh Plus 0.5% EYEBOTH 1 drop ASDIRECTED PRN Administration Dry Eyes Enoxaparin Sodium 40 mg 02/16/17 09:15 02/16/17 10:16 Lovenox SUBCUT Not Given Q24H [facility] Folic Acid 1 mg 02/16/17 09:00 02/16/17 09:23 Folic Acid PO Not Given DAILY [facility] Ibuprofen 400 mg 02/16/17 20:59 02/16/17 21:22 Motrin PO 400 mg Q6H PRN Administration Headache/Pain Levothyroxine Sodium 150 mcg 02/16/17 07:30 02/16/17 09:22 Levothyroxine PO Not Given ACBREAKFAST [facility] Lorazepam 0 mg 02/15/17 20:43 02/16/17 21:28 Ativan IVPUSH 1 mg Q4H PRN Administration Agitation Protocol Nicotine 21 mg 02/16/17 03:00 02/16/17 09:23 Habitrol TRDERM Not Given DAILY [facility] Ondansetron HCl 4 mg 02/15/17 21:00 02/16/17 03:05 Zofran IVPUSH 4 mg Q4H PRN Administration Nausea Pantoprazole Sodium 40 mg 02/16/17 09:00 02/16/17 09:24 Protonix PO Not Given DAILY [facility] Thiamine HCl 100 mg 02/16/17 09:00 02/16/17 09:24 Vitamin B-1 PO Not Given DAILY [facility] Discontinued Medications Generic Name Dose Route Start Last Admin Trade Name Freq PRN Reason Stop Dose Admin Multivitamins/Minerals 10 ml/ 1,011.2 mls @ 999 mls/hr 02/15/17 15:54 16:49 Thiamine HCl 100 mg/ Folic IV 02/15/17 16:54 999 mls/hr Acid 1 mg/ Sodium Chloride ONETIME ONE Administration Influenza Virus Vaccine 60 mcg 02/16/17 00:30 Fluarix Quad [id number] IM 02/16/17 00:31 .ONCE ONE Departure - Departure Time of Disposition: 21:58 Disposition: Admitted As Inpatient 65 Condition: Good Clinical Impression: Hyponatremia, Alcohol abuse - Discharge Information
[2017-02-15 17:42] LABS: ACETAMINOPHEN < 3.0 ug/mL; CHLORIDE,CL 87 mmol/L (98-110); SODIUM,NA 121 mmol/L (136-146)
--- NOTE | 2017-02-15 21:06 | PCM.HP ---
H&P History of Present Illness - General Admit Problem/Dx: Admission Diagnosis/Problem Admission Diagnosis/Problem Hyponatremia - History of Present Illness Initial Comments - Free Text/Narative: 61 yo female with pmh of alcohol abuse with prior admissions for ETOH detox and hyponatremia. She presents to the ED acutely intoxicated. She is concerned about seizures as she feels "shakey". She reports numbness to the face and hands. She reports she can normally talk herself out of having seizure but she wasn't able to talk herself down this time. She reports drinking at lest a gallon of liquor a day. Her last drink was 10 minutes before coming to the ED. - Related Data Allergies/Adverse Reactions: Allergies Allergy/AdvReac Type Severity Reaction Status Date / Time Penicillins Allergy Mild Hives Verified 02/16/17 01:29 Home Medications: Home Meds Aspirin [Halfprin] 81 mg PO DAILY #10 tab.ec 01/22/16 [Rx] Escitalopram [Lexapro] 20 mg PO DAILY #10 tablet 01/22/16 [Rx] Levothyroxine Sodium 150 mcg PO ACBREAKFAST 07/19/16 [History] buPROPion HCl [Wellbutrin SR] 150 mg PO BID 07/19/16 [History] Pantoprazole [ProTONIX] 40 mg PO DAILY #14 tab.cr 10/06/16 [Rx] Albuterol/Ipratropium [Combivent Respimat] 1 puff INH ASDIRECTED 10/12/16 [ History] Lisinopril 2.5 mg PO DAILY 10/12/16 [History] Nitroglycerin 0.4 mg SL ASDIRECTED 10/12/16 [History] Simvastatin [Simvastatin] 1 tab PO DAILY 10/12/16 [History] Ondansetron [IMW: Ondansetron ODT] 1 tab PO DAILY 02/16/17 [History] Tiotropium [Spiriva Handihaler] 1 puff DAILY 02/16/17 [History] Past Medical History HEENT History: Reports: None Cardiovascular History: Reports: CAD, High Cholesterol, [place] Respiratory History: Reports: Asthma, COPD Gastrointestinal History: Reports: Pancreatitis Genitourinary History: Reports: None [employer] History: Reports: None Musculoskeletal History: Reports: None Neurological History: Reports: None Psychiatric History: Reports: Addiction, Depression Endocrine/Metabolic History: Reports: Hypothyroidism Hematologic History: Reports: None Immunologic History: Reports: None Oncologic (Cancer) History: Reports: None Dermatologic History: Reports: None - Infectious Disease History Infectious Disease History: Reports: None - Past Surgical History Musculoskeletal Surgical History: Reports: Other (See Below) Social & Family History - Family History Family Medical History: Noncontributory HEENT: Reports: None Cardiac: Reports: None Respiratory: Reports: None GI: Reports: None : Reports: None OBGYN: Reports: None Musculoskeletal: Reports: None Neurological: Reports: None Psychiatric: Reports: None Endocrine/Metabolic: Reports: None Hematologic: Reports: None Immunologic: Reports: None Dermatologic: Reports: None Oncologic: Reports: None - Tobacco Use Smoking Status *Q: Current Every Day Smoker Years of Tobacco use: 40 Packs/Tins Daily: 3 Used Tobacco, but Quit: No Second Hand Smoke Exposure: No - Caffeine Use Caffeine Use: Reports: None - Alcohol Use Days Per Week of Alcohol Use: 7 Number of Drinks Per Day: 6 Total Drinks Per Week: 42 - Recreational Drug Use Recreational Drug Use: No - Living Situation & Occupation Living situation: Reports: H&P Review of Systems - Review of Systems: Review Of Systems: ROS reveals no pertinent complaints other than HPI. Exam - Exam Exam: See Below - Vital Signs Vital Signs: Last Vital Signs Temp 36.1 C 02/15/17 16:00 Pulse 75 02/15/17 20:18 Resp 16 02/15/17 20:18 BP 118/68 02/15/17 20:18 Pulse Ox 93 L 02/15/17 20:18 Weight: 45.359 kg - Exam General: Alert, Oriented HEENT: Mucosa Moist & [place] Lungs: Clear to Auscultation, Normal Respiratory Effort Cardiovascular: Regular Rate, Regular Rhythm GI/Abdominal Exam: Normal Bowel Sounds, Soft, Non-Tender Extremities: Normal Inspection Skin: Warm, Dry, Intact Neurological: Cranial Nerves Intact, Strength Equal Bilateral, Normal Speech, Sensation Intact (on face and arms). No: Focal Deficit Psychiatric: Anxious. No: Suicidal Ideation, Homicidal Ideation, Hallucinations - Patient Data Lab Results Last 24 hrs: Laboratory Results - last 24 hr 02/15/17 Range/Units 18:30 Urine Opiates Screen NEGATIVE (NEGATIVE) Ur Oxycodone Screen NEGATIVE (NEGATIVE) Urine Methadone Screen NEGATIVE (NEGATIVE) Ur Barbiturates Screen NEGATIVE (NEGATIVE) Ur Phencyclidine Scrn NEGATIVE (NEGATIVE) Ur Amphetamine Screen NEGATIVE (NEGATIVE) U Methamphetamines Scrn NEGATIVE (NEGATIVE) U Benzodiazepines Scrn NEGATIVE (NEGATIVE) U Cocaine Metab Screen NEGATIVE (NEGATIVE) U Marijuana (THC) Screen NEGATIVE (NEGATIVE) Result Diagrams: 02/15/17 16:54 02/17/17 04:35 *Q Meaningful Use (ADM) - VTE *Q VTE Criteria *Q: - Stroke *Q Stroke Criteria *Q: - AMI *Q AMI Criteria *Q: Problem List Initiated/Reviewed/Updated: Yes Orders Last 24hrs: Active Orders 24 hr Category Date Time Status Antiembolic Devices [RC] PER UNIT ROUTINE Care 02/15/17 21:01 Ordered Oxygen Therapy [RC] PRN Care 02/15/17 21:00 Ordered VTE/DVT Education [RC] PER UNIT ROUTINE Care 02/15/17 21:00 Ordered Vital Signs [RC] Q4H Care 02/15/17 21:00 Ordered Regular Diet [DIET] Diet 02/15/17 Breakfast Ordered BMP [BASIC METABOLIC PANEL,BMP] [CHEM] Q5H Lab 02/15/17 20:48 Ordered BMP [BASIC METABOLIC PANEL,BMP] [CHEM] Q5H Lab 02/16/17 01:48 Ordered BMP [BASIC METABOLIC PANEL,BMP] [CHEM] Q5H Lab 02/16/17 06:48 Ordered Folic Acid Med 02/16/17 09:00 Active 1 mg PO DAILY LORazepam [Ativan] Med 02/15/17 20:43 Active See Protocol IVPUSH Q4H PRN Levothyroxine Med 02/16/17 07:30 Active 150 mcg PO ACBREAKFAST Ondansetron [Zofran] Med 02/15/17 21:00 Ordered 4 mg IVPUSH Q4H PRN Pantoprazole [ProTONIX] Med 02/16/17 09:00 Active 40 mg PO DAILY Thiamine [Vitamin B-1] Med 02/16/17 09:00 Active 100 mg PO DAILY Sequential Compression Device [OM.PC] Per Unit Routine Oth 02/15/17 21:00 Ordered Medication Orders Folic Acid (Folic Acid) 1 mg PO DAILY [facility] Levothyroxine Sodium (Levothyroxine) 150 mcg PO ACBREAKFAST [facility] Lorazepam (Ativan) 0 mg IVPUSH Q4H PRN; Protocol PRN Reason: Agitation Pantoprazole Sodium (Protonix) 40 mg PO DAILY [facility] Thiamine HCl (Vitamin B-1) 100 mg PO DAILY [facility] Assessment/Plan Comment:: 61 yo female admitted for alcohol intoxication. PAtient has received a banana bag. We will monitor her sodium. We will place on Ativan prn CIWA protocol with thiamin and folic acid.
[2017-02-15 22:01] LABS: CHLORIDE,CL 96 mmol/L (98-110); SODIUM,NA 130 mmol/L (136-146)
[2017-02-16] MEDS ORDERED: FLU Vacc QS 2017-18 (36mos UP)/PF 60 MCG/0.5 ML Syringe IM ONE (00:30)
[2017-02-16 02:26] LABS: CHLORIDE,CL 99 mmol/L (98-110); SODIUM,NA 132 mmol/L (136-146)
[2017-02-16] MEDS: Nicotine 21 MG/24 Hr Patch TRDERM SCH ×2 (03:04→09:23)
[2017-02-16] MEDS: Ondansetron 4 MG/2 ML SDV IVPUSH PRN (03:05)
[2017-02-16 07:31] LABS: CHLORIDE,CL 97 mmol/L (98-110); SODIUM,NA 131 mmol/L (136-146)
[2017-02-16] MEDS: Levothyroxine 150 MCG Tab PO SCH (09:22)
[2017-02-16] MEDS: Folic Acid 1 MG Tab PO SCH (09:23)
[2017-02-16] MEDS: Pantoprazole 40 MG Tab.CR PO SCH (09:24)
[2017-02-16] MEDS: Thiamine 100 MG Tab PO SCH (09:24)
[2017-02-16] MEDS: Enoxaparin 40 MG/0.4 ML Syringe SUBCUT SCH (10:16)
--- NOTE | 2017-02-16 10:56 | CR ---
EXAM DATE: 02/15/17 PATIENT'S AGE: 61 Patient: MARS BROWN Facility: [place], [place] Site . Site : 1955 Study: XRay Chest [id number] 6:33:33 PM Ordering Physician: Joshua Wei Final Report: INDICATION: chest pain CHEST, ONE VIEW An AP radiograph of the chest was performed. Comparison: No previous studies are currently available for comparison. The lungs appear clear and no pleural effusions are identified. The cardiomediastinal silhouette and pulmonary vasculature appear normal, as do the visualized bones aside from left clavicle postop changes, as before. IMPRESSION: No acute intrathoracic abnormality identified. AGUSTÍN CUELLO MD [employer] Dictated by: Jitendra Cuello MD @ 02/15/2017 19:21:09 (Electronic Signature) Report Signed [facility] Proxy. [facility]
--- NOTE | 2017-02-16 12:20 | PCM.PN ---
- General Info Date of Service: 02/16/17 Subjective Update: 61-year-old female with a past medical history significant for chronic alcoholism, was admitted to our ICU last night for acute on: Intoxication and possible withdrawals. She was also found to be hyponatremic. Talk to the patient this morning, she complains of nausea, generalized shakiness. She also tells me she doesn't feel good overall. No other specific complaints. It looks like her sodium has improved slightly up to 131. - Review of Systems General: Reports: Other (See history of present illness) - Patient Data Vitals - Most Recent: Last Vital Signs Temp 36.9 C 02/16/17 04:00 Pulse 88 02/16/17 06:00 Resp 12 02/16/17 06:00 BP 130/79 02/16/17 06:00 Pulse Ox 94 L 02/16/17 06:30 Weight - Most Recent: 46.2 kg I&O - Last 24 Hours: Intake & Output 02/15/17 02/16/17 02/16/17 22:59 06:59 14:59 Intake Total 100 Output Total 400 Balance -300 Lab Results Last 24 Hours: Laboratory Results - last 24 hr 02/15/17 02/15/17 02/16/17 Range/Units 18:30 21:16 01:54 Sodium 130 L 132 L (136-146) mmol/L Potassium 3.7 4.0 (3.5-5.1) mmol/L Chloride 96 L 99 (98-110) mmol/L Carbon Dioxide 21 20 L (21-31) mmol/L BUN 5 L 5 L (6.0-23.0) mg/dL Creatinine 0.7 0.7 (0.6-1.5) mg/dL Est Cr Clr Drug Dosing 59.67 59.67 mL/min Estimated GFR (MDRD) > 60.0 > 60.0 ml/min Glucose 91 79 (60-110) mg/dL Calcium 8.9 9.1 (8.8-10.8) mg/dL Urine Opiates Screen NEGATIVE (NEGATIVE) Ur Oxycodone Screen NEGATIVE (NEGATIVE) Urine Methadone Screen NEGATIVE (NEGATIVE) Ur Barbiturates Screen NEGATIVE (NEGATIVE) Ur Phencyclidine Scrn NEGATIVE (NEGATIVE) Ur Amphetamine Screen NEGATIVE (NEGATIVE) U Methamphetamines Scrn NEGATIVE (NEGATIVE) U Benzodiazepines Scrn NEGATIVE (NEGATIVE) U Cocaine Metab Screen NEGATIVE (NEGATIVE) U Marijuana (THC) Screen NEGATIVE (NEGATIVE) 02/16/17 Range/Units 06:42 Sodium 131 L (136-146) mmol/L Potassium 4.1 (3.5-5.1) mmol/L Chloride 97 L (98-110) mmol/L Carbon Dioxide 23 (21-31) mmol/L BUN 6 (6.0-23.0) mg/dL Creatinine 0.8 (0.6-1.5) mg/dL Est Cr Clr Drug Dosing 53.18 mL/min Estimated GFR (MDRD) > 60.0 ml/min Glucose 82 (60-110) mg/dL Calcium 9.5 (8.8-10.8) mg/dL Urine Opiates Screen (NEGATIVE) Ur Oxycodone Screen (NEGATIVE) Urine Methadone Screen (NEGATIVE) Ur Barbiturates Screen (NEGATIVE) Ur Phencyclidine Scrn (NEGATIVE) Ur Amphetamine Screen (NEGATIVE) U Methamphetamines Scrn (NEGATIVE) U Benzodiazepines Scrn (NEGATIVE) U Cocaine Metab Screen (NEGATIVE) U Marijuana (THC) Screen (NEGATIVE) Med Orders - Current: Current Medications Artificial Tears (Refresh Plus 0.5%) 1 each EYEBOTH ASDIRECTED PRN PRN Reason: Dry Eyes Enoxaparin Sodium (Lovenox) 40 mg SUBCUT Q24H [facility] Last Admin: 02/16/17 10:16 Dose: Not Given Folic Acid (Folic Acid) 1 mg PO DAILY [facility] Last Admin: 02/16/17 09:23 Dose: Not Given Levothyroxine Sodium (Levothyroxine) 150 mcg PO ACBREAKFAST [facility] Last Admin: 02/16/17 09:22 Dose: Not Given Lorazepam (Ativan) 0 mg IVPUSH Q4H PRN; Protocol PRN Reason: Agitation Nicotine (Habitrol) 21 mg TRDERM DAILY [facility] Last Admin: 02/16/17 09:23 Dose: Not Given Ondansetron HCl (Zofran) 4 mg IVPUSH Q4H PRN PRN Reason: Nausea Last Admin: 02/16/17 03:05 Dose: 4 mg Pantoprazole Sodium (Protonix) 40 mg PO DAILY [facility] Last Admin: 02/16/17 09:24 Dose: Not Given Thiamine HCl (Vitamin B-1) 100 mg PO DAILY [facility] Last Admin: 02/16/17 09:24 Dose: Not Given Discontinued Medications Multivitamins/Minerals 10 ml/Thiamine HCl 100 mg/ Folic Acid 1 mg/ Sodium Chloride 1,011.2 mls @ 999 mls/hr IV ONETIME ONE Stop: 02/15/17 16:54 Last Admin: 02/15/17 16:49 Dose: 999 mls/hr Influenza Virus Vaccine (Fluarix Quad [id number]) 60 mcg IM .ONCE ONE Stop: 02/16/17 00:31 - Exam Quality Assessment: Supplemental Oxygen General: Alert, Oriented, Other (Oriented to person place time) HEENT: Pupils Equal, Pupils Reactive, EOMI, Mucous Membr. Moist/[place]. No: Scleral Icterus Neck: Supple, Trachea Midline. No: Lymphadenopathy Lungs: Clear to Auscultation, Normal Respiratory Effort Cardiovascular: Regular Rate, Regular Rhythm GI/Abdominal Exam: Normal Bowel Sounds, Soft Extremities: Normal Inspection, No Pedal Edema, Normal Capillary Refill Peripheral Pulses: 2+: Dorsalis Pedis (L), Dorsalis Pedis (R) Skin: Warm, Intact Neurological: Other (Generalized tremor bilaterally on a stretch end. Normal speech) Psy/Mental Status: Alert, Normal Affect, Normal Mood - Problem List Review Problem List Initiated/Reviewed/Updated: Yes - My Orders Last 24 Hours: My Active Orders 02/16/17 09:15 Enoxaparin [Lovenox] 40 mg SUBCUT Q24H 02/16/17 12:11 Carboxymethylcellulose Sodium [Refresh Plus 0.5%] 1 each EYEBOTH ASDIRECTED PRN - Plan Plan:: #1. Acute alcohol withdrawals with a CIWA score of 6 #2. Hyponatremia that is improving #3. Bilateral hand tremor secondary to #1 #4. Nausea secondary to #1 Plan: 1. Continue detox protocol with when necessary Ativan. Patient expressed that she would like to stay and detox here. She told that she is looking at inpatient detox programs in a different state. She tells me that she is going to [place] in the past, and she is currently looking at a place in [place]. 2. Thiamine and folic acid 3. Recheck BMP in the morning
[2017-02-16 16:31] LABS: CHLORIDE,CL 97 mmol/L (98-110); SODIUM,NA 132 mmol/L (136-146)
[2017-02-16] MEDS: Ibuprofen 400 MG Tab PO PRN (21:22)
[2017-02-16] MEDS: Carboxymethylcellulose Sodium 0.5% Ophth Soln 0.4 ML UD Box of 30 EYEBOTH PRN (21:22)
[2017-02-16] MEDS: LORazepam 2 MG/ML SDV IVPUSH PRN (21:28)
[2017-02-17 05:37] LABS: CHLORIDE,CL 99 mmol/L (98-110); SODIUM,NA 133 mmol/L (136-146)
[2017-02-17] MEDS: Levothyroxine 150 MCG Tab PO SCH (06:43)
[2017-02-17] MEDS: Thiamine 100 MG Tab PO SCH (08:01)
[2017-02-17] MEDS: Pantoprazole 40 MG Tab.CR PO SCH (08:01)
[2017-02-17] MEDS: Folic Acid 1 MG Tab PO SCH (08:01)
[2017-02-17] MEDS: Nicotine 21 MG/24 Hr Patch TRDERM SCH (08:07)
[2017-02-17] MEDS: Carboxymethylcellulose Sodium 0.5% Ophth Soln 0.4 ML UD Box of 30 EYEBOTH PRN ×2 (08:08→12:31)
[2017-02-17] MEDS: Enoxaparin 40 MG/0.4 ML Syringe SUBCUT SCH (09:00)
--- NOTE | 2017-02-17 15:12 | PCM.PN ---
- General Info Date of Service: 02/17/17 Subjective Update: Transferred to the regular floor yesterday. Talking to the patient this morning , she states that she feels better. She however complains of an unsteady gait requiring a cam Walker. She denies any nausea, shakiness, vomiting, palpitations. She has no other complaints - Review of Systems General: Reports: Other (See history of present illness) - Patient Data Vitals - Most Recent: Last Vital Signs Temp 36.5 C 02/17/17 11:37 Pulse 80 02/17/17 11:37 Resp 16 02/17/17 11:37 BP 141/92 H 02/17/17 11:37 Pulse Ox 97 02/17/17 11:37 Weight - Most Recent: 46.2 kg I&O - Last 24 Hours: Intake & Output 02/17/17 02/17/17 02/17/17 06:59 14:59 22:59 Intake Total 650 Output Total 250 Balance 400 Lab Results Last 24 Hours: Laboratory Results - last 24 hr 02/16/17 02/17/17 Range/Units 15:59 04:35 Sodium 132 L 133 L (136-146) mmol/L Potassium 4.4 4.3 (3.5-5.1) mmol/L Chloride 97 L 99 (98-110) mmol/L Carbon Dioxide 24 24 (21-31) mmol/L BUN 13 17 (6.0-23.0) mg/dL Creatinine 0.8 0.7 (0.6-1.5) mg/dL Est Cr Clr Drug Dosing 53.18 60.78 mL/min Estimated GFR (MDRD) > 60.0 > 60.0 ml/min Glucose 103 88 (60-110) mg/dL Calcium 10.1 9.6 (8.8-10.8) mg/dL Med Orders - Current: Current Medications Artificial Tears (Refresh Plus 0.5%) 1 each EYEBOTH ASDIRECTED PRN PRN Reason: Dry Eyes Last Admin: 02/17/17 12:31 Dose: 1 applic Enoxaparin Sodium (Lovenox) 40 mg SUBCUT Q24H [facility] Last Admin: 02/17/17 09:00 Dose: 40 mg Folic Acid (Folic Acid) 1 mg PO DAILY [facility] Last Admin: 02/17/17 08:01 Dose: 1 mg Ibuprofen (Motrin) 400 mg PO Q6H PRN PRN Reason: Headache/Pain Last Admin: 02/16/17 21:22 Dose: 400 mg Levothyroxine Sodium (Levothyroxine) 150 mcg PO ACBREAKFAST [facility] Last Admin: 02/17/17 06:43 Dose: 150 mcg Lorazepam (Ativan) 0 mg IVPUSH Q4H PRN; Protocol PRN Reason: Agitation Last Admin: 02/16/17 21:28 Dose: 1 mg Nicotine (Habitrol) 21 mg TRDERM DAILY [facility] Last Admin: 02/17/17 08:07 Dose: 21 mg Ondansetron HCl (Zofran) 4 mg IVPUSH Q4H PRN PRN Reason: Nausea Last Admin: 02/16/17 03:05 Dose: 4 mg Pantoprazole Sodium (Protonix) 40 mg PO DAILY [facility] Last Admin: 02/17/17 08:01 Dose: 40 mg Thiamine HCl (Vitamin B-1) 100 mg PO DAILY [facility] Last Admin: 02/17/17 08:01 Dose: 100 mg Discontinued Medications Multivitamins/Minerals 10 ml/Thiamine HCl 100 mg/ Folic Acid 1 mg/ Sodium Chloride 1,011.2 mls @ 999 mls/hr IV ONETIME ONE Stop: 02/15/17 16:54 Last Admin: 02/15/17 16:49 Dose: 999 mls/hr Influenza Virus Vaccine (Fluarix Quad [id number]) 60 mcg IM .ONCE ONE Stop: 02/16/17 00:31 - Exam Quality Assessment: No: Supplemental Oxygen General: Alert, Oriented, Cooperative, No Acute Distress HEENT: Pupils Equal, Pupils Reactive, EOMI Neck: Supple Lungs: Clear to Auscultation, Normal Respiratory Effort Cardiovascular: Regular Rate, Regular Rhythm GI/Abdominal Exam: Normal Bowel Sounds, Soft, No Organomegaly Extremities: Normal Inspection, Normal Capillary Refill Skin: Warm, Intact Neurological: Other (Mild bilateral hand tremor that has improved from yesterday on outstretched arms) Psy/Mental Status: Alert, Normal Affect, Normal Mood - Problem List Review Problem List Initiated/Reviewed/Updated: Yes - My Orders Last 24 Hours: My Active Orders 02/16/17 15:05 Transfer Patient (Change bed) [ADT] Routine - Plan Plan:: #1. Acute alcohol withdrawals with a CIWA score of 5 #2. Hyponatremia that is improving #3. Bilateral hand tremor secondary to #1 #4. Nausea has improved Plan: 1. Continue detox protocol with when necessary Ativan. Patient expressed that she would like to stay and detox here. She told that she is looking at inpatient detox programs in a different state. She tells me that she is going to [place] in the past, and she is currently looking at a place in [place]. 2. Thiamine and folic acid #3. PT evaluation for ambulation Anticipate discharge tomorrow
[2017-02-17] MEDS: LORazepam 2 MG/ML SDV IVPUSH PRN (16:37)
[2017-02-17] MEDS ORDERED: COMBIVENT RESPIMAT INH SCH (17:15)
[2017-02-17] MEDS ORDERED: Nitroglycerin 0.4 MG Tab.SL SL SCH (17:15)
[2017-02-17] MEDS ORDERED: diphenhydrAMINE 25 MG Cap PO PRN (17:32)
[2017-02-17] MEDS: Ondansetron 4 MG/2 ML SDV IVPUSH PRN (21:07)
[2017-02-17] MEDS: buPROPion 150 MG Tab.SR PO SCH (21:07)
[2017-02-18] MEDS: Ibuprofen 400 MG Tab PO PRN (01:27)
[2017-02-18] MEDS: Carboxymethylcellulose Sodium 0.5% Ophth Soln 0.4 ML UD Box of 30 EYEBOTH PRN ×2 (01:28→10:34)
[2017-02-18 06:23] LABS: CHLORIDE,CL 94 mmol/L (98-110); SODIUM,NA 130 mmol/L (136-146)
[2017-02-18] MEDS: Levothyroxine 150 MCG Tab PO SCH (06:39)
[2017-02-18] MEDS: Folic Acid 1 MG Tab PO SCH (08:21)
[2017-02-18] MEDS: Thiamine 100 MG Tab PO SCH (08:21)
[2017-02-18] MEDS: Pantoprazole 40 MG Tab.CR PO SCH (08:21)
[2017-02-18] MEDS: buPROPion 150 MG Tab.SR PO SCH (08:21)
[2017-02-18 08:22] VITALS: BP 148/91
[2017-02-18] MEDS: Enoxaparin 40 MG/0.4 ML Syringe SUBCUT SCH (08:33)
[2017-02-18] MEDS ORDERED: Lisinopril 5 MG Tab PO SCH (09:00)
[2017-02-18] MEDS ORDERED: Simvastatin 20 MG Tab PO SCH (09:00)
[2017-02-18] MEDS ORDERED: Escitalopram 10 MG Tab PO SCH (09:00)
[2017-02-18] MEDS: Nicotine 21 MG/24 Hr Patch TRDERM SCH (10:34)
--- NOTE | 2017-02-18 11:59 | PCM.DCSUM1 ---
<Compa Segura - Last Filed: 02/18/17 11:54> Discharge Summary - Hospital Course Free Text/Narrative:: Admission date February 15, 2017 Discharge date February 18, 2017 Admission diagnosis #1. Alcohol intoxication #2. Hyponatremia #3. History of chronic alcoholism #4. History of depression, anxiety, insomnia Discharge diagnosis #1. Acute alcohol intoxication resolved #2. Acute alcohol withdrawal is resolved #3. History of chronic hyponatremia that is stable and asymptomatic #4. History of depression, anxiety, insomnia Hospital course 61-year-old female that was admitted to our service and initially to the ICU secondary to acute alcohol intoxication wanting detox. Patient was admitted to the ICU and followed Ativan protocol. She was given IV fluids. Patient detoxed off of the alcohol safely without any complications. She was then transferred to the regular floor. The following few days the patient continued to complain of generalized inability to hold her balance and walk. She was then evaluated by physical therapy before discharge who deemed that she is able to walk without a walker. The patient is able to take care of herself, as she lives alone. She told me that she plans on going to her brother's house in [place] who can support her and keep her sober. Patient was then ultimately discharged with a walker secondary to her fear of ambulatory dysfunction. She had no other questions or concerns of the time discharge. She had no other complaints. She denied all symptoms such as hallucinations, seizure activity, palpitations, chills, shakiness. Disposition: To home Follow up with primary care provider in within 1 week Patient was advised to refrain from drinking any alcohol. Continue home medications as is. - Discharge Data Discharge Date: 02/18/17 Discharge Disposition: Home, Self-Care 01 Condition: Stable - Patient Summary/Data Consults: Consultations 02/17/17 09:31 Consult to Physical Therapy [PT Evaluation and Treatment] [CONS] Routine - Patient Instructions Diet: No Alcoholic Beverages Activity: As Tolerated Driving: Do Not Drive Showering/Bathing: May Shower Notify Provider of: Nausea and/or Vomiting - Discharge Plan Home Medications: Home Meds Aspirin [Halfprin] 81 mg PO DAILY #10 tab.ec 01/22/16 [Rx] Escitalopram [Lexapro] 20 mg PO DAILY #10 tablet 01/22/16 [Rx] Levothyroxine Sodium 150 mcg PO ACBREAKFAST 07/19/16 [History] buPROPion HCl [Wellbutrin SR] 150 mg PO BID 07/19/16 [History] Pantoprazole [ProTONIX] 40 mg PO DAILY #14 tab.cr 10/06/16 [Rx] Albuterol/Ipratropium [Combivent Respimat] 1 puff INH ASDIRECTED 10/12/16 [ History] Lisinopril 2.5 mg PO DAILY 10/12/16 [History] Nitroglycerin 0.4 mg SL ASDIRECTED 10/12/16 [History] Simvastatin 1 tab PO DAILY 10/12/16 [History] Ondansetron [IMW: Ondansetron ODT] 1 tab PO DAILY 02/16/17 [History] Tiotropium [Spiriva Handihaler] 1 puff DAILY 02/16/17 [History] Patient Handouts: Alcohol Intoxication, [id number] Referrals: Tyrel Youssef MD [Physician] - 02/25/17 12:00 pm - Discharge Summary/Plan Comment DC Time >30 min.: No Discharge Summary/Plan Comment: Admission date February 15, 2017 Discharge date February 18, 2017 Admission diagnosis #1. Alcohol intoxication #2. Hyponatremia #3. History of chronic alcoholism #4. History of depression, anxiety, insomnia Discharge diagnosis #1. Acute alcohol intoxication resolved #2. Acute alcohol withdrawal is resolved #3. History of chronic hyponatremia that is stable and asymptomatic #4. History of depression, anxiety, insomnia Hospital course 61-year-old female that was admitted to our service and initially to the ICU secondary to acute alcohol intoxication wanting detox. Patient was admitted to the ICU and followed Ativan protocol. She was given IV fluids. Patient detoxed off of the alcohol safely without any complications. She was then transferred to the regular floor. The following few days the patient continued to complain of generalized inability to hold her balance and walk. She was then evaluated by physical therapy before discharge who deemed that she is able to walk without a walker. The patient is able to take care of herself, as she lives alone. She told me that she plans on going to her brother's house in [place] who can support her and keep her sober. Patient was then ultimately discharged with a walker secondary to her fear of ambulatory dysfunction. She had no other questions or concerns of the time discharge. She had no other complaints. She denied all symptoms such as hallucinations, seizure activity, palpitations, chills, shakiness. Disposition: To home Follow up with primary care provider in within 1 week Patient was advised to refrain from drinking any alcohol. Continue home medications as is. - Patient Data Vitals - Most Recent: Last Vital Signs Temp 36.6 C 02/18/17 08:00 Pulse 81 02/18/17 08:00 Resp 22 H 02/18/17 08:00 BP 139/90 02/18/17 08:18 Pulse Ox 95 02/18/17 08:00 Weight - Most Recent: 45.359 kg I&O - Last 24 hours: Intake & Output 02/17/17 02/18/17 02/18/17 22:59 06:59 14:59 Intake Total 700 486 Output Total 350 1610 Balance 350 -1124 Lab Results - Last 24 hrs: Laboratory Results - last 24 hr 02/18/17 Range/Units 04:51 Sodium 130 L (136-146) mmol/L Potassium 4.4 (3.5-5.1) mmol/L Chloride 94 L (98-110) mmol/L Carbon Dioxide 25 (21-31) mmol/L BUN 15 (6.0-23.0) mg/dL Creatinine 0.8 (0.6-1.5) mg/dL Est Cr Clr Drug Dosing 52.21 mL/min Estimated GFR (MDRD) > 60.0 ml/min Glucose 81 (60-110) mg/dL Calcium 9.5 (8.8-10.8) mg/dL Med Orders - Current: Current Medications Artificial Tears (Refresh Plus 0.5%) 1 each EYEBOTH ASDIRECTED PRN PRN Reason: Dry Eyes Last Admin: 02/18/17 10:34 Dose: 1 applic Bupropion HCl (Wellbutrin Sr) 150 mg PO BID [facility] Last Admin: 02/18/17 08:21 Dose: 150 mg Diphenhydramine HCl (Benadryl) 25 mg PO BEDTIME PRN PRN Reason: Insomnia Last Admin: 02/18/17 01:28 Dose: 25 mg Enoxaparin Sodium (Lovenox) 40 mg SUBCUT Q24H [facility] Last Admin: 02/18/17 08:33 Dose: 40 mg Escitalopram Oxalate (Lexapro) 20 mg PO DAILY [facility] Last Admin: 02/18/17 08:31 Dose: 20 mg Folic Acid (Folic Acid) 1 mg PO DAILY [facility] Last Admin: 02/18/17 08:21 Dose: 1 mg Ibuprofen (Motrin) 400 mg PO Q6H PRN PRN Reason: Headache/Pain Last Admin: 02/18/17 01:27 Dose: 400 mg Levothyroxine Sodium (Levothyroxine) 150 mcg PO ACBREAKFAST [facility] Last Admin: 02/18/17 06:39 Dose: 150 mcg Lisinopril (Prinivil) 2.5 mg PO DAILY [facility] Last Admin: 02/18/17 08:18 Dose: 2.5 mg Lorazepam (Ativan) 0 mg IVPUSH Q4H PRN; Protocol PRN Reason: Agitation Last Admin: 02/17/17 16:37 Dose: 1 mg Nicotine (Habitrol) 21 mg TRDERM DAILY [facility] Last Admin: 02/18/17 10:34 Dose: 21 mg Nitroglycerin (Nitrostat) 0.4 mg SL ASDIRECTED [facility] Ondansetron HCl (Zofran) 4 mg IVPUSH Q4H PRN PRN Reason: Nausea Last Admin: 02/17/17 21:07 Dose: 4 mg Pantoprazole Sodium (Protonix) 40 mg PO DAILY [facility] Last Admin: 02/18/17 08:21 Dose: 40 mg Combivent Respimat 1 (Puff) 1 each INH ASDIRECTED [facility] Simvastatin (Zocor) 20 mg PO DAILY [facility] Last Admin: 02/18/17 08:21 Dose: 20 mg Thiamine HCl (Vitamin B-1) 100 mg PO DAILY [facility] Last Admin: 02/18/17 08:21 Dose: 100 mg Discontinued Medications Multivitamins/Minerals 10 ml/Thiamine HCl 100 mg/ Folic Acid 1 mg/ Sodium Chloride 1,011.2 mls @ 999 mls/hr IV ONETIME ONE Stop: 02/15/17 16:54 Last Admin: 02/15/17 16:49 Dose: 999 mls/hr Influenza Virus Vaccine (Fluarix Quad [id number]) 60 mcg IM .ONCE ONE Stop: 02/16/17 00:31 *Q Meaningful Use (DIS) - VTE *Q VTE Criteria *Q: - Stroke *Q Stroke Criteria *Q: - AMI *Q AMI Criteria *Q: <Amadeo Castillo Frank - Last Filed: 02/21/17 14:11> Discharge Summary - Patient Summary/Data Consults: Consultations 02/17/17 09:31 Consult to Physical Therapy [PT Evaluation and Treatment] [CONS] Routine - Patient Data Vitals - Most Recent: Last Vital Signs Temp 36.6 C 02/18/17 08:00 Pulse 81 02/18/17 08:00 Resp 22 H 02/18/17 08:00 BP 139/90 02/18/17 08:18 Pulse Ox 95 02/18/17 08:00 Med Orders - Current: Current Medications Discontinued Medications Artificial Tears (Refresh Plus 0.5%) 1 each EYEBOTH ASDIRECTED PRN PRN Reason: Dry Eyes Last Admin: 02/18/17 10:34 Dose: 1 applic Bupropion HCl (Wellbutrin Sr) 150 mg PO BID [facility] Last Admin: 02/18/17 08:21 Dose: 150 mg Diphenhydramine HCl (Benadryl) 25 mg PO BEDTIME PRN PRN Reason: Insomnia Last Admin: 02/18/17 01:28 Dose: 25 mg Enoxaparin Sodium (Lovenox) 40 mg SUBCUT Q24H [facility] Last Admin: 02/18/17 08:33 Dose: 40 mg Escitalopram Oxalate (Lexapro) 20 mg PO DAILY [facility] Last Admin: 02/18/17 08:31 Dose: 20 mg Folic Acid (Folic Acid) 1 mg PO DAILY [facility] Last Admin: 02/18/17 08:21 Dose: 1 mg Multivitamins/Minerals 10 ml/Thiamine HCl 100 mg/ Folic Acid 1 mg/ Sodium Chloride 1,011.2 mls @ 999 mls/hr IV ONETIME ONE Stop: 02/15/17 16:54 Last Admin: 02/15/17 16:49 Dose: 999 mls/hr Ibuprofen (Motrin) 400 mg PO Q6H PRN PRN Reason: Headache/Pain Last Admin: 02/18/17 01:27 Dose: 400 mg Influenza Virus Vaccine (Fluarix Quad [id number]) 60 mcg IM .ONCE ONE Stop: 02/16/17 00:31 Levothyroxine Sodium (Levothyroxine) 150 mcg PO ACBREAKFAST [facility] Last Admin: 02/18/17 06:39 Dose: 150 mcg Lisinopril (Prinivil) 2.5 mg PO DAILY [facility] Last Admin: 02/18/17 08:18 Dose: 2.5 mg Lorazepam (Ativan) 0 mg IVPUSH Q4H PRN; Protocol PRN Reason: Agitation Last Admin: 02/17/17 16:37 Dose: 1 mg Nicotine (Habitrol) 21 mg TRDERM DAILY [facility] Last Admin: 02/18/17 10:34 Dose: 21 mg Nitroglycerin (Nitrostat) 0.4 mg SL ASDIRECTED [facility] Ondansetron HCl (Zofran) 4 mg IVPUSH Q4H PRN PRN Reason: Nausea Last Admin: 02/17/17 21:07 Dose: 4 mg Pantoprazole Sodium (Protonix) 40 mg PO DAILY [facility] Last Admin: 02/18/17 08:21 Dose: 40 mg Combivent Respimat 1 (Puff) 1 each INH ASDIRECTED [facility] Simvastatin (Zocor) 20 mg PO DAILY [facility] Last Admin: 02/18/17 08:21 Dose: 20 mg Thiamine HCl (Vitamin B-1) 100 mg PO DAILY [facility] Last Admin: 02/18/17 08:21 Dose: 100 mg *Q Meaningful Use (DIS) - VTE *Q VTE Criteria *Q: - Stroke *Q Stroke Criteria *Q: - AMI *Q AMI Criteria *Q: - Free Text/Narrative Note: I have examined the patient. I have discussed findings and treatment plan with resident. I agree with the assessment and plan outlined in the following resident's note.
== END 2017-02-18 12:35 | disposition home or self-care (01) | DRG 775 ==
LOC: MW.ED 15:48 → MW.ICU 17:52 → MW.MS 02-16 20:16
PROVIDERS: ADMIT Internal Medicine; ATTEND Internal Medicine
DX: F10.229 Alcohol dependence with intoxication, unspecified (principal); F10.239 Alcohol dependence with withdrawal, unspecified; E87.1 Hypo-osmolality and hyponatremia; F41.8 Other specified anxiety disorders; I25.10 Atherosclerotic heart disease of native coronary artery without angina pectoris; E78.00 Pure hypercholesterolemia, unspecified; I25.2 Old myocardial infarction; J44.9 Chronic obstructive pulmonary disease, unspecified; F32.9 Major depressive disorder, single episode, unspecified; E03.9 Hypothyroidism, unspecified; F17.200 Nicotine dependence, unspecified, uncomplicated; G25.2 Other specified forms of tremor; R11.0 Nausea; Z88.0 Allergy status to penicillin; Z79.899 Other long term (current) drug therapy
CPT/HCPCS: 36415; 71010; 71010-26; 80048; 80053; 80305; 85025; 93005; 96365; 97116-GP; 97161-GP; 97530-GP; 99283; 99285-25; A9270-GY; G0480; J1650; J2060; J2405; J3411; J7040

== ENCOUNTER 2017-03-26 11:14 | Emergency (ER) | payer BC ==
[2017-03-26 11:28] VITALS: BP 136/96
--- NOTE | 2017-03-26 12:11 | EDM.PDOCBH ---
ED HPI GENERAL MEDICAL PROBLEM - General Chief Complaint: Behavioral/Psych Stated Complaint: MENTAL EVAL Time Seen by Provider: 03/26/17 11:26 Source of Information: Reports: Patient, Police History Limitations: Reports: No Limitations - History of Present Illness INITIAL COMMENTS - FREE TEXT/NARRATIVE: HISTORY AND PHYSICAL: History of present illness: [Patient comes to the emergency room by EMS with police escort. Patient states that she's been drinking alcohol all night and into this morning. parking regulation enforcement officer provides patient's history today. He reports that the patient called 911 requesting that an officer bring a gun to her so she can end her life. Police arrived to her home to check on her where she again verbalized a desire to commit suicide. Officer noticed a large quantity of beer bottles in the garbage and a half empty bottle of beer near the patient. She is transported to the ER by EMS for suicidal ideation. Patient has been asleep most of the time that she is in the ER. She does arouse when her name is said and states that she would never commit suicide. She denies any pain or injury. Chart review shows a history of multiple ER visits for alcohol intoxication and a previous clearance for psychiatric admission. 500 mL normal saline running at TKO when arrived to ER. Review of systems: As per history of present illness and below otherwise all systems reviewed and negative. Past medical history: As per history of present illness and as reviewed below otherwise noncontributory. Surgical history: As per history of present illness and as reviewed below otherwise noncontributory. Social history: No reported history of drug or alcohol abuse. Family history: As per history of present illness and as reviewed below otherwise noncontributory. Physical exam: General: Frail elderly-appearing female in no acute distress. She is snoring and sleeping deeply on exam table in the position but is easily arousable with conversation. Smells strongly of alcohol. She is observed to be talking to herself loudly at times. HEENT: Atraumatic, normocephalic. Lungs: Clear to auscultation, breath sounds equal bilaterally. Heart: S1S2, regular rate and rhythm. Abdomen: Soft, nondistended, nontender. Negative for masses guarding and rebound. Pelvis: Stable nontender. Genitourinary: Deferred. Rectal: Deferred. Extremities: Atraumatic. Neurovascular unremarkable. Neuro: Nonfocal Diagnostics: [EKG, TSH, urinalysis, acetaminophen level, CMP, CBC, alcohol level, T3, magnesium, salicylate, urine drug screen] Therapeutics: [banana bag, Ativan 1 mg IV] Impression: [suicidal ideation alcohol intoxication alcohol abuse] Plan: [Patient verbalizes suicidal ideation to RN in ER. Will transfer patient to facility with a psychiatric unit for further evaluation. Patient is placed on a psychiatric hold. 1624: [facility] agrees to accept patient. [facility] will transfer patient. ] Definitive disposition and diagnosis as appropriate pending reevaluation and review of above. 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 - Related Data Allergies Allergy/AdvReac Type Severity Reaction Status Date / Time Penicillins Allergy Mild Hives Verified 03/26/17 11:29 Home Meds: Home Meds Aspirin [Halfprin] 81 mg PO DAILY #10 tab.ec 01/22/16 [Rx] Escitalopram [Lexapro] 20 mg PO DAILY #10 tablet 01/22/16 [Rx] Levothyroxine Sodium 150 mcg PO ACBREAKFAST 07/19/16 [History] buPROPion HCl [Wellbutrin SR] 150 mg PO BID 07/19/16 [History] Pantoprazole [ProTONIX] 40 mg PO DAILY #14 tab.cr 10/06/16 [Rx] Albuterol/Ipratropium [Combivent Respimat] 1 puff INH ASDIRECTED 10/12/16 [ History] Lisinopril 2.5 mg PO DAILY 10/12/16 [History] Nitroglycerin 0.4 mg SL ASDIRECTED 10/12/16 [History] Simvastatin 1 tab PO DAILY 10/12/16 [History] Ondansetron [IMW: Ondansetron ODT] 1 tab PO DAILY 02/16/17 [History] Tiotropium [Spiriva Handihaler] 1 puff DAILY 02/16/17 [History] Past Medical History HEENT History: Reports: None Cardiovascular History: Reports: CAD, High Cholesterol, [place] Respiratory History: Reports: Asthma, COPD Gastrointestinal History: Reports: Pancreatitis Genitourinary History: Reports: None GRINDER History: Reports: None Musculoskeletal History: Reports: None Neurological History: Reports: None Psychiatric History: Reports: Addiction, Depression Endocrine/Metabolic History: Reports: Hypothyroidism Hematologic History: Reports: None Immunologic History: Reports: None Oncologic (Cancer) History: Reports: None Dermatologic History: Reports: None - Infectious Disease History Infectious Disease History: Reports: None - Past Surgical History Musculoskeletal Surgical History: Reports: Other (See Below) Social & Family History - Family History Family Medical History: Noncontributory HEENT: Reports: None Cardiac: Reports: None Respiratory: Reports: None GI: Reports: None : Reports: None OBGYN: Reports: None Musculoskeletal: Reports: None Neurological: Reports: None Psychiatric: Reports: None Endocrine/Metabolic: Reports: None Hematologic: Reports: None Immunologic: Reports: None Dermatologic: Reports: None Oncologic: Reports: None - Tobacco Use Smoking Status *Q: Current Status Unknown Years of Tobacco use: 40 Packs/Tins Daily: 3 Used Tobacco, but Quit: No Second Hand Smoke Exposure: No - Caffeine Use Caffeine Use: Reports: None - Alcohol Use Days Per Week of Alcohol Use: 7 Number of Drinks Per Day: 6 Total Drinks Per Week: 42 - Recreational Drug Use Recreational Drug Use: No - Living Situation & Occupation Living situation: Reports: ED ROS GENERAL - Review of Systems Review Of Systems: ROS reveals no pertinent complaints other than HPI. ED EXAM, BEHAVIORAL HEALTH - Physical Exam Exam: See Below COURSE, BEHAVIORAL HEALTH COMP - Course Vital Signs: Last Vital Signs Temp 97.1 F 03/26/17 11:21 Pulse 67 03/26/17 11:21 Resp 20 03/26/17 11:21 BP 136/96 H 03/26/17 11:21 Pulse Ox 98 03/26/17 11:21 Orders, Labs, Meds: Active Orders 24 hr Category Date Time Status EKG Documentation Completion [RC] STAT Care 03/26/17 11:33 Active FREE T3 [REF] Stat Lab 03/26/17 11:44 Received Laboratory Tests 03/26/17 03/26/17 03/26/17 Range/Units 11:44 11:44 11:51 WBC 5.03 (4.0-11.0) K/uL RBC 4.17 L (4.30-5.90) M/uL Hgb 14.2 (12.0-16.0) g/dL Hct 39.5 (36.0-46.0) % MCV 94.7 (80.0-98.0) fL MCH 34.1 H (27.0-32.0) pg MCHC 35.9 (31.0-37.0) g/dL RDW Std Deviation 50.9 (28.0-62.0) fl RDW Coeff of Ayleen 15 (11.0-15.0) % Plt Count 222 (150-400) K/uL MPV 9.70 (7.40-12.00) fL Neut % (Auto) 56.7 (48.0-80.0) % Lymph % (Auto) 33.8 (16.0-40.0) % [place] % (Auto) 8.7 (0.0-15.0) % Eos % (Auto) 0.4 (0.0-7.0) % Baso % (Auto) 0.4 (0.0-1.5) % Neut # (Auto) 2.9 (1.4-5.7) K/uL Lymph # (Auto) 1.7 (0.6-2.4) K/uL [place] # (Auto) 0.4 (0.0-0.8) K/uL Eos # (Auto) 0.0 (0.0-0.7) K/uL Baso # (Auto) 0.0 (0.0-0.1) K/uL Nucleated RBC % 0.0 /100WBC Nucleated RBCs # 0 K/uL Sodium 127 L (136-146) mmol/L Potassium 4.3 (3.5-5.1) mmol/L Chloride 96 L (98-110) mmol/L Carbon Dioxide 21 (21-31) mmol/L BUN 4 L (6.0-23.0) mg/dL Creatinine 0.6 (0.6-1.5) mg/dL Est Cr Clr Drug Dosing 73.82 mL/min Estimated GFR (MDRD) > 60.0 ml/min Glucose 74 (60-110) mg/dL Calcium 8.4 L (8.8-10.8) mg/dL Magnesium 1.7 (1.5-2.3) mEq/L Total Bilirubin 0.3 (0.1-1.5) mg/dL AST 46 H (5-40) IU/L ALT 24 (8-54) IU/L Alkaline Phosphatase 83 (40-150) Total Protein 6.7 (6.0-8.0) g/dL Albumin 4.0 (3.4-4.8) g/dL Globulin 2.7 (2.0-3.5) g/dL Albumin/Globulin Ratio 1.5 (1.3-2.8) TSH 3rd Generation 14.19 H (0.47-5.0) uIU/mL Urine Color Urine Appearance Urine pH (5.0-8.0) Ur Specific [place] (1.001-1.035) Urine Protein (NEGATIVE) mg/dL Urine Glucose (UA) (NEGATIVE) mg/dL Urine Ketones (NEGATIVE) mg/dL Urine Occult Blood (NEGATIVE) Urine Nitrite (NEGATIVE) Urine Bilirubin (NEGATIVE) Urine Urobilinogen (<2.0) EU/dL Ur Leukocyte Esterase (NEGATIVE) Urine RBC (0-2/HPF) Urine WBC (0-5/HPF) Ur Epithelial Cells (NONE-FEW) Amorphous Sediment (NEGATIVE) Urine Bacteria (NEGATIVE) Urine Mucus (NONE-MOD) Salicylates < 5.0 (0-20) mg/dL Urine Opiates Screen NEGATIVE (NEGATIVE) Ur Oxycodone Screen NEGATIVE (NEGATIVE) Urine Methadone Screen NEGATIVE (NEGATIVE) Acetaminophen < 3.0 ug/mL Ur Barbiturates Screen NEGATIVE (NEGATIVE) Ur Phencyclidine Scrn NEGATIVE (NEGATIVE) Ur Amphetamine Screen NEGATIVE (NEGATIVE) U Methamphetamines Scrn NEGATIVE (NEGATIVE) U Benzodiazepines Scrn NEGATIVE (NEGATIVE) U Cocaine Metab Screen NEGATIVE (NEGATIVE) U Marijuana (THC) Screen NEGATIVE (NEGATIVE) Ethyl Alcohol 282.6 mg/dL 03/26/17 Range/Units 11:51 WBC (4.0-11.0) K/uL RBC (4.30-5.90) M/uL Hgb (12.0-16.0) g/dL Hct (36.0-46.0) % MCV (80.0-98.0) fL MCH (27.0-32.0) pg MCHC (31.0-37.0) g/dL RDW Std Deviation (28.0-62.0) fl RDW Coeff of Ayleen (11.0-15.0) % Plt Count (150-400) K/uL MPV (7.40-12.00) fL Neut % (Auto) (48.0-80.0) % Lymph % (Auto) (16.0-40.0) % [place] % (Auto) (0.0-15.0) % Eos % (Auto) (0.0-7.0) % Baso % (Auto) (0.0-1.5) % Neut # (Auto) (1.4-5.7) K/uL Lymph # (Auto) (0.6-2.4) K/uL [place] # (Auto) (0.0-0.8) K/uL Eos # (Auto) (0.0-0.7) K/uL Baso # (Auto) (0.0-0.1) K/uL Nucleated RBC % /100WBC Nucleated RBCs # K/uL Sodium (136-146) mmol/L Potassium (3.5-5.1) mmol/L Chloride (98-110) mmol/L Carbon Dioxide (21-31) mmol/L BUN (6.0-23.0) mg/dL Creatinine (0.6-1.5) mg/dL Est Cr Clr Drug Dosing mL/min Estimated GFR (MDRD) ml/min Glucose (60-110) mg/dL Calcium (8.8-10.8) mg/dL Magnesium (1.5-2.3) mEq/L Total Bilirubin (0.1-1.5) mg/dL AST (5-40) IU/L ALT (8-54) IU/L Alkaline Phosphatase (40-150) Total Protein (6.0-8.0) g/dL Albumin (3.4-4.8) g/dL Globulin (2.0-3.5) g/dL Albumin/Globulin Ratio (1.3-2.8) TSH 3rd Generation (0.47-5.0) uIU/mL Urine Color YELLOW Urine Appearance CLEAR Urine pH 5.5 (5.0-8.0) Ur Specific [place] <= 1.005 (1.001-1.035) Urine Protein NEGATIVE (NEGATIVE) mg/dL Urine Glucose (UA) NEGATIVE (NEGATIVE) mg/dL Urine Ketones NEGATIVE (NEGATIVE) mg/dL Urine Occult Blood NEGATIVE (NEGATIVE) Urine Nitrite NEGATIVE (NEGATIVE) Urine Bilirubin NEGATIVE (NEGATIVE) Urine Urobilinogen 0.2 (<2.0) EU/dL Ur Leukocyte Esterase NEGATIVE (NEGATIVE) Urine RBC NONE SEEN (0-2/HPF) Urine WBC 0-2 (0-5/HPF) Ur Epithelial Cells FEW (NONE-FEW) Amorphous Sediment LIGHT (NEGATIVE) Urine Bacteria FEW (NEGATIVE) Urine Mucus LIGHT (NONE-MOD) Salicylates (0-20) mg/dL Urine Opiates Screen (NEGATIVE) Ur Oxycodone Screen (NEGATIVE) Urine Methadone Screen (NEGATIVE) Acetaminophen ug/mL Ur Barbiturates Screen (NEGATIVE) Ur Phencyclidine Scrn (NEGATIVE) Ur Amphetamine Screen (NEGATIVE) U Methamphetamines Scrn (NEGATIVE) U Benzodiazepines Scrn (NEGATIVE) U Cocaine Metab Screen (NEGATIVE) U Marijuana (THC) Screen (NEGATIVE) Ethyl Alcohol mg/dL Medications Discontinued Medications Generic Name Dose Route Start Last Admin Trade Name Freq PRN Reason Stop Dose Admin Sodium Chloride 1,000 mls @ 999 mls/hr 03/26/17 12:19 03/26/17 12:28 Normal Saline IV 03/26/17 13:19 999 mls/hr STAT ONE Administration Multivitamins/Minerals 10 ml/ 1,011.2 mls @ 999 mls/hr 03/26/17 12:56 13:20 Thiamine HCl 100 mg/ Folic IV 03/26/17 13:56 125 mls/hr Acid 1 mg/ Sodium Chloride ONETIME ONE Infusion Lorazepam 1 mg 03/26/17 14:33 03/26/17 14:45 Ativan IVPUSH 03/26/17 14:34 1 mg ONETIME ONE Administration Departure - Departure Time of Disposition: 16:27 Disposition: DC/Tfer to Psych Hosp/Unit 65 Condition: Good Clinical Impression: Suicidal ideation, Alcohol intoxication, Alcohol abuse, Hyponatremia - Discharge Information Referrals: PCP,Unknown [Primary Care Provider] - Forms: ED Department Discharge - My Orders Last 24 Hours: My Active Orders 03/26/17 11:33 EKG Documentation Completion [RC] STAT 03/26/17 11:44 FREE T3 [REF] Stat - Assessment/Plan Last 24 Hours: My Active Orders 03/26/17 11:33 EKG Documentation Completion [RC] STAT 03/26/17 11:44 FREE T3 [REF] Stat
[2017-03-26 12:13] LABS: ACETAMINOPHEN < 3.0 ug/mL; CHLORIDE,CL 96 mmol/L (98-110); SODIUM,NA 127 mmol/L (136-146)
[2017-03-26] MEDS ORDERED: Sodium Chloride 0.9% 1,000 ML IV ONE (12:19)
[2017-03-26] MEDS ORDERED: MVI, Adult with Vitamin K 10 ML, Thiamine 100 MG, Folic Acid 1 MG in Sodium Chloride 0.... IV ONE ×4 (12:56)
[2017-03-26] MEDS ORDERED: LORazepam 2 MG/ML SDV IVPUSH ONE ×2 (14:33→16:52)
[2017-03-26] MEDS ORDERED: LORazepam 2 MG/ML SDV ONE (16:55)
== END 2017-03-26 17:59 ==
LOC: MW.ED 11:14
DX: R45.851 Suicidal ideations (principal); E87.1 Hypo-osmolality and hyponatremia; F10.120 Alcohol abuse with intoxication, uncomplicated; E78.00 Pure hypercholesterolemia, unspecified; E03.9 Hypothyroidism, unspecified; Z88.0 Allergy status to penicillin; Z79.82 Long term (current) use of aspirin; Z79.899 Other long term (current) drug therapy
CPT/HCPCS: 36415; 80053; 80305; 81001; 83735; 84443; 84481; 85025; 93005; 96361; 96365; 96366; 96375; 96376; 99285; G0480; J2060; J3360; J3411; J7040

== ENCOUNTER 2017-11-07 08:07 | Emergency (ER) | payer BC ==
[2017-11-07] MEDS ORDERED: Sodium Chloride 0.9% 1,000 ML IV ONE (08:15)
--- NOTE | 2017-11-07 08:33 | EDM.PDOC ---
ED HPI GENERAL MEDICAL PROBLEM - General Chief Complaint: Behavioral/Psych Stated Complaint: AMB Time Seen by Provider: 11/07/17 08:14 - History of Present Illness INITIAL COMMENTS - FREE TEXT/NARRATIVE: HISTORY AND PHYSICAL: History of present illness: Patient is a 62-year-old female history of alcoholism and depression presents with a concern of alcohol abuse and depressive episode with suicidal ideation she denies any ingestions she states she was drinking prior to arrival she presents by paramedics with no other complaints. Review of systems: As per history of present illness and below otherwise all systems reviewed and negative. Past medical history: As per history of present illness and as reviewed below otherwise noncontributory. Surgical history: As per history of present illness and as reviewed below otherwise noncontributory. Social history: No reported history of drug or alcohol abuse. Family history: As per history of present illness and as reviewed below otherwise noncontributory. Physical exam: HEENT: Atraumatic, normocephalic, pupils reactive, negative for conjunctival pallor or scleral icterus, mucous membranes moist, throat clear, neck supple, nontender, trachea midline. Lungs: Clear to auscultation, breath sounds equal bilaterally, chest nontender. Heart: S1S2, regular, negative for clicks, rubs, or JVD. Abdomen: Soft, nondistended, nontender. Negative for masses or hepatosplenomegaly. Negative for costovertebral tenderness. Pelvis: Stable nontender. Genitourinary: Deferred. Rectal: Deferred. Extremities: Atraumatic, negative for cords or calf pain. Neurovascular unremarkable. Neuro: Awake, oriented. Cranial nerves II through XII unremarkable. Motor and sensory grossly normal limited grossly nonfocal exam Diagnostics: Psychiatric panel Therapeutics: None Impression: #1 alcohol abuse with dependence #2 depression with suicidal ideation Definitive disposition and diagnosis as appropriate pending reevaluation and review of above. - Related Data Allergies Allergy/AdvReac Type Severity Reaction Status Date / Time Penicillins Allergy Mild Hives Verified 11/07/17 08:20 Home Meds: Home Meds Aspirin [Halfprin] 81 mg PO DAILY #10 tab.ec 01/22/16 [Rx] Escitalopram [Lexapro] 20 mg PO DAILY #10 tablet 01/22/16 [Rx] Levothyroxine Sodium 150 mcg PO ACBREAKFAST 07/19/16 [History] buPROPion HCl [Wellbutrin SR] 150 mg PO BID 07/19/16 [History] Pantoprazole [ProTONIX] 40 mg PO DAILY #14 tab.cr 10/06/16 [Rx] Albuterol/Ipratropium [Combivent Respimat] 1 puff INH ASDIRECTED 10/12/16 [ History] Lisinopril 2.5 mg PO DAILY 10/12/16 [History] Nitroglycerin 0.4 mg SL ASDIRECTED 10/12/16 [History] Simvastatin 1 tab PO DAILY 10/12/16 [History] Ondansetron [IMW: Ondansetron ODT] 1 tab PO DAILY 02/16/17 [History] Tiotropium [Spiriva Handihaler] 1 puff DAILY 02/16/17 [History] Past Medical History HEENT History: Reports: None Cardiovascular History: Reports: CAD, High Cholesterol, [place] Respiratory History: Reports: Asthma, COPD Gastrointestinal History: Reports: Pancreatitis Genitourinary History: Reports: None 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 Musculoskeletal History: Reports: None Neurological History: Reports: None Psychiatric History: Reports: Addiction, Depression Endocrine/Metabolic History: Reports: Hypothyroidism Hematologic History: Reports: None Immunologic History: Reports: None Oncologic (Cancer) History: Reports: None Dermatologic History: Reports: None - Infectious Disease History Infectious Disease History: Reports: None, Other (See Below) Other Infectious Disease History: unable to assess - Past Surgical History Musculoskeletal Surgical History: Reports: Other (See Below) Social & Family History - Family History Family Medical History: Noncontributory HEENT: Reports: None Cardiac: Reports: None Respiratory: Reports: None GI: Reports: None : Reports: None OBGYN: Reports: None Musculoskeletal: Reports: None Neurological: Reports: None Psychiatric: Reports: None Endocrine/Metabolic: Reports: None Hematologic: Reports: None Immunologic: Reports: None Dermatologic: Reports: None Oncologic: Reports: None - Tobacco Use Smoking Status *Q: Current Every Day Smoker Years of Tobacco use: 40 Packs/Tins Daily: 1 - Caffeine Use Caffeine Use: Reports: None - Recreational Drug Use Recreational Drug Use: No - Living Situation & Occupation Living situation: Reports: ED ROS GENERAL - Review of Systems Review Of Systems: ROS reveals no pertinent complaints other than HPI. ED EXAM, GENERAL - Physical Exam Exam: See Below (The dictation) Course - Vital Signs Last Recorded V/S: Last Vital Signs Temp 36.9 C 11/07/17 08:13 Pulse 69 11/07/17 08:13 Resp 18 11/07/17 08:13 BP 144/85 H 11/07/17 08:13 Pulse Ox 95 11/07/17 08:13 - Orders/Labs/Meds Orders: Active Orders 24 hr Category Date Time Status EKG Documentation Completion [RC] STAT Care 11/07/17 08:15 Active DRUG SCREEN, URINE [URCHEM] Stat Lab 11/07/17 08:43 Ordered ETOH [ETHANOL BLOOD MEDICAL] [CHEM] Stat Lab 11/07/17 09:53 Ordered UA W/MICROSCOPIC [URIN] Stat Lab 11/07/17 08:43 Ordered Labs: Laboratory Tests 11/07/17 11/07/17 11/07/17 Range/Units 08:12 08:31 08:31 WBC 11.29 H (4.0-11.0) K/uL RBC 4.14 L (4.30-5.90) M/uL Hgb 13.6 (12.0-16.0) g/dL Hct 39.2 (36.0-46.0) % MCV 94.7 (80.0-98.0) fL MCH 32.9 H (27.0-32.0) pg MCHC 34.7 (31.0-37.0) g/dL RDW Std Deviation 50.9 (28.0-62.0) fl RDW Coeff of Ayleen 15 (11.0-15.0) % Plt Count 327 (150-400) K/uL MPV 8.90 (7.40-12.00) fL Neut % (Auto) 76.3 (48.0-80.0) % Lymph % (Auto) 17.8 (16.0-40.0) % [place] % (Auto) 5.0 (0.0-15.0) % Eos % (Auto) 0.5 (0.0-7.0) % Baso % (Auto) 0.4 (0.0-1.5) % Neut # (Auto) 8.6 H (1.4-5.7) K/uL Lymph # (Auto) 2.0 (0.6-2.4) K/uL [place] # (Auto) 0.6 (0.0-0.8) K/uL Eos # (Auto) 0.1 (0.0-0.7) K/uL Baso # (Auto) 0.0 (0.0-0.1) K/uL Nucleated RBC % 0.0 /100WBC Nucleated RBCs # 0 K/uL Sodium 131 L (136-145) mmol/L Potassium 4.5 (3.5-5.1) mmol/L Chloride 98 (98-107) mmol/L Carbon Dioxide 26.5 (21.0-32.0) mmol/L BUN 5 L (7.0-18.0) mg/dL Creatinine 0.5 L (0.6-1.0) mg/dL Est Cr Clr Drug Dosing 89.27 mL/min Estimated GFR (MDRD) > 60.0 ml/min Glucose 86 (74-106) mg/dL POC Glucose 84 (60-110) mg/dL Calcium 9.0 (8.5-10.1) mg/dL Magnesium 2.3 (1.8-2.4) mg/dL Total Bilirubin 0.3 (0.2-1.0) mg/dL AST 36 (15-37) IU/L ALT 24 (14-63) IU/L Alkaline Phosphatase 71 (46-116) U/L Total Protein 7.5 (6.4-8.2) g/dL Albumin 4.1 (3.4-5.0) g/dL Globulin 3.4 (2.0-3.5) g/dL Albumin/Globulin Ratio 1.2 L (1.3-2.8) TSH 3rd Generation 6.76 H (0.36-3.74) uIU/mL Urine Color Urine Appearance Urine pH (5.0-8.0) Ur Specific [place] (1.001-1.035) Urine Protein (NEGATIVE) mg/dL Urine Glucose (UA) (NEGATIVE) mg/dL Urine Ketones (NEGATIVE) mg/dL Urine Occult Blood (NEGATIVE) Urine Nitrite (NEGATIVE) Urine Bilirubin (NEGATIVE) Urine Urobilinogen (<2.0) EU/dL Ur Leukocyte Esterase (NEGATIVE) Urine RBC (0-2/HPF) Urine WBC (0-5/HPF) Ur Epithelial Cells (NONE-FEW) Urine Bacteria (NEGATIVE) Salicylates 4.8 (0-20) mg/dL Urine Opiates Screen (NEGATIVE) Ur Oxycodone Screen (NEGATIVE) Urine Methadone Screen (NEGATIVE) Acetaminophen 0.0 ug/mL Ur Barbiturates Screen (NEGATIVE) Ur Phencyclidine Scrn (NEGATIVE) Ur Amphetamine Screen (NEGATIVE) U Methamphetamines Scrn (NEGATIVE) U Benzodiazepines Scrn (NEGATIVE) U Cocaine Metab Screen (NEGATIVE) U Marijuana (THC) Screen (NEGATIVE) Ethyl Alcohol 263 mg/dL 11/07/17 11/07/17 Range/Units 08:43 08:43 WBC (4.0-11.0) K/uL RBC (4.30-5.90) M/uL Hgb (12.0-16.0) g/dL Hct (36.0-46.0) % MCV (80.0-98.0) fL MCH (27.0-32.0) pg MCHC (31.0-37.0) g/dL RDW Std Deviation (28.0-62.0) fl RDW Coeff of Ayleen (11.0-15.0) % Plt Count (150-400) K/uL MPV (7.40-12.00) fL Neut % (Auto) (48.0-80.0) % Lymph % (Auto) (16.0-40.0) % [place] % (Auto) (0.0-15.0) % Eos % (Auto) (0.0-7.0) % Baso % (Auto) (0.0-1.5) % Neut # (Auto) (1.4-5.7) K/uL Lymph # (Auto) (0.6-2.4) K/uL [place] # (Auto) (0.0-0.8) K/uL Eos # (Auto) (0.0-0.7) K/uL Baso # (Auto) (0.0-0.1) K/uL Nucleated RBC % /100WBC Nucleated RBCs # K/uL Sodium (136-145) mmol/L Potassium (3.5-5.1) mmol/L Chloride (98-107) mmol/L Carbon Dioxide (21.0-32.0) mmol/L BUN (7.0-18.0) mg/dL Creatinine (0.6-1.0) mg/dL Est Cr Clr Drug Dosing mL/min Estimated GFR (MDRD) ml/min Glucose (74-106) mg/dL POC Glucose (60-110) mg/dL Calcium (8.5-10.1) mg/dL Magnesium (1.8-2.4) mg/dL Total Bilirubin (0.2-1.0) mg/dL AST (15-37) IU/L ALT (14-63) IU/L Alkaline Phosphatase (46-116) U/L Total Protein (6.4-8.2) g/dL Albumin (3.4-5.0) g/dL Globulin (2.0-3.5) g/dL Albumin/Globulin Ratio (1.3-2.8) TSH 3rd Generation (0.36-3.74) uIU/mL Urine Color YELLOW Urine Appearance CLEAR Urine pH 6.0 (5.0-8.0) Ur Specific [place] <= 1.005 (1.001-1.035) Urine Protein NEGATIVE (NEGATIVE) mg/dL Urine Glucose (UA) NEGATIVE (NEGATIVE) mg/dL Urine Ketones NEGATIVE (NEGATIVE) mg/dL Urine Occult Blood NEGATIVE (NEGATIVE) Urine Nitrite NEGATIVE (NEGATIVE) Urine Bilirubin NEGATIVE (NEGATIVE) Urine Urobilinogen 0.2 (<2.0) EU/dL Ur Leukocyte Esterase NEGATIVE (NEGATIVE) Urine RBC 0-2 (0-2/HPF) Urine WBC 0-1 (0-5/HPF) Ur Epithelial Cells RARE (NONE-FEW) Urine Bacteria RARE (NEGATIVE) Salicylates (0-20) mg/dL Urine Opiates Screen NEGATIVE (NEGATIVE) Ur Oxycodone Screen NEGATIVE (NEGATIVE) Urine Methadone Screen NEGATIVE (NEGATIVE) Acetaminophen ug/mL Ur Barbiturates Screen NEGATIVE (NEGATIVE) Ur Phencyclidine Scrn NEGATIVE (NEGATIVE) Ur Amphetamine Screen NEGATIVE (NEGATIVE) U Methamphetamines Scrn NEGATIVE (NEGATIVE) U Benzodiazepines Scrn NEGATIVE (NEGATIVE) U Cocaine Metab Screen NEGATIVE (NEGATIVE) U Marijuana (THC) Screen NEGATIVE (NEGATIVE) Ethyl Alcohol mg/dL Meds: Medications Discontinued Medications Generic Name Dose Route Start Last Admin Trade Name Freq PRN Reason Stop Dose Admin Sodium Chloride 1,000 mls @ 999 mls/hr 11/07/17 08:15 11/07/17 08:48 Normal Saline IV 11/07/17 09:15 999 mls/hr STAT ONE Administration Departure - Departure Time of Disposition: 10:02 Disposition: DC/Tfer to Psych Hosp/Unit 65 Condition: Good Clinical Impression: Alcohol abuse, Depressive disorder - Discharge Information Forms: ED Department Discharge - My Orders Last 24 Hours: My Active Orders 11/07/17 08:15 EKG Documentation Completion [RC] STAT 11/07/17 08:43 DRUG SCREEN, URINE [URCHEM] Stat UA W/MICROSCOPIC [URIN] Stat 11/07/17 09:53 ETOH [ETHANOL BLOOD MEDICAL] [CHEM] Stat - Assessment/Plan Last 24 Hours: My Active Orders 11/07/17 08:15 EKG Documentation Completion [RC] STAT 11/07/17 08:43 DRUG SCREEN, URINE [URCHEM] Stat UA W/MICROSCOPIC [URIN] Stat 11/07/17 09:53 ETOH [ETHANOL BLOOD MEDICAL] [CHEM] Stat
[2017-11-07 09:16] LABS: CHLORIDE,CL 98 mmol/L (98-107); SODIUM,NA 131 mmol/L (136-145)
[2017-11-07] MEDS ORDERED: LORazepam 2 MG/ML SDV ONE (12:33)
[2017-11-07] MEDS ORDERED: LORazepam 2 MG/ML SDV IVPUSH PRN (12:33)
[2017-11-07] MEDS ORDERED: Nicotine 7 MG/24 Hr Patch TRDERM ONE (12:45)
[2017-11-07 15:30] VITALS: BP 144/93
== END 2017-11-07 14:20 ==
LOC: MW.ED 08:07
DX: F10.229 Alcohol dependence with intoxication, unspecified (principal); F32.9 Major depressive disorder, single episode, unspecified; Y90.8 Blood alcohol level of 240 mg/100 ml or more
CPT/HCPCS: 36415; 80053; 80305; 81001; 82962; 83735; 84443; 85025; 93005; 96361; 96374; 99285; A9270; G0480; J2060; J7040; 99283